=== PATIENT | female | born 1930 | race Caucasian/White ===

== ENCOUNTER 2017-07-04 12:49 | Observation (INO) | payer MEDICARE, BC ==
[2017-07-04] MEDS ORDERED: Aspirin TAB* 325 MG PO ONE (13:08)
[2017-07-04 13:38] LABS: ABS Basophils 0 10^3/ul (0-0.2); ABS Eosinophils 0.1 10^3/ul (0-0.6); ABS Lymphocytes 0.8 10^3/ul (1.0-4.8); ABS Monocytes 0.7 10^3/ul (0-0.8); ABS Nucleated RBC 0 10^3/ul; Hematocrit 34 % (35-47); Hemoglobin 11.4 g/dl (12.0-16.0); Mean Corpuscular HGB Conc 34 g/dl (31-36); Mean Corpuscular Hemoglobin 32 pg (27-31); Mean Corpuscular Volume 96 fL (80-97); Mean Platelet Volume 6 um3 (7.4-10.4); Nucleated Red Blood Cells % 0; Platelet Count 187 10^3/ul (150-450); Red Blood Count 3.52 10^6/ul (4.0-5.4); Red Cell Distribution Width 17 % (10.5-15); White Blood Count 6.6 10^3/ul (3.5-10.8)
[2017-07-04 13:53] LABS: EGFR Non-African American 58.3 (>60)
--- NOTE | 2017-07-04 14:05 | RAD ---
INDICATION: Chest pain with radiation into back, contrast allergy. COMPARISON: Correlation is made with a prior CT of the chest from September 22, 2009 and a prior chest x-ray study from December 12, 2015. TECHNIQUE: A CT scan of the chest was performed without intravenous contrast. Contiguous axial sections were obtained from the lung apices through the lung bases. Images were reconstructed in the coronal and sagittal planes. FINDINGS: The lungs are hyperinflated and clear. No pleural effusion or pneumothorax is seen. There are small Bochdalek hernias present at both lung bases containing retroperitoneal fat on the right and retroperitoneal fat and a small portion of the left kidney on the left side. No significant enlarged mediastinal or hilar lymph nodes are seen. There is a small hiatal hernia. The heart is within normal limits in size. There are coronary artery calcifications present. No pericardial effusion is present. The thoracic aorta is normal in caliber. There is moderate calcific plaque present. Images of the upper abdomen demonstrate postcholecystectomy changes, no acute finding is seen. There is a mild to moderate chronic compression fracture of the T5 vertebral body with loss of height of approximately 40% this appears to be present on the prior CT of the chest from 2009. No other fractures are seen. IMPRESSION: 1. NO EVIDENCE FOR ACUTE FINDING. 2. CHRONIC IMPRESSION FRACTURE OF THE T5 VERTEBRAL BODY. 3. SMALL HIATAL HERNIA. 4. SMALL BILATERAL BOCHDALEK HERNIAS.
[2017-07-04] MEDS ORDERED: Ondansetron INJ* 2 MG/ML VIAL IV PRN (16:49)
[2017-07-04] MEDS ORDERED: cloNIDine 0.2 MG PATCH* 0.2 MG/24 HR 7 DAY PATCH TRANSDERM SCH (17:00)
[2017-07-04] MEDS ORDERED: Verapamil SR TAB* 240 MG PO SCH (18:00)
[2017-07-04] MEDS: Dicyclomine CAP* 10 MG PO SCH (20:32)
[2017-07-04] MEDS: Magnesium Oxide TAB* 400 MG PO SCH (20:32)
[2017-07-04] MEDS: Omeprazole CAP* 20 MG PO SCH (20:32)
[2017-07-04] MEDS: Heparin VIAL(*) 5000 UNITS/ML VIAL (FIVE THOUSAND) SUBCUT SCH (20:32)
--- NOTE | 2017-07-04 21:18 | HP ---
HISTORY AND PHYSICAL: ATTENDING PROVIDER: * (DICTATED BY IDA GARLAND NP) DATE: 07/04/17 ADDENDUM: Please note the repeat troponin came back at 0.031. While not abnormal. It is trending up. She is not having any chest pain currently. My plan at this point were to repeat a troponin in 3 hours to make sure that it is not continuing to elevate. I will repeat an EKG. If the troponin becomes abnormal, I certainly will add on heparin and call Cardiology and get an echo or if she starts having active chest pain again. My plan at this point would be to continue on aspirin. She is on amlodipine, I will continue that. I will give her a small dose of a beta-rafy in terms of her diarrhea that she has been having. I will check stool cultures as well and we will follow her closely and place her on telemetry and continue with medical management. Again , she is asymptomatic at this point. In terms of the beta-rafy, actually I am probably going to hold off. She is already on Calan (verapamil), so I do not want to lower her heart rate. She is rated around the 70s and again if the troponin does continue to elevate then I will consider adding it or if she she becomes symptomatic, but I do think that we should watch her, check another third troponin and make sure it is not trending up and continue to follow. IDA GARLAND NP [id number]/[facility] #: [id number] MTDBrandon
--- NOTE | 2017-07-04 22:22 | ED ---
Tariq Griffin Julia, scribed for Andrea Storey MD on 07/04/17 at 1316 . HPI Chest Pain - HPI Summary HPI Summary: This patient is a 87 year old F BIBA to [facility] accompanied by family with a chief complaint of chest pain radiating to back occurring this morning at 11:30 with spontaneous relief. Patient reports swollen feet and productive cough. Patient has a history of roughly 10 previous episodes with similar symptoms, cause is unknown. Patient reports that she had relief from taking her s NTG this morning. - History of Current Complaint Chief Complaint: EDChestPainROMI Time Seen by Provider: 07/04/17 12:54 Hx Obtained From: Patient Onset/Duration: Started Hours Ago Timing: Lasting Minutes Current Severity: Mild Pain Intensity: 0 Chest Pain Radiates: Yes Chest Pain Radiates To:: Back Associated Signs and Symptoms: Positive: Other: - swollen feet and productive cough - Allergy/Home Medications Allergies/Adverse Reactions: Allergies Allergy/AdvReac Type Severity Reaction Status Date / Time Enalapril [From Vasotec] Allergy Intermediate muscle pain Verified 07/04/17 13: 05 Iodine Allergy Intermediate Hives Verified 07/04/17 13:05 Tetanus Toxoid Allergy Intermediate swelling Verified 07/04/17 13:05 of the arm Valsartan [From Diovan] Allergy Intermediate abnormal Verified 07/04/17 13:05 lab values per pt Sulfa Drugs Allergy Mild weakness Verified 07/04/17 13:05 sodium pentathol Allergy Mild weakness Uncoded 07/04/17 13:05 iv dye Allergy Hives Uncoded 07/04/17 13:05 Home Medications: Home Medications Bumetanide TAB* [Bumex 1 MG TAB*] 0.5 - 1 mg PO DAILY PRN 07/04/17 [History Confirmed 07/04/17] Calcium 500 mg PO BID 07/04/17 [History Confirmed 07/04/17] Colchicine* [Colcrys*] 0.6 mg PO TID PRN 07/04/17 [History Confirmed 07/04/17] Cyanocobalamin [Vitamin B-12] 1,000 mcg PO DAILY 07/04/17 [History Confirmed 11/14] Estradiol VAG CM (NF) [Estrace VAG CM (NF)] 1 applic VAGINAL .TWICE A WEEK PRN 07/04/17 [History Confirmed 07/04/17] Fexofenadine (NF) [Lalitha 180 (NF)] 180 mg PO DAILY PRN 07/04/17 [History Confirmed 07/04/17] Guaifenesin [Tussin Adult] 5 - 10 ml PO Q4HR PRN 07/04/17 [History Confirmed 11/14] Hyoscyamine Sulfate [Levsin] 0.125 mg PO DAILY PRN 07/04/17 [History Confirmed 07/04/17] Loperamide HCl [Imodium A-D] 2 mg PO DAILY PRN 07/04/17 [History Confirmed 07/04] Verapamil SR TAB* [Calan Sr TAB*] 240 mg PO QPM 07/04/17 [History Confirmed 11/14] amLODIPine TAB* [Norvasc 5 mg TAB*] 5 mg PO DAILY 07/04/17 [History Confirmed ] PMH/Surg Hx/FS Hx/Imm Hx Endocrine/Hematology History: Reports: Hx Blood Transfusions - 42 UNITS PRBC & 16 UNITS PLATELETS TOTAL HX, Hx Bone Marrow Disease - MYELODYSPLASIA, Hx Anemia Cardiovascular History: Reports: Hx Hypertension - ON MEDICATION FOR Denies: Hx Congestive Heart Failure, Hx Pacemaker/ICD, Other Cardiovascular Problems/Disorders Respiratory History: Reports: Hx Asthma Denies: Hx Chronic Obstructive Pulmonary Disease (COPD), Other Respiratory Problems/Disorders GI History: Reports: Hx Gastroesophageal Reflux Disease - ON MEDICATION FOR, Hx Hiatal Hernia, Hx Irritable Bowel, Other GI Disorders - COLITIS AT TIMES History: Denies: Other Problems/Disorders Musculoskeletal History: Reports: Hx Arthritis - HANDS, BACK, Hx Tendonitis - LEFT ANKLE, Other Musculoskeletal History - JAW PAIN-ARTHRITIS PER PATIENT Sensory History: Reports: Hx Cataracts, Hx Contacts or Glasses - GLASSES, Hx Vision Problem, Hx Hearing Aid - BILATERAL, Hx Hearing Problem Opthamlomology History: Reports: Hx Cataracts, Hx Contacts or Glasses - GLASSES , Hx Vision Problem Neurological History: Denies: Other Neuro Impairments/Disorders - Cancer History Cancer Type, 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 GALLBLADDER - 1995. HYSTERECTOMY - 2004. APPENDIX, TELESCOPED INTESTINE & LYMPH NODE BIOPSY - 2007. CATARACT - 2003. BREAST BIOPSY - 1958 & 2012. INFUSAPORT PLACED - 2007 & REMOVED - 2009. LEFT BREAST LUMPECTOMY - 04/2013 Hx Anesthesia Reactions: Yes - NAUSEA AND VOMITING Infectious Disease History: Yes Infectious Disease History: Reports: Hx Shingles Denies: Hx Clostridium Difficile, Hx Hepatitis, Hx Human Immunodeficiency Virus (HIV), Hx of Known/Suspected MRSA, Hx Tuberculosis, Hx Known/Suspected VRE , Hx Known/Suspected VRSA, History Other Infectious Disease, Traveled Outside the [place] in Last 30 Days - Family History Known Family History: Positive: Hypertension - Social History Alcohol Use: None Hx Substance Use: No Substance Use Type: Reports: None Hx Tobacco Use: No Smoking Status (MU): Never Smoked Tobacco Review of Systems Negative: Fever, Chills Negative: Erythema Negative: Sore Throat Positive: Chest Pain Positive: Cough - productive. Negative: Shortness Of Breath Negative: Abdominal Pain, Vomiting, Nausea Negative: dysuria, hematuria Positive: Edema - feet. Negative: Myalgia Positive: Rash Neurological: Other - negative - dizziness All Other Systems Reviewed And Are Negative: Yes Physical Exam - Summary Physical Exam Summary: Constitutional: Well-developed, Well-nourished, Alert. (-) Distressed Skin: Warm, Dry HENT: Normocephalic; Atraumatic Eyes: Conjunctiva normal Neck: Musculoskeletal ROM normal neck. (-) JVD, (-) Stridor, (-) Tracheal deviation Cardio: Rhythm regular, rate normal, Heart sounds normal; Intact distal pulses; The pedal pulses are 2+ and symmetric. Radial pulses are 2+ and symmetric. (-) Murmur Pulmonary/Chest wall: Effort normal. (-) Respiratory distress, (-) Wheezes, (-) Rales Abd: Soft, (-) Tenderness, (-) Distension, (-) Guarding, (-) Rebound Musculoskeletal: (-) Edema Lymph: (-) Cervical adenopathy Neuro: Alert, Oriented x3 Psych: Mood and affect Normal Triage Information Reviewed: Yes Vital Signs On Initial Exam: Initial Vitals Temp Pulse Resp BP Pulse Ox 97.8 F 76 18 164/73 99 07/04/17 13:00 07/04/17 13:00 07/04/17 13:00 07/04/17 13:00 07/04/17 13:00 Vital Signs Reviewed: Yes - Perry Coma Scale Coma Scale Total: 15 Diagnostics - Vital Signs Vital Signs Temp Pulse Resp BP Pulse Ox 07/04/17 13:05 99 07/04/17 13:03 76 18 99 07/04/17 13:00 97.8 F 76 18 164/73 99 - Laboratory Lab Results: Lab Results 07/04/17 07/04/17 07/04/17 Range/Units 13:27 13:27 13:27 WBC 6.6 (3.5-10.8) 10^3/ul RBC 3.52 L (4.0-5.4) 10^6/ul Hgb 11.4 L (12.0-16.0) g/dl Hct 34 L (35-47) % MCV 96 (80-97) fL MCH 32 H (27-31) pg MCHC 34 (31-36) g/dl RDW 17 H (10.5-15) % Plt Count 187 (150-450) 10^3/ul MPV 6 L (7.4-10.4) um3 Neut % (Auto) 75.8 (38-83) % Lymph % (Auto) 12.0 L (25-47) % [place] % (Auto) 10.6 H (1-9) % Eos % (Auto) 1.0 (0-6) % Baso % (Auto) 0.6 (0-2) % Absolute Neuts (auto) 5.0 (1.5-7.7) 10^3/ul Absolute Lymphs (auto) 0.8 L (1.0-4.8) 10^3/ul Absolute Monos (auto) 0.7 (0-0.8) 10^3/ul Absolute Eos (auto) 0.1 (0-0.6) 10^3/ul Absolute Basos (auto) 0 (0-0.2) 10^3/ul Absolute Nucleated RBC 0 10^3/ul Nucleated RBC % 0 Sodium 129 L (133-145) mmol/L Potassium 3.8 (3.5-5.0) mmol/L Chloride 95 L (101-111) mmol/L Carbon Dioxide 26 (22-32) mmol/L Anion Gap 8 (2-11) mmol/L BUN 18 (6-24) mg/dL Creatinine 0.91 (0.51-0.95) mg/dL Est GFR ( Amer) 75.0 (>60) Est GFR (Non-Af Amer) 58.3 (>60) BUN/Creatinine Ratio 19.8 (8-20) Glucose 113 H (70-100) mg/dL Lactic Acid 1.0 (0.5-2.0) mmol/L Calcium 9.7 (8.6-10.3) mg/dL Total Bilirubin 0.60 (0.2-1.0) mg/dL AST 35 (13-39) U/L ALT 26 (7-52) U/L Alkaline Phosphatase 117 H (34-104) U/L Troponin I 0.01 (<0.04) ng/mL Total Protein 7.3 (6.4-8.9) g/dL Albumin 4.3 (3.2-5.2) g/dL Globulin 3.0 (2-4) g/dL Albumin/Globulin Ratio 1.4 (1-3) 07/04/17 Range/Units 16:15 WBC (3.5-10.8) 10^3/ul RBC (4.0-5.4) 10^6/ul Hgb (12.0-16.0) g/dl Hct (35-47) % MCV (80-97) fL MCH (27-31) pg MCHC (31-36) g/dl RDW (10.5-15) % Plt Count (150-450) 10^3/ul MPV (7.4-10.4) um3 Neut % (Auto) (38-83) % Lymph % (Auto) (25-47) % [place] % (Auto) (1-9) % Eos % (Auto) (0-6) % Baso % (Auto) (0-2) % Absolute Neuts (auto) (1.5-7.7) 10^3/ul Absolute Lymphs (auto) (1.0-4.8) 10^3/ul Absolute Monos (auto) (0-0.8) 10^3/ul Absolute Eos (auto) (0-0.6) 10^3/ul Absolute Basos (auto) (0-0.2) 10^3/ul Absolute Nucleated RBC 10^3/ul Nucleated RBC % Sodium (133-145) mmol/L Potassium (3.5-5.0) mmol/L Chloride (101-111) mmol/L Carbon Dioxide (22-32) mmol/L Anion Gap (2-11) mmol/L BUN (6-24) mg/dL Creatinine (0.51-0.95) mg/dL Est GFR ( Amer) (>60) Est GFR (Non-Af Amer) (>60) BUN/Creatinine Ratio (8-20) Glucose (70-100) mg/dL Lactic Acid (0.5-2.0) mmol/L Calcium (8.6-10.3) mg/dL Total Bilirubin (0.2-1.0) mg/dL AST (13-39) U/L ALT (7-52) U/L Alkaline Phosphatase (34-104) U/L Troponin I 0.03 (<0.04) ng/mL Total Protein (6.4-8.9) g/dL Albumin (3.2-5.2) g/dL Globulin (2-4) g/dL Albumin/Globulin Ratio (1-3) Result Diagrams: 07/04/17 13:27 07/04/17 13:27 Lab Statement: Any lab studies that have been ordered have been reviewed, and results considered in the medical decision making process. - CT Chest CT Interpretation Completed By: Radiologist - 1. NO EVIDENCE FOR ACUTE FINDING. 2. CHRONIC IMPRESSION FRACTURE OF THE T5 VERTEBRAL BODY. 3. SMALL HIATAL HERNIA. 4. SMALL BILATERAL BOCHDALEK HERNIAS. ED Physician has reviewed this report. - EKG 13:07 Cardiac Rate: NL EKG Rhythm: Sinus Rhythm - at 73 BPM EKG Interpretation: reveals no present STEMI Chest Pain Course/Dx - Course Course Of Treatment: Patient care with Dr. Marks, hospitalist, was discussed at 14:55. They will consult with patient to possibly admit for chest pain. - Diagnoses Provider Diagnoses: Chest pain Discharge - Discharge Plan Condition: Good Disposition: ADMITTED TO [facility] The documentation as recorded by the Tariq lopez Julia accurately reflects the service I personally performed and the decisions made by , Andrea Storey MD.
--- NOTE | 2017-07-04 22:50 | CONS ---
CC: Dr. Riley; Dr. Storey * CONSULTATION REPORT: DATE OF CONSULT: 07/04/17 PRIMARY CARE PROVIDER: Dr. Riley. REQUESTING PHYSICIAN IN CONSULT: Dr. Storey. MY ATTENDING PHYSICIAN WHILE IN THE HOSPITAL: Juanito Marks MD (report dictated by Ida Cramer NP). REASON FOR MEDICAL CONSULTATION: Evaluation for admission. HISTORY OF PRESENT ILLNESS: Mrs. Ventura is an 87-year-old female patient who has a history of hypertension, lymphoma, myelodysplastic syndrome, and a history of breast cancer. She comes in to the ED today stating that for the last 4 to 6 months, she has had progressively worsening decreased sensation and movement in her lower extremities. She has had trouble walking. She has been following with her primary for this and is actually going to be scheduled to see Neurology. She had a routine followup appointment today with her primary. She went to the appointment while she was being discharged from there and on her way out of the office, she started having some chest discomfort, pressure, squeezing. She said it just felt like "if I could burp, I would feel better." She said that she has these episodes previously and she has been diagnosed in the past with esophageal spasm. She will either usually come to the ER, get a GI cocktail, she feels better and then goes home according to her or if she is at home, she will have to take a nitro and this will relieve it. She says she has not had one of these episodes. She cannot remember the last time she had one. She says that her other complaint she has been having is diarrhea 2 to 3 times a day for the last week, but no abdominal pain, no nausea or vomiting, no fevers or chills or any blood in the stool. She said that she felt like this was another spasm. Her happened to be in the waiting room at the doctor' s office. She took a nitro and went away, but staff was alerted at the facility and then EKG, they were concerned for this. They recommended transfer to the ER which she was sent here. She denies having any more discomfort now. She says that typically she has to walk up 9 steps every day to get into her house, which she does every day and she does not get chest discomfort with this. She denies having any pain down the arm. No sweating, no nausea associated with this and no other associated symptoms. There was concern though in the ER as part that this could represent acute coronary syndrome and we were asked to evaluate for admission. PAST MEDICAL HISTORY: Significant for: 1. Hypertension. 2. Lymphoma. 3. Myelodysplastic syndrome. 4. Breast cancer. PAST SURGICAL HISTORY: She has had a tonsillectomy, cholecystectomy, appendectomy, hysterectomy, breast biopsy, and lumpectomy x2. MEDICATIONS: Her home meds include: 1. Verapamil 240 mg p.o. daily. 2. Bumex 0.5 to 1 mg p.o. daily as needed. 3. Bentyl 10 mg p.o. b.i.d. 4. Catapres 1 patch transdermally weekly. 5. Estradiol 1 application vaginally twice weekly. 6. Guaifenesin 5 to 10 cc p.o. every 4 hours as needed. 7. Magnesium oxide 400 mg p.o. t.i.d. 8. Hyoscyamine 0.125 mg p.o. daily as needed. 9. Calcium 500 mg p.o. b.i.d. as needed. 10. Imodium 2 mg p.o. daily as needed. 11. B12 1000 mcg p.o. daily. 12. Fexofenadine 180 mg daily as needed. 13. Colchicine 0.6 mg p.o. t.i.d. as needed. 14. Omeprazole 40 mg p.o. b.i.d. 15. Amlodipine 5 mg p.o. daily. 16. Spironolactone 25 mg p.o. daily. ALLERGIES: Include ENALAPRIL, IODINE, TETANUS, VALSARTAN, and SULFA DRUGS along with SODIUM, FENTANYL, and IV DYE. FAMILY HISTORY: Her mother had a history of heart disease. She had a pacemaker , but neither her mother or her father had a heart attacks before the age of 52. SOCIAL HISTORY: She does not smoke. She does not drink. Surrogate decision maker is her daughter. REVIEW OF SYSTEMS: There is no documented fever. She denied having any significant weight change. There was no double vision. There is no ear discharge. She denied having any rhinorrhea. No sore throat. No thyroid enlargement. She did admit to having the chest discomfort per my HPI. There was no orthopnea, no nocturnal dyspnea. There was no abdominal pain. No nausea , no vomiting. There was no dysuria, no frequency. There was no seizure, no loss of consciousness. No pruritus and no skin ulcerations. Review of 14 systems was completed, all others negative. PHYSICAL EXAMINATION: Vital Signs: Blood pressure 143/69, pulse 74, respirations 16, O2 sat 100%, temperature 98.7. General: At this time, Mrs. Ventura is an 87- year-old female patient. She is sitting in the ED stretcher. She does not appear to be in any acute distress. HEENT: Head: Atraumatic, normocephalic. Eyes: EOMs intact. Sclerae anicteric and not pale. Neck: Supple. Throat: Oral mucosa appears to be moist. No oropharyngeal erythema. Heart: Sounds S1, S2. Regular rate and rhythm. No murmurs, rubs, or gallops. Lungs: Clear to auscultation bilaterally. No wheezes, rales, or rhonchi. Abdomen: Soft, flat, nontender. Bowel sounds are present. Extremities: Pulses are 2+ throughout. She had no peripheral edema. Neurologically, the patient is awake, alert, oriented x3. Tongue is midline. Inspector And Tester were equal. No gross focal deficits. Skin is intact. DIAGNOSTIC STUDIES/LAB DATA: WBC of 6.6, RBC of 3.52, hemoglobin 11.4, hematocrit 34, platelet count of 187. Sodium of 129, potassium of 3.8, chloride of 98, bicarb 26, BUN 18, creatinine of 0.91, glucose of 113, lactate 1 , calcium 9.7. Total bili 0.6, AST 35, ALT 26, alk phos 117. Troponin 0.01. Albumin was 4.3. She did have a chest CT today, which showed no evidence of acute finding, the chronic compression fracture of T5 vertebral body, small hiatal hernia, small bilateral Bochdalek hernias. She had an EKG obtained today, which revealed a normal sinus rhythm, rate of 73 with a PAC and left fascicular block, which she has had previously. Comparing with previous EKG, no changes. Old medical records were reviewed. ASSESSMENT AND PLAN: Mrs. Ventura is an 87-year-old female patient with low risk for acute coronary syndrome. Her only risk factors are her age and hypertension. We were asked to evaluate the patient due to the chest pain. Our recommendations at this point are: 1. Chest pain. Again, at this point, I did discuss in detail with the family that I could do a second troponin today and ultimately rule out that she did not have an myocardial infarction; however, again I did express that stress testing does help us to determine if she possibly had any underlying coronary artery disease and I explained her that her risk factors are low and I felt this could be done outpatient. She has had similar symptoms like this in the past that does respond to nitro, which esophageal spasm would. I think with 2 negative troponins and negative EKG, it would be safe for her to be discharge with an outpatient stress test. I did discuss this with my attending, Dr. Marks. He was in agreement with this as well. I would recommend continuing her meds as prescribed and follow with her primary. 2. History of esophageal spasm. Continue her meds as prescribed. 3. History of hypertension. Follow with primary. 4. Bilateral lower extremity weakness. Again, she has got outpatient Neurology followup set up by Dr. Riley. She is following with Dr. Riley for this already. She has an MRI ordered outpatient. 5. Myelodysplastic syndrome. Follow with primary. 6. History of breast cancer. Follow with primary. 7. Diarrhea. At this point, I would recommend stool studies to be done here. Those will be collected, she gives a sample. Most likely, it is a viral gastroenteritis. She could follow with her primary for this. Issues to return to the ER included but not limited to chest pain, shortness of breath, fevers, chills, nausea, vomiting, or any other worsening symptoms. I did discuss with this patient should she have any chest pain with exertion that she should come back to the ER immediately for further workup. Again, we are awaiting for second troponin. If the second troponin comes back positive, then at that point I will see we would admit her and contact Cardiology. TIME SPENT: On consult was 60 minutes, greater than half that time was spent face- to-face with the patient obtaining history and physical, the other half time was spent going over plan of care with the patient and implementing the plan of care. I did discuss plan of care with my attending, Dr. Marks; he is in agreement. IDA CRAMER NP [id number]/[facility] #: [id number] FIORDALIZA
[2017-07-05] MEDS: Heparin VIAL(*) 5000 UNITS/ML VIAL (FIVE THOUSAND) SUBCUT SCH (04:56)
[2017-07-05 08:38] LABS: ABS Basophils 0 10^3/ul (0-0.2); ABS Eosinophils 0.1 10^3/ul (0-0.6); ABS Lymphocytes 1.5 10^3/ul (1.0-4.8); ABS Monocytes 0.8 10^3/ul (0-0.8); ABS Neutrophils 4.8 10^3/ul (1.5-7.7); ABS Nucleated RBC 0 10^3/ul; Eosinophil % 1.3 % (0-6); Hematocrit 30 % (35-47); Hemoglobin 10.2 g/dl (12.0-16.0); Lymphocyte % 20.4 % (25-47); Mean Corpuscular HGB Conc 34 g/dl (31-36); Mean Corpuscular Hemoglobin 33 pg (27-31); Mean Corpuscular Volume 97 fL (80-97); Mean Platelet Volume 7 um3 (7.4-10.4); Nucleated Red Blood Cells % 0.1; Platelet Count 176 10^3/ul (150-450); Red Blood Count 3.14 10^6/ul (4.0-5.4); Red Cell Distribution Width 17 % (10.5-15); White Blood Count 7.2 10^3/ul (3.5-10.8)
[2017-07-05 08:52] LABS: INR 1.11 (0.77-1.02)
[2017-07-05 08:55] LABS: EGFR Non-African American 47.4 (>60)
[2017-07-05] MEDS ORDERED: Spironolactone TAB* 25 MG PO SCH (09:00)
[2017-07-05] MEDS ORDERED: Aspirin Low Dose CHEW TAB* 81 MG PO SCH (09:00)
[2017-07-05] MEDS ORDERED: amLODIPine TAB* 5 MG PO SCH (09:00)
[2017-07-05 09:04] VITALS: BP 131/46
[2017-07-05] MEDS: Dicyclomine CAP* 10 MG PO SCH (09:08)
[2017-07-05] MEDS: Magnesium Oxide TAB* 400 MG PO SCH (09:08)
[2017-07-05] MEDS: Omeprazole CAP* 20 MG PO SCH ×2 (09:15→10:14)
--- NOTE | 2017-07-05 18:12 | DS ---
CC: Dr. Riley* DISCHARGE SUMMARY: DATE OF ADMISSION: 07/04/17 DATE OF DISCHARGE: 07/05/17 PRIMARY CARE PROVIDER: Dr. Riley. ATTENDING PHYSICIAN WHILE IN THE HOSPITAL: Angela Sandoval MD * (report dictated by Ida Cramer NP). PRINCIPAL DIAGNOSIS: Include chest pain. SECONDARY DIAGNOSES: Include: 1. Bilateral lower extremity weakness in the process of being worked up with her PCP. 2. History of lymphoma. 3. History of breast cancer . 4. History of hypertension. 5. Viral conjunctivitis. DISCHARGE MEDICATIONS: New medications: 1. Aspirin 81 mg daily. 2. Artificial tears 1 drop every 2 hours as needed to both eyes. 3. Verapamil 240 mg p.o. daily. 4. Bumex 0.5 to 1 mg p.o. daily as needed. 5. Bentyl 10 mg p.o. b.i.d. 6. Clonidine patch one patch transdermally weekly. 7. Estradiol vaginal cream 1 application vaginally twice a week. 8. Tussin 5 to 10 cc p.o. every 4 hours as needed. 9. Magnesium oxide 400 mg p.o. t.i.d. 10. Hyoscyamine 0.125 mg p.o. daily as needed. 11. Calcium 500 mg p.o. b.i.d. 12. Imodium 2 tablets p.o. daily. 13. B12 1000 mcg p.o. daily. 14. Synthroid 50 mcg daily. 15. Fexofenadine 180 mg p.o. daily as needed. 16. Colcrys 0.6 mg p.o. t.i.d. as needed. 17. Prilosec 40 mg p.o. b.i.d. 18. Amlodipine 5 mg daily. 19. Spironolactone 25 mg p.o. daily. HISTORY OF PRESENT ILLNESS AND HOSPITAL COURSE: I refer you to my H and P dictated yesterday for further details. In short, Ms. Ventura is an 87-year- old female patient that presented to the ER originally after she had gone to her doctor's appointment with Dr. Riley's office. On her way out from the appointment, she was having chest discomfort and EKG was obtained immediately. The patient was brought back into the office. She had taken a nitro from her . The patient did state that she has a history of esophageal spasm and that is what this discomfort felt like. It felt very similar to her previous chest discomfort episodes. She says that she has not had any discomfort with exertion or ambulation, but her primary was concerned because of discomfort and she was sent to the ER for further evaluation. The patient was evaluated here in the ED initially. Her initial troponin was 0.01, but then it went up to 0.03 , later the last night it went down to 0.02. The patient remained chest pain free. She had had no more symptoms. She was feeling well. She was ambulating with assistance to the bathroom, not having any chest discomfort. I evaluated her this morning. She was anxious for discharge. She had no more episodes. Her EKG remained unchanged. Again, her serial troponins had all remained negative. So at this point, it was felt that she could be safely discharged home with an outpatient stress test with a plan. The patient will be calling Dr. Riley on Friday to discuss the stress test. I did order it already as a chemical stress test in the outpatient setting. She had no episodes on telemetry. I started her on baby aspirin, which she is to continue and I have instructed her to come back for any chest pain, shortness of breath, abdominal pain, chills, or fevers. While here in the hospital this morning, she was complaining that her eyes felt in her words crusted. I did examine them, they did appear to have some mild erythema, but the conjunctiva did not appear to be erythematic. The sclerae did not appear to be reddened or erythematic. There is some again maybe mild erythema at the conjunctiva, but I felt at this point that it could be a severe viral conjunctivitis, so I ordered at this point p.r.n. Artificial Tears and she can follow with Dr. Rilye next week for further evaluation. I instructed her should she have worsening discharge or worsening redness of the eye that she may need antibiotic drops. CONDITION AT DISCHARGE: Stable. STATUS DURING HOSPITALIZATION: Observation. PHYSICAL EXAM AT DISCHARGE: Vital Signs: Blood pressure 113/41, pulse 58, respirations 16, O2 sat 96%, temperature 99.5. General: At this time, Mrs. Ventura is an 87-year-old female patient. She appears to be well nourished, well developed. She is sitting in the hospital bed. She does not appear to be in any acute distress. HEENT: Head is atraumatic. Eye: Sclerae anicteric. There was no erythema. There was mild erythema at the conjunctiva bilaterally. EOMs are intact. Pupils are reactive to light. Neck: Supple. Throat: Oral mucosa appears to be moist. No oropharyngeal erythema. Heart: Sounds S1 and S2, regular rate and rhythm. No murmurs, rubs, or gallops. Lungs: Clear to auscultation bilaterally. No wheezes, rales, or rhonchi. Abdomen: Soft, flat, nontender. Bowel sounds are present. Extremities: Pulses are 2+ throughout. She is moving all 4 extremities, 5/5 strength. Neurologic: The patient is awake, alert, and oriented x3. Tongue is midline. Fire Supervisor are equal. No gross focal deficits. Skin: Intact. LABORATORY DATA ON DISCHARGE: WBC is 7.2, RBC of 3.14, hemoglobin 10.2, hematocrit of 30, and platelet count of 176. Again, initial troponin was 0.01, is now 0.02, it was 0.03 at 1600 hours yesterday. Her sodium was 129, potassium 3.8, chloride 95, bicarb 26, BUN 18, creatinine 0.91, and glucose 113. AST 35, ALT 25, albumin of 4.3. She did have a chest CT obtained yesterday, which showed no evidence for acute finding, chronic compression fracture at T5 vertebral body, small hiatal hernia , small bilateral Bochdalek hernias. She did have a serial EKGs. Initial EKG in the ER yesterday does show a sinus rhythm, rate of 76. She does have a left anterior vesicular block with the PAC , but there was no acute ST elevations noted. Repeat EKG appeared to be similar , the rate was slower now at 52, but again no ST elevations or T-wave inversions were noted. It appeared to be similar to that previous EKG, just the rate is little bit slower. ISSUES TO BE ADDRESSED IN FOLLOWUP: 1. Chest pain. I suspect this was probably esophageal spasm, but I do think a stress test is warranted. She is low risk, so I think this can be done outpatient, which I have set up. I instructed the patient to touch base with the PCP on Friday, as the patient was reluctant, if she needed the stress test or not. 2. Bilateral lower extremity weakness. Again, she is going to be following up with her primary. She has an appointment with Neurology. I suspect that she may have some underlying neuropathy. 3. Lymphoma. Follow with primary. 4. Hypertension. Continue medications as prescribed. 5. Myelodysplastic syndrome. Follow with PCP. Her hemoglobin and H and H were stable. 6. History of breast cancer. Follow with PCP. 7. Reports of diarrhea. Again, she had no more diarrhea while here in the hospital, so we were unable to obtain specimen, so I think this is now resolving. 8. Conjunctivitis. Again appears to be viral and it is very mild. I did order p.r.n. Artificial Tears. She can follow up with her primary for this. ISSUES TO RETURN TO THE HOSPITAL: Include but not limited to chest pain, shortness of breath, fevers, chills, nausea, vomiting, chest pain, shortness of breath or any other worrisome symptoms. This is a complex medical case, I refer you to the medical chart for further details. TIME SPENT: Greater than 40 minutes was spent on the time of this discharge, greater than half the time was spent going over the plan of discharge with the patient and the other half time was spent implementing the plan. I did discuss the plan with my attending Dr. Sandoval who is in agreement. IDA CRAMER NP [id number]/[facility] #: [id number] FIORDALIZA
== END 2017-07-05 10:15 | disposition home or self-care (01) ==
LOC: ED 12:49 → MEDTELE 16:47
PROVIDERS: ADMIT Internal Medicine; ATTEND Internal Medicine
DX: R07.89 Other chest pain (principal); R53.1 Weakness; Z85.72 Personal history of non-Hodgkin lymphomas; Z85.3 Personal history of malignant neoplasm of breast; I10 Essential (primary) hypertension; B30.9 Viral conjunctivitis, unspecified; E03.9 Hypothyroidism, unspecified; Z79.899 Other long term (current) drug therapy; D46.9 Myelodysplastic syndrome, unspecified; R19.7 Diarrhea, unspecified
CPT/HCPCS: 36415; 71250; 80048; 80053; 80061; 83605; 84484; 85025; 85610; 93005; 99284; A9270-GY; G0378; J1644

== ENCOUNTER 2017-09-10 08:32 | Inpatient (IN) | payer MEDICARE, BC ==
[2017-09-10] MEDS ORDERED: Morphine INJ* 2 MG/ML 1 ML CARPUJECT IV ONE (09:34)
--- NOTE | 2017-09-10 09:54 | RAD ---
Indication: LEFT knee pain following instability and fall. Neuropathy. Comparison: No relevant prior exams available on the [facility] [place] PACS for comparison. Technique: AP and crosstable lateral views LEFT knee. Report: Mildly comminuted transverse fracture at the distal metaphysis of the femur with one bone width posterior displacement and up to 2.5 cm cephalocaudal override of the fracture fragments. The distal anterior fracture margin of the proximal fracture fragment appears to intersect the knee joint space. Moderate joint effusion with fat fluid level. The femoral condyles remain normally located at the tibial plateau. Bone density appears decreased throughout. Soft tissue swelling greatest anteriorly. Peripheral vascular calcifications. IMPRESSION: Comminuted displaced fracture at the distal metaphysis of the femur with evidence for extension of the proximal bone fragment into the knee joint capsule with associated lipohemarthrosis..
[2017-09-10 10:36] LABS: ABS Basophils 0 10^3/ul (0-0.2); ABS Eosinophils 0.2 10^3/ul (0-0.6); ABS Lymphocytes 0.9 10^3/ul (1.0-4.8); ABS Monocytes 0.6 10^3/ul (0-0.8); ABS Neutrophils 5.2 10^3/ul (1.5-7.7); ABS Nucleated RBC 0 10^3/ul; Eosinophil % 2.2 % (0-6); Hematocrit 32 % (35-47); Hemoglobin 10.6 g/dl (12.0-16.0); Lymphocyte % 12.5 % (25-47); Mean Corpuscular HGB Conc 33 g/dl (31-36); Mean Corpuscular Hemoglobin 31 pg (27-31); Mean Corpuscular Volume 94 fL (80-97); Mean Platelet Volume 7 um3 (7.4-10.4); Nucleated Red Blood Cells % 0; Platelet Count 170 10^3/ul (150-450); Red Cell Distribution Width 18 % (10.5-15); White Blood Count 6.8 10^3/ul (3.5-10.8)
[2017-09-10 10:56] LABS: EGFR Non-African American 55.5 (>60)
[2017-09-10] MEDS ORDERED: Morphine INJ* 4 MG/ML 1 ML SYRINGE (NEW SYRINGE VERSION) IV ONE (11:20)
[2017-09-10] MEDS ORDERED: Colchicine* 0.6 MG TAB PO PRN (12:14)
[2017-09-10] MEDS ORDERED: cloNIDine 0.2 MG PATCH* 0.2 MG/24 HR 7 DAY PATCH TRANSDERM SCH (13:00)
[2017-09-10] MEDS: NS 0.9% 1000 ML* 1,000 ML IV SCH (13:33)
[2017-09-10] MEDS: Pantoprazole IV* 40 MG IV SCH (13:35)
[2017-09-10] MEDS: Morphine INJ* 2 MG/ML 1 ML CARPUJECT IV PRN ×2 (13:39→15:46)
[2017-09-10] MEDS: Gabapentin CAP(*) 100 MG PO SCH ×2 (13:42→20:31)
[2017-09-10 15:19] LABS: Urine Appearance Cloudy; Urine Blood 1+ (Negative); Urine Color Yellow; Urine Ketones Negative (Negative); Urine Protein Negative (Negative); Urine Urobilinogen Negative (Negative)
[2017-09-10] MEDS ORDERED: Omeprazole CAP* 20 MG PO SCH (16:30)
[2017-09-10] MEDS: oxyCODONE TAB* 5 MG TAB PO PRN ×2 (16:56→23:48)
--- NOTE | 2017-09-10 17:44 | RAD ---
INDICATION: Traumatic fracture of the left femur. COMPARISON: Comparison is made with a prior x-ray study of the left knee from September 10, 2017. TECHNIQUE: 2 views of the left femur were obtained. FINDINGS: Again note is made of a transverse comminuted fracture of the distal metaphysis of the femur. The fracture fragments are overriding. The distal fragment is displaced one shaft diameter posterior relative to the proximal fragment and unchanged from the prior x-ray study. No additional fracture is seen. IMPRESSION: TRANSVERSE, COMMINUTED, DISPLACED FRACTURE OF THE DISTAL FEMUR.
[2017-09-10] MEDS: Ondansetron INJ* 2 MG/ML VIAL IV PRN (18:20)
[2017-09-10] MEDS: Verapamil SR TAB* 240 MG PO SCH (18:20)
--- NOTE | 2017-09-10 18:20 | HP ---
ADMISSION HISTORY AND PHYSICAL: DATE OF ADMISSION: 09/10/17 ADMITTING PHYSICIAN: Raffaele Soria MD. CONSULTING PHYSICIAN: Kathi Whitaker MD. PRIMARY CARE PROVIDER: Dr. Riley. ATTENDING PHYSICIAN: Raffaele Soria MD.* (DICTATED BY KARINE BARRIOS NP) HISTORY OF PRESENT ILLNESS: This is a very pleasant 87-year-old female patient who reports she was at home in her usual state of health, trying to get to her walker as she was getting out of bed this morning. The patient had a bit of weakness as she was trying to grasp her walker and ended up coming down on her left knee and then into a sitting position. She states that she did not strike her head or lose consciousness. She did not feel dizzy or have any other symptoms or any episode, it was essentially a mechanical fall. However, once the patient was on floor she was not able to get up. She had a significant amount of swelling around the left knee. Emergency medical services were called. She was brought to the emergency department for evaluation. Upon examination, the patient is very, very tender and had a lot of edema that was increasing. She had an x-ray in the emergency department, which shows a comminuted displaced distal left femur fracture. The patient was also evaluated by Orthopedics and it was determined that she should be admitted for surgical fixation of her left femur fracture. PAST MEDICAL HISTORY: Significant for: 1. Hypertension. 2. Lymphoma. 3. Myelodysplastic syndrome. 4. Breast cancer. 5. Esophageal spasm. 6. Chronic lower extremity neuropathy. 7. Irritable bowel syndrome. PAST SURGICAL HISTORY: Significant for: 1. Tonsillectomy as a child. 2. Cholecystectomy. 3. Appendectomy. 4. Hysterectomy. 5. Breast biopsy and breast lumpectomy x2. Also of significant note, her last treatment for her breast cancer was in May 2016. MEDICATIONS: At home include: 1. Gabapentin 100 mg 3 times a day. 2. Melatonin 3 mg at bedtime as needed. 3. Colchicine 0.6 mg 3 times a day as needed. 4. Maalox 10 mL p.o. 4 times a day as needed. 5. Extra strength Tylenol 1000 mg q.8 hours as needed. 6, Omeprazole 40 mg 2 times a day. 7. Magnesium oxide 400 mg 2 times a day. 8. Vitamin D 3000 units daily. 9. Calcium carbonate 800 mg 2 times a day. 10. Vitamin B12 1000 mcg daily. 11. Clonidine patch 0.2 mg weekly. 12. Amlodipine 5 mg daily. 13. Verapamil 240 mg in the evenings. 14. Spironolactone 25 mg daily. ALLERGIES: Include allergies to ENALAPRIL, IODINE, TETANUS TOXIN, VALSARTAN, SULFA CLASS DRUGS, FENTANYL, AND IV CONTRAST DYE. FAMILY HISTORY: Mother has a history of heart disease. Father also had some unknown cardiac disease. SOCIAL HISTORY: The patient does not smoke, does not drink alcohol and denies any illicit drug use. Her surrogate decision maker is her daughter, who is at the bedside with her now. REVIEW OF SYSTEMS: The patient is complaining of some left lower extremity pain , approximately 5/10. Also, complaining of some epigastric pain which she describes as her esophageal spasm, which is intermittent and currently under control. She denies any fever, fatigue or chills. No chest pain, no shortness of breath, no abdominal pain. No nausea, no vomiting, no diarrhea and no further constitutional complaints. PHYSICAL EXAMINATION GENERAL: The patient is awake and alert, well appearing. VITAL SIGNS: Currently, blood pressure 124/62, heart rate 67, respiratory rate 18, oxygen saturation is 100% on room air. HEENT: The patient is atraumatic and normocephalic. PERRLA with nonicteric sclerae. She is hard of hearing. NECK: Supple, nontender. No JVD noted. No thyromegaly appreciated. No carotid bruit auscultated. CARDIOVASCULAR: S1 and S2 are present. Rate and rhythm are regular. No murmurs, gallops, or rubs appreciated. ABDOMEN: Soft, nontender, and nondistended. Positive bowel sounds in all 4 quadrants. No organomegaly appreciated. MUSCULOSKELETAL: There is no clubbing and no cyanosis. She has a significant amount of edema superior to the knee, circumferential in nature, nonpitting. Very tender to the touch. No erythema or warmth noted. She has a +2 distal pulse, pedal pulse, and popliteal pulse noted. She has gross sensation intact, limited motor function on the fracture affected side. However, no issues with the right lower extremity. NEUROLOGIC: She has no neurologic deficit. She is awake and alert x3. DIAGNOSTIC STUDIES/LAB DATA: WBC 6.8, RBC 3.40, hemoglobin 10.6, hematocrit 32 , platelets 170,000. Sodium 129, potassium 3,7, chloride 97, CO2 24, BUN 19, creatinine 0.95. GFR is 55.5. Glucose 101, calcium 9.6, bilirubin 0.40, AST 16, ALT 12, alk phos 81. CRP less than 1.00, total protein 6.6, albumin 3.8, globulin 2.8. Radiologic exam: X-ray of the left lower extremity: Impression as interpreted by the radiologist shows a comminuted displaced fracture of the distal metaphysis of the femur with evidence for extension of the proximal bone fragment into the knee joint capsule with associated labral hemarthrosis. IMPRESSION: This is an 87-year-old female status post mechanical fall, sustaining a distal comminuted fracture of the left femur being admitted for surgical intervention. PLAN: The patient is going to be admitted to medical service. I have reviewed her previous cardiac workup on 07/08/17. The patient had a nuclear stress test which showed low risk for any cardiac events. Also, the patient has no family history of cardiac disease. She has no current changes on her EKG, which shows regular sinus rhythm and no ectopy. As such, she has a low cardiac risk for surgery indicating that the benefit would greatly outweigh the risk as she is normally ambulatory with a walker and wishes to pursue continuing to being at her baseline. DIAGNOSES: 1. Left femur fracture. 2. Hyponatremia, acute on chronic. 3. Hypertension. 4. History of esophageal spasm and gastroesophageal reflux disease. 5. History of breast cancer. 6. History of lymphoma. 7. History of myelodysplastic syndrome. Plan at this time again is to be admitted. She has already been evaluated by Surgery. We are waiting to find out when her surgery would be. In the meantime , she will have pain control with morphine IV q.2 hours as needed, oxycodone 5 mg q.6 hours as needed, Zofran q.4 hours as needed. She will be n.p.o. with gentle IV fluid hydration at 75 mL per hour. She can also have some IV Protonix at this point for her esophageal spasm and gastroesophageal reflux disease. Again, we will keep her n.p.o. pending Surgery's decision whether she would be going to the OR today or tomorrow. At this point, I am going to hear back from Surgery to determine if the patient can eat. If she can, I will also give her GI cocktail to assist with her gastroesophageal reflux disease and esophageal spasms. Her home medications verapamil, Catapres, magnesium oxide, calcium, Imodium, B12, amlodipine, spironolactone will all be continued. We will hold her colchicine and her Bentyl for now. The rest of the patient's course would be determined by further diagnostics, laboratories and any other input from other providers that is warranted during this admission. Again, we will be following this patient closely and rechecking her labs prior to and after her surgical intervention. Also of note, I have reached out to Orthopedics regarding DVT prophylaxis again depending on when surgery will be. I would prefer Lovenox given the femur fracture. However, we will defer to Surgery on their preference for DVT prophylaxis. The patient is a full code. This has been discussed with her, her , and her daughter at the time of admission. TIME SPENT: In excess of 60 minutes, more than half of that was spent face-to- face with the patient, with her and her family. Rest of the time with care planning with the staff and implementing of the plan for admission. KARINE BARRIOS NP [id number]/[facility] #: [id number] FIORDALIZA
[2017-09-10] MEDS ORDERED: Ciprofloxacin 400MG IVPREMIX(* 400 MG/200 ML BAG IVPB ONE (18:24)
[2017-09-10] MEDS: Magnesium Oxide TAB* 400 MG PO SCH (20:30)
[2017-09-10] MEDS: Calcium Carbonate CHEW TAB* 500 MG (TUMS) PO SCH (20:31)
[2017-09-10] MEDS ORDERED: CMCS: Melatonin (NF) 3 MG TAB PO PRN (21:00)
[2017-09-10] MEDS: Enoxaparin(*) 30 MG/0.3 ML SYR SUBCUT SCH (21:08)
[2017-09-11] MEDS: NS 0.9% 1000 ML* 1,000 ML IV SCH ×2 (01:54→20:55)
[2017-09-11] MEDS: Morphine INJ* 2 MG/ML 1 ML CARPUJECT IV PRN ×3 (01:58→10:19)
[2017-09-11 05:53] LABS: ABS Basophils 0 10^3/ul (0-0.2); ABS Eosinophils 0 10^3/ul (0-0.6); ABS Lymphocytes 1.2 10^3/ul (1.0-4.8); ABS Monocytes 0.6 10^3/ul (0-0.8); ABS Neutrophils 2.5 10^3/ul (1.5-7.7); ABS Nucleated RBC 0 10^3/ul; Eosinophil % 0.8 % (0-6); Hematocrit 24 % (35-47); Hemoglobin 7.8 g/dl (12.0-16.0); Lymphocyte % 27.1 % (25-47); Mean Corpuscular HGB Conc 33 g/dl (31-36); Mean Corpuscular Hemoglobin 32 pg (27-31); Mean Corpuscular Volume 97 fL (80-97); Mean Platelet Volume 7 um3 (7.4-10.4); Nucleated Red Blood Cells % 0.2; Platelet Count 125 10^3/ul (150-450); Red Blood Count 2.45 10^6/ul (4.0-5.4); Red Cell Distribution Width 18 % (10.5-15); White Blood Count 4.2 10^3/ul (3.5-10.8)
[2017-09-11 07:12] LABS: EGFR Non-African American 69.7 (>60)
[2017-09-11] MEDS: Ondansetron INJ* 2 MG/ML VIAL IV PRN (07:51)
--- NOTE | 2017-09-11 08:31 | PN ---
Subjective Date of Service: 09/11/17 Interval History: Pt c/o nausea and pain in left leg Objective Active Medications: Calcium Carbonate (Tums*) 750 mg PO BID [facility] Last Admin: 09/10/17 20:31 Dose: 750 mg Cholecalciferol (Vitamin D Tab*) 3,000 units PO DAILY [facility] Clonidine HCl (Vfimxvem-Dve-7 0.2 Mg Patch*) 0.2 mg TRANSDERM WEEKLY [facility] Cyanocobalamin (Vitamin B12 Tab*) 1,000 mcg PO DAILY [facility] Enoxaparin Sodium (Lovenox(*)) 30 mg SUBCUT Q24H [facility] Last Admin: 09/10/17 21:08 Dose: 30 mg Gabapentin (Neurontin Cap(*)) 100 mg PO TID [facility] Last Admin: 09/10/17 20:31 Dose: 100 mg Sodium Chloride (Ns 0.9% 1000 Ml*) 1,000 mls @ 100 mls/hr IV PER RATE [facility] Last Admin: 09/11/17 01:54 Dose: 100 mls/hr Magnesium Oxide (Magox 400 Tab*) 400 mg PO BID [facility] Last Admin: 09/10/17 20:30 Dose: 400 mg Melatonin (Melatonin (Nf)) 3 mg PO BEDTIME PRN; Protocol PRN Reason: SLEEP Morphine Sulfate (Morphine Inj (Syringe)*) 2 mg IV Q2H PRN PRN Reason: SEVERE PAIN Last Admin: 09/11/17 05:53 Dose: 2 mg Ondansetron HCl (Zofran Inj*) 4 mg IV Q6H PRN PRN Reason: NAUSEA Last Admin: 09/11/17 07:51 Dose: 4 mg Oxycodone HCl (Roxycodone Tab*) 5 mg PO Q6H PRN PRN Reason: PAIN Last Admin: 09/10/17 23:48 Dose: 5 mg Pantoprazole Sodium (Protonix Iv*) 40 mg IV DAILY [facility] Last Admin: 09/10/17 13:35 Dose: 40 mg Verapamil HCl (Calan Sr Tab*) 240 mg PO QPM [facility] Last Admin: 09/10/17 18:20 Dose: 240 mg Vital Signs - 8 hr 09/11/17 09/11/17 09/11/17 01:55 01:58 04:00 Temperature Pulse Rate Respiratory 18 Rate Blood Pressure (mmHg) O2 Sat by Pulse Oximetry 09/11/17 09/11/17 09/11/17 04:04 05:53 07:48 Temperature 98.3 F Pulse Rate 60 Respiratory 16 16 16 Rate Blood Pressure 108/44 (mmHg) O2 Sat by Pulse 98 Oximetry 09/11/17 08:21 Temperature 98.8 F Pulse Rate 58 Respiratory 20 Rate Blood Pressure 117/41 (mmHg) O2 Sat by Pulse 98 Oximetry Oxygen Devices in Use Now: None Appearance: 87 yo f in nAD, AAOx3 Eyes: No Scleral Icterus, PERRLA Ears/Nose/Mouth/Throat: NL Teeth, Lips, Gums, Mucous Membranes Moist Neck: NL Appearance and Movements; NL JVP, Trachea Midline Respiratory: Symmetrical Chest Expansion and Respiratory Effort, Clear to Auscultation Cardiovascular: NL Sounds; No Murmurs; No JVD, RRR, No Edema Abdominal: NL Sounds; No Tenderness; No Distention Lymphatic: No Cervical Adenopathy Extremities: No Edema, No Clubbing, Cyanosis, - - left leg in immobilizer Skin: No Rash or Ulcers, No Nodules or Sclerosis Neurological: Alert and Oriented x 3, NL Muscle Strength and Tone Result Diagrams: 09/11/17 05:26 09/11/17 05:26 Assess/Plan/Problems-Billing Assessment: 87 yo F with h/o HTN, MDS, CLL breast ca, esophageal spasm, neuropathy presents after a mechanical fall with distal left femur fx. - Patient Problems (1) Femur fracture, left Comment: planned to OR today with Dr. Whitaker will transfuse preop (2) LFT elevation Comment: possible due to hypoperfusion after the fall, pt c/o nausea, denies abd pain cont to monitor, no need to postpone surgery (3) Myelodysplasia, low grade Comment: with worsening anemia will transfuse preop (4) HTN (hypertension) Comment: normal SBP-cont verapamil, clonidine holding aldactone, norvasc (5) Hyponatremia Comment: chronic , cont to monitor (6) DVT prophylaxis Comment: SCD's preop Status and Disposition: inpatient
[2017-09-11] MEDS: Pantoprazole IV* 40 MG IV SCH (08:43)
[2017-09-11] MEDS: Calcium Carbonate CHEW TAB* 500 MG (TUMS) PO SCH ×2 (08:45→20:55)
[2017-09-11] MEDS: Cyanocobalamin TAB* 500 MCG PO SCH (08:46)
[2017-09-11] MEDS: Gabapentin CAP(*) 100 MG PO SCH ×3 (08:46→20:54)
[2017-09-11] MEDS: Cholecalciferol TAB* 1000 UNITS PO SCH (08:46)
[2017-09-11] MEDS: Magnesium Oxide TAB* 400 MG PO SCH ×2 (08:46→20:55)
[2017-09-11] MEDS ORDERED: Spironolactone TAB* 25 MG PO SCH (09:00)
[2017-09-11] MEDS ORDERED: amLODIPine TAB* 5 MG PO SCH (09:00)
[2017-09-11] MEDS ORDERED: cloNIDine 0.2 MG PATCH* 0.2 MG/24 HR 7 DAY PATCH TRANSDERM SCH (09:00)
[2017-09-11] MEDS ORDERED: fentaNYL* 50 MCG/ML 2 ML VIAL (100 MCG VIAL) ONE (14:34)
[2017-09-11] MEDS ORDERED: Midazolam* 1 MG/ML 2 ML VIAL (2 MG) ONE ×2 (14:34→15:46)
[2017-09-11] MEDS ORDERED: KETAMINE HCL* 50 MG/ML 10 ML VIAL ONE (14:34)
[2017-09-11] MEDS ORDERED: ceFAZolin 1 GM VIAL(*) 1 GM in NS 0.9% 50 ML* 50 ML IVPB ONE (14:51)
--- NOTE | 2017-09-11 14:57 | CONS ---
CONSULTATION REPORT: DATE OF CONSULT: 09/11/17 Thank you for this orthopedic consultation. CHIEF COMPLAINT: Left knee pain. HISTORY OF PRESENT ILLNESS: Ms. Ventura is an 87-year-old female who fell in her home on 09/10/17 while getting out of bed. She reports she fell lightly but immediately had deformity and 10/10 pain in the left knee. She was unable to stand or bear weight. She was brought to [facility] by ambulance. Radiographs showed a distal femur fracture. I am consulted for orthopedic fracture care. The patient reports she normally at baseline uses a walker and ambulates short amounts. 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 PAST SURGICAL HISTORY: T and A, cholecystectomy, appendectomy, hysterectomy, breast lumpectomy. HOME MEDICATIONS: 1. Gabapentin 100 mg p.o. t.i.d. 2. Melatonin 3 mg p.o. q.h.s. 3. Colchicine 0.6 mg p.o. t.i.d. 4. Vitamin D 2000 units p.o. daily. 5. Calcium carbonate 800 mg p.o. b.i.d. 6. Vitamin B12 1000 mcg p.o. daily. 7. Clonidine 0.2 mg p.o. q. weekly. 8. Amlodipine 5 mg p.o. daily. 9. Verapamil 240 mg p.o. q.h.s. 10. Spironolactone 25 mg p.o. daily. 11. Magnesium oxide 400 mg p.o. b.i.d. 12. Omeprazole 40 mg p.o. b.i.d. 13. Tylenol 1000 mg p.r.n. 14. Maalox 10 mL p.o. p.r.n. ALLERGIES: ENALAPRIL, IODINE, TETANUS, VALSARTAN, SULFA, FENTANYL, IV CONTRAST DYE. FAMILY HISTORY: Maternal heart disease, paternal heart disease. SOCIAL HISTORY: The patient lives with her . Her surrogate decision maker is her daughter. She ambulates with a walker short distance. No tobacco , alcohol, or recreational drug use. REVIEW OF SYSTEMS: Fourteen systems were reviewed with the patient. Positive of some epigastric pain, which is her normal esophageal spasm. Positive for left knee pain. Negative for fever, chills, chest pain, shortness of breath. Otherwise, the patient reports review of systems is negative or not relevant. PHYSICAL EXAMINATION: Vitals: Temperature 98.3, pulse of 60, blood pressure 108/44. General: The patient is a thin, frail-appearing female, in no apparent distress, alert and oriented x3, pleasant mood and appropriate affect. Her daughter and are at the bedside. HEENT: Atraumatic, normocephalic. Pupils equal and reactive to light. Chest: Unlabored breathing. Abdomen: Soft, nontender, and nondistended. Bilateral upper extremities: Patient can forward flex the shoulders to 120 degrees without pain. Skin is intact. No abrasions or open wounds. No palpable masses or lymph nodes. 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 Full sensation to light touch. 2+ palpable radial pulses. Right lower extremity: The patient's skin is intact. She can flex the hip and knees to 90 degrees. No bony tenderness to palpation. Positive dorsiflexion and plantarflexion. Baseline decreased sensation to light touch in her foot. 2+ palpable DP pulse. Left lower extremity: The patient's leg is in a knee immobilizer. She has obvious deformity along the distal femur but no skin tenting. Tenderness to palpation here. No tenderness to palpation at the ankle, distal tibia, or proximal femur at the hip. She demonstrates dorsiflexion and plantarflexion. Decreased sensation to light touch is her baseline at the foot. 2+ palpable DP pulse. RADIOGRAPHS: Multiple views of the left femur and left knee show a comminuted displaced fracture of the distal supracondylar region of the femur with intracondylar extension into the joint. LABORATORY DATA: White blood cells 6.8, red blood cells 3.4, hematocrit 32 down to 24 this morning, platelets 170 down to 125 this morning. Sodium 129, potassium 3.7, BUN and creatinine 19 and 0.95 respectively. Globulin 2.8, albumin 3.8. ASSESSMENT AND PLAN: Ms. Ventura is an 87-year-old female with significant medical comorbidities, now status post fall in her home with a comminuted displaced left distal femoral fracture. The patient, her daughter, her , and I discussed operative and nonoperative treatment options. They would very much like to proceed with operative fixation of this fracture to enable her to ambulate. This is my best medical recommendation. Due to her age and multiple medical comorbidities, there is significant risk in my opinion. I expect her bone quality to be poor and osteopenic. My plan is to reduce the fracture and place a distal femoral locking plate with multiple locked screws. Informed consent was obtained from the patient, her daughter, and . They wish to proceed. They understand the risks of surgery include but are not limited to bleeding, infection, damage to nearby structures, continued pain, need for further surgery, failure of the hardware, vascular injury due to the fracture pattern, stroke, heart attack, blood clot, and . She wishes to proceed. She will be on bed rest. She should have a Zheng catheter in place. She should have p.r.n. analgesia. We will plan to order the distal locking plate for surgery on 09/11/17. [id number]/[facility] #: [id number] FIORDALIZA
[2017-09-11] MEDS ORDERED: ceFAZolin 1 GM in Dextrose (*) 1 GM/50 ML BAG IVPB ONE (15:18)
[2017-09-11] MEDS ORDERED: Bupivacaine 0.5% SDV PF* 10-30ML VIAL ONE ×2 (15:19→18:20)
[2017-09-11] MEDS ORDERED: Propofol* 10 MG/ML 20 ML BTL IV PUSH ONE (18:20)
[2017-09-11] MEDS ORDERED: Phenylephrine INJ* 10 MG/ML 1 ML VIAL (10 MG) ONE (18:20)
[2017-09-11] MEDS ORDERED: Glycopyrrolate IV* 0.2 MG/ML 1 ML VIAL ONE (18:20)
[2017-09-11] MEDS ORDERED: Bupivacaine 0.25% SDV* 30 ML ONE (18:20)
[2017-09-11] MEDS ORDERED: EPHEDrine (Pressors)* 50 MG/ML VIAL ONE (18:20)
[2017-09-11] MEDS ORDERED: Morphine INJ* 2 MG/ML 1 ML CARPUJECT IV PRN (18:22)
[2017-09-11] MEDS ORDERED: Ondansetron INJ* 2 MG/ML VIAL IV PRN (18:22)
[2017-09-11] MEDS ORDERED: Naloxone* 0.4 MG/ML 1 ML VIAL IV PRN (18:22)
--- NOTE | 2017-09-11 18:38 | ED ---
Kapil Griffin Angela, scribed for Mian Jimenez MD on 09/10/17 at 0844 . Lower Extremity - HPI Summary HPI Summary: This pt is a 87 y/o female presenting to [facility] via EMS c/o left knee pain and swelling today. Pt reports she stepped out of her bed today trying to reach her walker, when her left knee gave out and fell. She notes she heard a pop from her left knee. Denies head strike or LOC. Pt states she landed on a sitting position. She denies hitting or striking her left knee. - History of Current Complaint Chief Complaint: EDExtremityLower Stated Complaint: LT KNEE INJURY Time Seen by Provider: 09/10/17 08:36 Hx Obtained From: Patient Mechanism Of Injury: Other - head a pop in left knee Onset of Pain: Immediate Onset/Duration: Still Present Severity Currently: Severe Pain Intensity: 7 Pain Scale Used: 0-10 Numeric Timing: Lasting Hours Location: Is Discrete @ - left knee Associated Signs And Symptoms: Positive: Swelling, Knee Pain - left. Negative: Fever, Weakness, Dizziness, Syncope Aggravating Factor(s): Weight Bearing Alleviating Factor(s): Rest - Allergies/Home Medications Allergies/Adverse Reactions: Allergies Allergy/AdvReac Type Severity Reaction Status Date / Time enalaprilat [From Vasotec] Allergy Muscle Ache Verified 09/10/17 09:01 Iodinated Contrast- Oral and Allergy Hives Verified 09/10/17 09:01 IV Dye Sulfa (Sulfonamide Allergy Weakness Verified 09/10/17 09:01 Antibiotics) Tetanus Vaccines and Toxoid Allergy Swelling Verified 09/10/17 09:01 thiopental Allergy Unknown Verified 09/10/17 09:01 Reaction Details valsartan [From Diovan] Allergy abnormal Verified 09/10/17 09:01 labs sodium pentathol Allergy Mild weakness Uncoded 07/07/17 12:01 iv dye Allergy Hives Uncoded 07/07/17 12:01 Home Medications: Home Medications Acetaminophen [Acetaminophen Extra Strength] 1,000 mg PO Q8H PRN 09/10/17 [ History Confirmed 09/10/17] Al Hydrox/Mg Hydrox/Yeni BULK* [Mylanta - BULK BOT*] 10 ml PO QID PRN 09/10/17 [ History Confirmed 09/10/17] Calcium Carbonate [Calcium] 800 mg PO BID 09/10/17 [History Confirmed 09/10/17] Cholecalciferol TAB* [Vitamin D TAB*] 3,000 unit PO DAILY 09/10/17 [History Confirmed 09/10/17] Cyanocobalamin TAB* [Vitamin B12 TAB*] 1,000 mcg PO DAILY 09/10/17 [History Confirmed 09/10/17] Gabapentin CAP(*) [Neurontin 100 mg CAP(*)] 100 mg PO TID 09/10/17 [History Confirmed 09/10/17] Melatonin (NF) [Meladox] 3 mg PO BEDTIME PRN 09/10/17 [History Confirmed ] PMH/Surg Hx/FS Hx/Imm Hx Endocrine/Hematology History: Reports: Hx Blood Transfusions - 42 UNITS PRBC & 16 UNITS PLATELETS TOTAL HX, Hx Bone Marrow Disease - MYELODYSPLASIA, Hx Anemia Cardiovascular History: Reports: Hx Angina, Hx Coronary Artery Disease, Hx Hypercholesterolemia, Hx Hypertension - ON MEDICATION FOR Denies: Hx Congestive Heart Failure, Hx Myocardial Infarction, Hx Pacemaker/ ICD, Other Cardiovascular Problems/Disorders Respiratory History: Reports: Hx Asthma Denies: Hx Chronic Obstructive Pulmonary Disease (COPD), Other Respiratory Problems/Disorders GI History: Reports: Hx Gastroesophageal Reflux Disease - ON MEDICATION FOR, Hx Hiatal Hernia, Hx Irritable Bowel, Other GI Disorders - COLITIS AT TIMES History: Denies: Other Problems/Disorders Musculoskeletal History: Reports: Hx Arthritis - HANDS, BACK, Hx Tendonitis - LEFT ANKLE, Other Musculoskeletal History - JAW PAIN-ARTHRITIS PER PATIENT Sensory History: Reports: Hx Cataracts, Hx Contacts or Glasses - GLASSES, Hx Vision Problem, Hx Hearing Aid - BILATERAL, Hx Hearing Problem Opthamlomology History: Reports: Hx Cataracts, Hx Contacts or Glasses - GLASSES , Hx Vision Problem Neurological History: Denies: Other Neuro Impairments/Disorders Psychiatric History: Denies: Hx Panic Disorder - Cancer History Cancer Type, 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 GALLBLADDER - 1995. HYSTERECTOMY - 2004. APPENDIX, TELESCOPED INTESTINE & LYMPH NODE BIOPSY - 2007. CATARACT - 2003. BREAST BIOPSY - 1958 & 2012. INFUSAPORT PLACED - 2007 & REMOVED - 2009. LEFT BREAST LUMPECTOMY - 04/2013 Hx Anesthesia Reactions: Yes - NAUSEA AND VOMITING Infectious Disease History: No Infectious Disease History: Reports: Hx Shingles Denies: Hx Clostridium Difficile, Hx Hepatitis, Hx Human Immunodeficiency Virus (HIV), Hx of Known/Suspected MRSA, Hx Tuberculosis, Hx Known/Suspected VRE , Hx Known/Suspected VRSA, History Other Infectious Disease, Traveled Outside the [place] in Last 30 Days - Family History Known Family History: Positive: Hypertension - Social History Alcohol Use: None Hx Substance Use: No Substance Use Type: Reports: None Hx Tobacco Use: No Smoking Status (MU): Never Smoked Tobacco Review of Systems Negative: Fever ENT: Negative Cardiovascular: Negative Respiratory: Negative Musculoskeletal: Other - left knee pain Positive: Edema - left knee Skin: Negative Neurological: Negative All Other Systems Reviewed And Are Negative: Yes Physical Exam - Summary Physical Exam Summary: VITAL SIGNS: Reviewed. GENERAL: Patient is a well-developed and nourished female who is lying comfortable in the stretcher. Patient is not in any acute respiratory distress. HEAD AND FACE: No signs of trauma. No ecchymosis, hematomas or skull depressions. No sinus tenderness. EYES: PERRLA, EOMI x 2, No injected conjunctiva, no nystagmus. EARS: Hearing grossly intact. Ear canals and tympanic membranes are within normal limits. MOUTH: Oropharynx within normal limits. NECK: Supple, trachea is midline, no adenopathy, no JVD, no carotid bruit, no c- spine tenderness, neck with full ROM. CHEST: Symmetric, no tenderness at palpation LUNGS: Clear to auscultation bilaterally. No wheezing or crackles. CVS: Regular rate and rhythm, S1 and S2 present, no murmurs or gallops appreciated. ABDOMEN: Soft, non-tender. No signs of distention. No rebound no guarding, and no masses palpated. Bowel sounds are normal. EXTREMITIES: FROM in all major joints, no cyanosis or clubbing. LLE: left knee swelling and tenderness. There is no deformity. Left leg is a little shorten. There are good pulses and good capillary refill. NEURO: Alert and oriented x 3. No acute neurological deficits. Speech is normal and follows commands. SKIN: Dry and warm Triage Information Reviewed: Yes Vital Signs On Initial Exam: Initial Vitals Temp Pulse Resp BP Pulse Ox 98.5 F 67 18 167/63 98 09/10/17 08:33 09/10/17 08:33 09/10/17 08:33 09/10/17 08:33 09/10/17 08:33 Vital Signs Reviewed: Yes Diagnostics - Vital Signs Vital Signs Temp Pulse Resp BP Pulse Ox 09/10/17 08:33 98.5 F 67 18 167/63 98 - Laboratory Result Diagrams: 09/10/17 09:58 09/10/17 09:58 Lab Statement: Any lab studies that have been ordered have been reviewed, and results considered in the medical decision making process. - Radiology Left knee XR Xray Interpretation: Positive (See Comments) - IMPRESSION: Comminuted displaced fracture at the distal metaphysis of the femur with evidence for extension of the proximal bone fragment into the knee joint capsule with associated lipohemarthrosis. Dr. Jimenez has reviewed this radiology report. Radiology Interpretation Completed By: Radiologist - EKG 10:36 Cardiac Rate: NL EKG Rhythm: Sinus Rhythm - at 74 bpm EKG Interpretation: No ST elevations. Re-Evaluation - Re-Evaluation First Eval Re-Evaluation Time: 11:16 Comment: I reassessed the pt. Good capillary refill and good pulses. Lower Extremity Course/Dx - Course Assessment/Plan: This pt is a 87 y/o female presenting to [facility] via EMS c/o left knee pain and swelling today. Pt reports she stepped out of her bed today trying to reach her walker, when her left knee gave out and fell. She notes she heard a pop from her left knee. Denies head strike or LOC. Pt states she landed on a sitting position. She denies hitting or striking her left knee. Test results without any significant abnormalities except for slight anemia, slight hyponatremia. UA is positive for UTI. The pt was given ciprofloxacin for the UTI. Left knee XR: Comminuted displaced fracture at the distal metaphysis of the femur with evidence for extension of the proximal bone fragment into the knee joint capsule with associated lipohemarthrosis. At this point I discussed the case with Dr. Whitaker, orthopedist, who recommended for the pt to be admitted to the hospitalist for further work up and management. She will consult for the pt. I discussed with Dr. Soria, hospitalist, who has accepted the pt for admission. Pt is hemodynamically stable, alert and oriented x3. - Diagnoses Provider Diagnoses: Displaced comminuted fracture of shaft of femur, UTI (urinary tract infection) - Physician Notifications Discussed Care Of Patient With: Kathi Whitaker Time Discussed With Above Provider: 09:44 Instructed by Provider To: Other - I discussed pt care with Dr. Whitaker, orthopedics. [10:27] I discussed case with Dr. Soria, hospitalist, who has accepted the pt for admission. Discharge - Discharge Plan Condition: Stable Disposition: ADMITTED TO [facility] The documentation as recorded by the Kapil lopez Angela accurately reflects the service I personally performed and the decisions made by me, Mian Jimenez MD.
[2017-09-11] MEDS: Verapamil SR TAB* 240 MG PO SCH (19:02)
[2017-09-11] MEDS ORDERED: Morphine INJ* 4 MG/ML 1 ML CARPUJECT IV ONE (19:55)
[2017-09-11] MEDS: oxyCODONE TAB* 5 MG TAB PO PRN (20:55)
[2017-09-11] MEDS: Enoxaparin(*) 30 MG/0.3 ML SYR SUBCUT SCH (20:55)
[2017-09-12] MEDS: oxyCODONE TAB* 5 MG TAB PO PRN ×3 (02:50→20:48)
[2017-09-12] MEDS ORDERED: oxyCODONE/Acetamin 5/325 MG* TAB PO PRN (03:27)
[2017-09-12] MEDS ORDERED: Morphine INJ* 2 MG/ML 1 ML CARPUJECT IV PRN (03:28)
[2017-09-12] MEDS: ceFAZolin 1 GM* Q8H x 3 doses IVPB SCH ×6 (04:25→20:48)
[2017-09-12] MEDS: Pantoprazole IV* 40 MG IV SCH (07:57)
[2017-09-12] MEDS: Cholecalciferol TAB* 1000 UNITS PO SCH (07:57)
[2017-09-12] MEDS: Gabapentin CAP(*) 100 MG PO SCH ×3 (07:57→20:49)
[2017-09-12] MEDS: Cyanocobalamin TAB* 500 MCG PO SCH (07:57)
[2017-09-12] MEDS: Calcium Carbonate CHEW TAB* 500 MG (TUMS) PO SCH ×2 (07:57→20:48)
[2017-09-12] MEDS: Magnesium Oxide TAB* 400 MG PO SCH ×2 (07:59→20:49)
[2017-09-12] MEDS: Docusate CAP* 100 MG PO SCH ×2 (07:59→20:49)
[2017-09-12] MEDS: oxyCODONE/Acetamin 5/325 MG* TAB PO PRN ×2 (08:00→17:56)
--- NOTE | 2017-09-12 09:08 | PN ---
Progress Note - Progress Note Date of Service: 09/12/17 SOAP: Subjective: 87 y/o female s/p ORIF of R femur fracture yb DR. Whitaker 09/12/2017. Patient reports pain in femur, controlled by pain medications. discussed surgery, non- weight bearing. VSS, afebrile overnight. Objective: General- Well appearing, NAD, AO resting in bed comfortably. MSK- LLE- DF/PF = b/l, PT 1+, negative homans sign, mild deformity of L ankle, patient states chronic. dressing intact, immoblizer placed. Vital Signs Temp 98.9 F 09/12/17 07:33 Pulse 90 09/12/17 07:33 Resp 14 09/12/17 10:49 BP 120/44 09/12/17 07:33 Pulse Ox 91 09/12/17 02:43 Intake & Output 09/11/17 09/12/17 09/12/17 18:59 06:59 18:59 Intake Total 2210 60 1075 Output Total 250 500 Balance 1960 -440 1075 Weight 50.802 kg Intake: IV Fluids 1885 925 NS (0.9%) 885 925 lr 1000 Oral 0 60 150 Packed Cells 325 Output: Zheng 250 500 Other: # Bowel Movements 0 Assessment: Stable 87 y/o female s/p ORIF of R femur fracture yb DR. Whitaker 09/12/2017. Plan: - DVT prophylaxis- lovenox - Continue PT/ OT - NWB L femur - Follow up with Dr. Whitaker within 10-14 days - H&H - awaiting labs, difficult stick. - post-op IV ABX - cefazolin - UTI- e. coli, Cefazolin post-op, keflex for 4 days. Active Medications Generic Name Dose Route Start Last Admin Trade Name Freq PRN Reason Stop Dose Admin Calcium Carbonate 750 mg 09/10/17 21:00 09/12/17 07:57 Tums* PO 750 mg BID MARTA Administration Cholecalciferol 3,000 units 09/11/17 09:00 09/12/17 07:57 Vitamin D Tab* PO 3,000 units DAILY MARTA Administration Clonidine HCl 0.2 mg 09/11/17 09:00 09/11/17 10:20 [id number] 0.2 Mg Patch* TRANSDERM 0.2 mg Th@0900 MARTA Administration Cyanocobalamin 1,000 mcg 09/11/17 09:00 09/12/17 07:57 Vitamin B12 Tab* PO 1,000 mcg DAILY MARTA Administration Docusate Sodium 100 mg 09/12/17 09:00 09/12/17 07:59 Colace Cap* PO 100 mg BID MARTA Administration Enoxaparin Sodium 30 mg 09/10/17 21:00 09/11/17 20:55 Lovenox(*) SUBCUT 30 mg Q24H MARTA Administration Gabapentin 100 mg 09/10/17 14:00 09/12/17 07:57 Neurontin Cap(*) PO 100 mg TID MARTA Administration Sodium Chloride 1,000 mls @ 100 mls/hr 09/10/17 13:15 09/11/17 20:55 Ns 0.9% 1000 Ml* IV 100 mls/hr PER RATE MARTA Administration Cefazolin Sodium 1 gm/ Sodium 50 mls @ 200 mls/hr 09/12/17 04:00 09/12/17 04: 25 Chloride IVPB 09/12/17 20:14 200 mls/hr Q8H MARTA Administration Magnesium Oxide 400 mg 09/10/17 21:00 09/12/17 07:59 Magox 400 Tab* PO 400 mg BID MARTA Administration Melatonin 3 mg 09/10/17 21:00 Melatonin (Nf) PO BEDTIME PRN SLEEP Protocol Morphine Sulfate 2 mg 09/12/17 03:28 Morphine Inj (Syringe)* IV Q2H PRN PAIN - SEVERE Ondansetron HCl 4 mg 09/10/17 12:45 09/11/17 07:51 Zofran Inj* IV 4 mg Q6H PRN Administration NAUSEA Oxycodone HCl 5 mg 09/10/17 12:22 09/12/17 02:50 Roxycodone Tab* PO 5 mg Q6H PRN Administration PAIN Oxycodone/Acetaminophen 1 tab 09/12/17 03:27 09/12/17 08:00 Percocet 5/325 Tab* PO 1 tab Q4H PRN Administration PAIN - MILD Oxycodone/Acetaminophen 2 tab 09/12/17 03:27 Percocet 5/325 Tab* PO Q4H PRN PAIN - MODERATE Pantoprazole Sodium 40 mg 09/10/17 13:00 09/12/17 07:57 Protonix Iv* IV 40 mg DAILY MARTA Administration Verapamil HCl 240 mg 09/10/17 18:00 09/11/17 19:02 Calan Sr Tab* PO Not Given QPM MARTA
--- NOTE | 2017-09-12 12:09 | PN ---
Subjective Date of Service: 09/12/17 Interval History: Pt feels well. Pain controlled with meds. Labs not drawn yet due to poor IV access, midline is ordered Objective Active Medications: Calcium Carbonate (Tums*) 750 mg PO BID [facility] Last Admin: 09/12/17 07:57 Dose: 750 mg Cholecalciferol (Vitamin D Tab*) 3,000 units PO DAILY [facility] Last Admin: 09/12/17 07:57 Dose: 3,000 units Clonidine HCl ([id number]-Ywq-9 0.2 Mg Patch*) 0.2 mg TRANSDERM Th@0900 [facility] Last Admin: 09/11/17 10:20 Dose: 0.2 mg Cyanocobalamin (Vitamin B12 Tab*) 1,000 mcg PO DAILY [facility] Last Admin: 09/12/17 07:57 Dose: 1,000 mcg Docusate Sodium (Colace Cap*) 100 mg PO BID [facility] Last Admin: 09/12/17 07:59 Dose: 100 mg Enoxaparin Sodium (Lovenox(*)) 30 mg SUBCUT Q24H [facility] Last Admin: 09/11/17 20:55 Dose: 30 mg Gabapentin (Neurontin Cap(*)) 100 mg PO TID [facility] Last Admin: 09/12/17 07:57 Dose: 100 mg Sodium Chloride (Ns 0.9% 1000 Ml*) 1,000 mls @ 100 mls/hr IV PER RATE [facility] Last Admin: 09/11/17 20:55 Dose: 100 mls/hr Cefazolin Sodium 1 gm/ Sodium (Chloride) 50 mls @ 200 mls/hr IVPB Q8H [facility] Stop: 09/12/17 20:14 Last Admin: 09/12/17 04:25 Dose: 200 mls/hr Magnesium Oxide (Magox 400 Tab*) 400 mg PO BID [facility] Last Admin: 09/12/17 07:59 Dose: 400 mg Melatonin (Melatonin (Nf)) 3 mg PO BEDTIME PRN; Protocol PRN Reason: SLEEP Morphine Sulfate (Morphine Inj (Syringe)*) 2 mg IV Q2H PRN PRN Reason: PAIN - SEVERE Ondansetron HCl (Zofran Inj*) 4 mg IV Q6H PRN PRN Reason: NAUSEA Last Admin: 09/11/17 07:51 Dose: 4 mg Oxycodone HCl (Roxycodone Tab*) 5 mg PO Q6H PRN PRN Reason: PAIN Last Admin: 09/12/17 02:50 Dose: 5 mg Oxycodone/Acetaminophen (Percocet 5/325 Tab*) 1 tab PO Q4H PRN PRN Reason: PAIN - MILD Last Admin: 09/12/17 08:00 Dose: 1 tab Oxycodone/Acetaminophen (Percocet 5/325 Tab*) 2 tab PO Q4H PRN PRN Reason: PAIN - MODERATE Pantoprazole Sodium (Protonix Iv*) 40 mg IV DAILY [facility] Last Admin: 09/12/17 07:57 Dose: 40 mg Verapamil HCl (Calan Sr Tab*) 240 mg PO QPM [facility] Last Admin: 09/11/17 19:02 Dose: Not Given Vital Signs - 8 hr 09/12/17 09/12/17 09/12/17 04:30 07:33 07:57 Temperature 98.9 F Pulse Rate 90 Respiratory 18 16 16 Rate Blood Pressure 120/44 (mmHg) 09/12/17 09/12/17 08:00 10:49 Temperature Pulse Rate Respiratory 16 14 Rate Blood Pressure (mmHg) Oxygen Devices in Use Now: None, Nasal Cannula Appearance: 87 yo F in nAD, AAOx3 Eyes: No Scleral Icterus, PERRLA Ears/Nose/Mouth/Throat: NL Teeth, Lips, Gums, Mucous Membranes Moist Neck: NL Appearance and Movements; NL JVP, Trachea Midline Respiratory: Symmetrical Chest Expansion and Respiratory Effort, Clear to Auscultation Cardiovascular: NL Sounds; No Murmurs; No JVD Abdominal: NL Sounds; No Tenderness; No Distention, No Hepatosplenomegaly Lymphatic: No Cervical Adenopathy Extremities: No Clubbing, Cyanosis, - - left ankle edema ,left knee in immobilizer, dressings not removed Skin: No Nodules or Sclerosis Neurological: Alert and Oriented x 3, NL Muscle Strength and Tone Result Diagrams: 09/11/17 05:26 09/11/17 05:26 Microbiology and Other Data: Microbiology 09/10/17 15:00 Urine Culture - Final Urine Escherichia Coli Assess/Plan/Problems-Billing Assessment: 87 yo F with h/o HTN, MDS, CLL breast ca, esophageal spasm, neuropathy presents after a mechanical fall with distal left femur fx. - Patient Problems (1) Femur fracture, left Comment: S/p ORIF of left femur by Dr. Whitaker on 09/11/17 (2) LFT elevation Comment: possible due to hypoperfusion after the fall, pt c/o nausea, denies abd pain cont to monitor,labs today pending (3) Myelodysplasia, low grade Comment: with worsening anemia s/p transfusion on 09/11/17-labs pending today (4) HTN (hypertension) Comment: normal SBP-cont verapamil, clonidine holding aldactone, norvasc (5) Hyponatremia Comment: chronic , cont to monitor (6) DVT prophylaxis Comment: SCD's preop Status and Disposition: inpatient
[2017-09-12 12:40] LABS: ABS Basophils 0 10^3/ul (0-0.2); ABS Eosinophils 0 10^3/ul (0-0.6); ABS Lymphocytes 1.5 10^3/ul (1.0-4.8); ABS Monocytes 1.1 10^3/ul (0-0.8); ABS Neutrophils 4.7 10^3/ul (1.5-7.7); ABS Nucleated RBC 0 10^3/ul; Eosinophil % 0.1 % (0-6); Hematocrit 20 % (35-47); Hemoglobin 6.8 g/dl (12.0-16.0); Lymphocyte % 20.2 % (25-47); Mean Corpuscular HGB Conc 34 g/dl (31-36); Mean Corpuscular Hemoglobin 32 pg (27-31); Mean Corpuscular Volume 93 fL (80-97); Mean Platelet Volume 7 um3 (7.4-10.4); Nucleated Red Blood Cells % 0; Platelet Count 111 10^3/ul (150-450); Red Blood Count 2.16 10^6/ul (4.0-5.4); Red Cell Distribution Width 18 % (10.5-15); White Blood Count 7.3 10^3/ul (3.5-10.8)
[2017-09-12 13:14] LABS: EGFR Non-African American 70.7 (>60)
--- NOTE | 2017-09-12 15:11 | OP ---
OPERATIVE REPORT: DATE OF OPERATION: 09/11/17 DATE OF : [birth year] SURGEON: Kathi Whitaker MD. LEDGE MAN: IRENE Brewer. Mr. Nguyen did help throughout the procedure with preparation of the leg, wound retraction, reduction of the fracture, and wound closure. ANESTHESIOLOGIST: Dr. Miller. ANESTHESIA: Spinal. PRE-OP DIAGNOSES: Comminuted displaced fracture of the left distal femur, supracondylar comminution as well as intracondylar extension. POST-OP DIAGNOSIS: Comminuted displaced fracture of the left distal femur, supracondylar comminution as well as intracondylar extension. OPERATIVE PROCEDURE: Open reduction and internal fixation of the left distal femur fracture. HARDWARE: This is a Uri distal femoral locking plate. This is a 10 hole plate. Three 4.5 corti hair screws were used and nine 5.0 locking screws were used. ESTIMATED BLOOD LOSS: 500 cc. COMPLICATIONS: None. SPECIMENS: None. BRIEF HISTORY/INDICATIONS: Ms. Ventura is an 87-year-old female who fell in her home on 09/10/17 whi le getting out of bed. She had immediate deformity and pain in her left knee. She was brought to [facility] and diagnosed with a distal femoral fracture. She was admitted to the [facility] t team and optimized for surgery. I was consulted for orthopedic fracture care and she wished to pro ceed with operative fixation. Informed consent was obtained from the patient and her family. They understand she is a high risk pa tient in my opinion due to her comorbidities, age, and general frailty. They understand the risks of the surgery included but were not limited to bleeding, infection, damage to nearby structures, gay nued pain, need for further surgery, intraoperative fracture, nerve palsy, hardware failure and loose sheri, need for further surgery, failure of the bone to heal, stroke, heart attack, blood clot, and de ath. They wished to proceed. INTRAOPERATIVE FINDINGS: Ms. Ventura was found to have a comminuted distal femoral fracture. There was a large amount of comminution in the supracondylar region especially anteriorly. There was also intercondylar extension versus intraarticular extension that split the two condyles of the distal fem ur. She was noted to have osteopenia throughout the case. DESCRIPTION OF PROCEDURE: Ms. Ventura was identified in the preanesthesia unit. Her left lower extre mity was marked as the correct operative site. Informed consent was signed and placed in the chart. The patient was taken to the operating room and placed under spinal anesthesia. A Zheng catheter barnes d already been placed. Left lower extremity was prepped and draped in the usual sterile fashion. Pre op time-out was made to correctly identify the patient's side and site. Appropriate perioperative an tibiotics were given within 1 hour of incision. A straight lateral approach was used to the distal femur and midshaft femur. A 10 blade was used to make the incision with a slight curve distally anteriorly. Electrocautery was used to dissect through the subcutaneous fat to the lateral fascial layer. Lateral fascial layer was then incised in line w ith a skin incision. Electrocautery and Jauregui elevator was used to meticulously dissect the vastus la teralis off the lateral fascia and this was carefully retracted anteriorly. The distal femoral fract ure comminution was immediately identified. Bulb syringe was used to irrigate the area of the fractur e. Any soft tissue or blood clot was carefully removed. Point of reduction forceps were placed proximal and distal to the fracture. The distal femur had a i ntraarticular, intercondylar split. Point of reduction forceps were used to obtain an adequate reduc tion of the distal femur. Using AO technique, a lag screw was placed across these condyles to hold t he reduction. Next, reduction maneuver was performed to bring the femur out to length. AP and later al C-arm views confirmed a proper reduction of the fracture. A 10 hole distal femoral Uri lockin g plate was chosen. This was carefully placed according to the AP and lateral C-arm views. Two shahnaz ical screws were now placed, one distal to the fracture and one proximal to the fracture to bring the plate down to the lateral femur. AP and lateral C-arm views showed a satisfactory reduction of the fracture as well as satisfactory placement of the plate. Reduction forceps were removed and the frac ture reduction was maintained. Next, 4 locking screws were placed distal to the fracture through the plate. One of these was unicortical due to interference with the initially placed lag screw. Next, 5 additional locking screws placed proximal to the fracture site. Good stability and bridging of the fracture site was obtained. Once again, the significant anterior distal comminution was noted. The articular surface was visualized and had satisfactory reduction wi th no visible step-off at the intercondylar fracture. The wound was copiously irrigated. Final C-ar m views were satisfactory. Lateral fascia was reapproximated using interrupted #1 Vicryl. The rest of the incision were closed in layered fashion using 0 and 2-0 Vicryls. Skin was closed with shaun . Sterile Xeroform, 4x4s, and Webril were used to cover the incision. Huber wrap and knee immobilizer placed over this. The patient's anesthesia was reversed without difficulty. She was taken to the P ACU in stable condition. Intended weightbearing will be nonweightbearing, left lower extremity. She will have Lovenox for DVT prophylaxis. [id number]/[facility] #: [id number]
[2017-09-12] MEDS: Verapamil SR TAB* 240 MG PO SCH (17:57)
[2017-09-12] MEDS: Cephalexin CAP* 500 MG PO SCH (20:48)
[2017-09-12] MEDS: Enoxaparin(*) 30 MG/0.3 ML SYR SUBCUT SCH (20:49)
[2017-09-13 05:43] LABS: ABS Basophils 0 10^3/ul (0-0.2); ABS Eosinophils 0.1 10^3/ul (0-0.6); ABS Lymphocytes 1.4 10^3/ul (1.0-4.8); ABS Monocytes 1.2 10^3/ul (0-0.8); ABS Neutrophils 5.1 10^3/ul (1.5-7.7); ABS Nucleated RBC 0 10^3/ul; Eosinophil % 0.7 % (0-6); Hematocrit 28 % (35-47); Hemoglobin 9.7 g/dl (12.0-16.0); Lymphocyte % 18.2 % (25-47); Mean Corpuscular HGB Conc 34 g/dl (31-36); Mean Corpuscular Hemoglobin 31 pg (27-31); Mean Corpuscular Volume 92 fL (80-97); Mean Platelet Volume 7 um3 (7.4-10.4); Nucleated Red Blood Cells % 0; Platelet Count 105 10^3/ul (150-450); Red Blood Count 3.11 10^6/ul (4.0-5.4); Red Cell Distribution Width 17 % (10.5-15); White Blood Count 7.8 10^3/ul (3.5-10.8)
[2017-09-13 05:59] LABS: EGFR Non-African American 71.8 (>60)
[2017-09-13] MEDS: oxyCODONE/Acetamin 5/325 MG* TAB PO PRN ×2 (07:48→16:06)
[2017-09-13] MEDS: Calcium Carbonate CHEW TAB* 500 MG (TUMS) PO SCH ×2 (08:51→22:19)
[2017-09-13] MEDS: Cholecalciferol TAB* 1000 UNITS PO SCH (08:52)
[2017-09-13] MEDS: Docusate CAP* 100 MG PO SCH ×2 (08:53→22:15)
[2017-09-13] MEDS: Gabapentin CAP(*) 100 MG PO SCH ×3 (08:53→22:17)
[2017-09-13] MEDS: Magnesium Oxide TAB* 400 MG PO SCH ×2 (08:53→22:19)
[2017-09-13] MEDS: Cephalexin CAP* 500 MG PO SCH ×2 (08:53→22:16)
[2017-09-13] MEDS: Cyanocobalamin TAB* 500 MCG PO SCH (08:53)
[2017-09-13] MEDS: Pantoprazole IV* 40 MG IV SCH (08:54)
[2017-09-13] MEDS ORDERED: Magnesium Hydroxide LIQ* 30 ML UDC PO PRN (12:03)
--- NOTE | 2017-09-13 12:06 | PN ---
Subjective Date of Service: 09/13/17 Interval History: pt feels well. Stood up today. appetite increasing Objective Active Medications: Calcium Carbonate (Tums*) 750 mg PO BID [facility] Last Admin: 09/13/17 08:51 Dose: 750 mg Cephalexin HCl (Keflex Cap*) 500 mg PO BID [facility] Stop: 09/14/17 21:00 Last Admin: 09/13/17 08:53 Dose: 500 mg Cholecalciferol (Vitamin D Tab*) 3,000 units PO DAILY [facility] Last Admin: 09/13/17 08:52 Dose: 3,000 units Clonidine HCl (Rqexqlic-Lje-3 0.2 Mg Patch*) 0.2 mg TRANSDERM Th@0900 [facility] Last Admin: 09/11/17 10:20 Dose: 0.2 mg Cyanocobalamin (Vitamin B12 Tab*) 1,000 mcg PO DAILY [facility] Last Admin: 09/13/17 08:53 Dose: 1,000 mcg Docusate Sodium (Colace Cap*) 100 mg PO BID [facility] Last Admin: 09/13/17 08:53 Dose: 100 mg Enoxaparin Sodium (Lovenox(*)) 30 mg SUBCUT Q24H [facility] Last Admin: 09/12/17 20:49 Dose: 30 mg Gabapentin (Neurontin Cap(*)) 100 mg PO TID [facility] Last Admin: 09/13/17 08:53 Dose: 100 mg Heparin Sodium (Porcine) (Heparin Flush Picc/Ml/Cvc(*)) 1 ml FLUSH 0600,1800 [facility] PRN Reason: Protocol Last Admin: 09/13/17 05:51 Dose: 1 ml Magnesium Oxide (Magox 400 Tab*) 400 mg PO BID [facility] Last Admin: 09/13/17 08:53 Dose: 400 mg Melatonin (Melatonin (Nf)) 3 mg PO BEDTIME PRN; Protocol PRN Reason: SLEEP Morphine Sulfate (Morphine Inj (Syringe)*) 2 mg IV Q2H PRN PRN Reason: PAIN - SEVERE Ondansetron HCl (Zofran Inj*) 4 mg IV Q6H PRN PRN Reason: NAUSEA Last Admin: 09/11/17 07:51 Dose: 4 mg Oxycodone HCl (Roxycodone Tab*) 5 mg PO Q6H PRN PRN Reason: PAIN Last Admin: 09/12/17 20:48 Dose: 5 mg Oxycodone/Acetaminophen (Percocet 5/325 Tab*) 1 tab PO Q4H PRN PRN Reason: PAIN - MILD Last Admin: 09/13/17 07:48 Dose: 1 tab Oxycodone/Acetaminophen (Percocet 5/325 Tab*) 2 tab PO Q4H PRN PRN Reason: PAIN - MODERATE Pantoprazole Sodium (Protonix Iv*) 40 mg IV DAILY [facility] Last Admin: 09/13/17 08:54 Dose: 40 mg Verapamil HCl (Calan Sr Tab*) 240 mg PO QPM [facility] Last Admin: 09/12/17 17:57 Dose: 240 mg Vital Signs - 8 hr 09/13/17 09/13/17 09/13/17 07:48 08:00 08:11 Temperature 99.9 F Pulse Rate 71 Respiratory 16 16 20 Rate Blood Pressure 109/57 (mmHg) O2 Sat by Pulse 97 Oximetry 09/13/17 09/13/17 09/13/17 08:53 11:26 11:52 Temperature 98.6 F Pulse Rate 63 Respiratory 16 18 16 Rate Blood Pressure 106/64 (mmHg) O2 Sat by Pulse 100 Oximetry 09/13/17 11:53 Temperature Pulse Rate Respiratory 16 Rate Blood Pressure (mmHg) O2 Sat by Pulse Oximetry Oxygen Devices in Use Now: None Appearance: 87 yo F in nAD, aAOx3 Eyes: No Scleral Icterus, PERRLA Ears/Nose/Mouth/Throat: NL Teeth, Lips, Gums, Mucous Membranes Moist Neck: NL Appearance and Movements; NL JVP, Trachea Midline Respiratory: Symmetrical Chest Expansion and Respiratory Effort, Clear to Auscultation Cardiovascular: NL Sounds; No Murmurs; No JVD, RRR Abdominal: NL Sounds; No Tenderness; No Distention Lymphatic: No Cervical Adenopathy Extremities: No Clubbing, Cyanosis, - - trace b/l ankle edema Skin: No Nodules or Sclerosis, - - post op left knee dressings not removed Neurological: Alert and Oriented x 3, NL Muscle Strength and Tone Result Diagrams: 09/13/17 05:08 09/13/17 05:08 Microbiology and Other Data: Microbiology 09/10/17 15:00 Urine Culture - Final Urine Escherichia Coli Assess/Plan/Problems-Billing Assessment: 87 yo F with h/o HTN, MDS, CLL breast ca, esophageal spasm, neuropathy presents after a mechanical fall with distal left femur fx. - Patient Problems (1) Femur fracture, left Comment: S/p ORIF of left femur by Dr. Whitaker on 09/11/17 (2) LFT elevation Comment: possible due to hypoperfusion after the fall, resolving (3) Myelodysplasia, low grade Comment: with worsening anemia s/p transfusion on 09/11/17 and 09/12/17- a toal of 3 U, cont to monitor (4) HTN (hypertension) Comment: normal SBP-cont verapamil, clonidine holding aldactone, norvasc (5) Hyponatremia Comment: chronic with mild worsening, cont to monitor (6) DVT prophylaxis Comment: lovenox Status and Disposition: inpatient. d/c to PMRU likely Friday
--- NOTE | 2017-09-13 13:07 | PN ---
Progress Note - Progress Note Date of Service: 09/13/17 SOAP: Subjective: Pt lying comfortably in bed. Pain well controlled. NWB. No complaints overnight. Vital Signs: Temp Pulse Resp BP Pulse Ox 98.6 F 63 16 106/64 100 09/13/17 11:26 09/13/17 11:26 09/13/17 11:53 09/13/17 11:26 09/13/17 11:26 Laboratory Last Values WBC 7.8 10^3/ul (3.5-10.8) 09/13/17 05:08 RBC 3.11 10^6/ul (4.0-5.4) L 09/13/17 05:08 Hgb 9.7 g/dl (12.0-16.0) L 09/13/17 05:08 Hct 28 % (35-47) L 09/13/17 05:08 MCV 92 fL (80-97) 09/13/17 05:08 MCH 31 pg (27-31) 09/13/17 05:08 MCHC 34 g/dl (31-36) 09/13/17 05:08 RDW 17 % (10.5-15) H 09/13/17 05:08 Plt Count 105 10^3/ul (150-450) L 09/13/17 05:08 MPV 7 um3 (7.4-10.4) L 09/13/17 05:08 Neut % (Auto) 65.3 % (38-83) 09/13/17 05:08 Lymph % (Auto) 18.2 % (25-47) L 09/13/17 05:08 [place] % (Auto) 15.3 % (0-7) H 09/13/17 05:08 Eos % (Auto) 0.7 % (0-6) 09/13/17 05:08 Baso % (Auto) 0.5 % (0-2) 09/13/17 05:08 Absolute Neuts (auto) 5.1 10^3/ul (1.5-7.7) 09/13/17 05:08 Absolute Lymphs (auto) 1.4 10^3/ul (1.0-4.8) 09/13/17 05:08 Absolute Monos (auto) 1.2 10^3/ul (0-0.8) H 09/13/17 05:08 Absolute Eos (auto) 0.1 10^3/ul (0-0.6) 09/13/17 05:08 Absolute Basos (auto) 0 10^3/ul (0-0.2) 09/13/17 05:08 Absolute Nucleated RBC 0 10^3/ul 09/13/17 05:08 Nucleated RBC % 0 09/13/17 05:08 Sodium 126 mmol/L (133-145) L 09/13/17 05:08 Potassium 3.8 mmol/L (3.5-5.0) 09/13/17 05:08 Chloride 97 mmol/L (101-111) L 09/13/17 05:08 Carbon Dioxide 24 mmol/L (22-32) 09/13/17 05:08 Anion Gap 5 mmol/L (2-11) 09/13/17 05:08 BUN 15 mg/dL (6-24) 09/13/17 05:08 Creatinine 0.76 mg/dL (0.51-0.95) 09/13/17 05:08 Est GFR ( Amer) 92.4 (>60) 09/13/17 05:08 Est GFR (Non-Af Amer) 71.8 (>60) 09/13/17 05:08 BUN/Creatinine Ratio 19.7 (8-20) 09/13/17 05:08 Glucose 114 mg/dL (70-100) H 09/13/17 05:08 Calcium 8.4 mg/dL (8.6-10.3) L 09/13/17 05:08 Total Bilirubin 0.90 mg/dL (0.2-1.0) 09/13/17 05:08 AST 34 U/L (13-39) 09/13/17 05:08 ALT 72 U/L (7-52) H 09/13/17 05:08 Alkaline Phosphatase 92 U/L (34-104) 09/13/17 05:08 Total Creatine Kinase 59 U/L (10-223) 09/11/17 05:26 C-Reactive Protein < 1.00 mg/L (< 5.00) 09/10/17 09:58 Total Protein 4.8 g/dL (6.4-8.9) L 09/13/17 05:08 Albumin 2.5 g/dL (3.2-5.2) L 09/13/17 05:08 Globulin 2.3 g/dL (2-4) 09/13/17 05:08 Albumin/Globulin Ratio 1.1 (1-3) 09/13/17 05:08 Urine Color Yellow 09/10/17 15:00 Urine Appearance Cloudy 09/10/17 15:00 Urine pH 8.0 (5-9) 09/10/17 15:00 Ur Specific [place] 1.010 (1.010-1.030) 09/10/17 15:00 Urine Protein Negative (Negative) 09/10/17 15:00 Urine Ketones Negative (Negative) 09/10/17 15:00 Urine Blood 1+ (Negative) A 09/10/17 15:00 Urine Nitrate Positive (Negative) A 09/10/17 15:00 Urine Bilirubin Negative (Negative) 09/10/17 15:00 Urine Urobilinogen Negative (Negative) 09/10/17 15:00 Ur Leukocyte Esterase Negative (Negative) 09/10/17 15:00 Urine WBC (Auto) Trace(0-5/hpf) (Absent) 09/10/17 15:00 Urine RBC (Auto) Trace(0-2/hpf) (Absent) 09/10/17 15:00 Urine Bacteria 1+ (Absent) A 09/10/17 15:00 Urine Glucose Negative (Negative) 09/10/17 15:00 Blood Type O Negative 09/10/17 09:58 Antibody Screen Negative 09/10/17 09:58 Crossmatch See Detail 09/10/17 09:58 Objective: Dressing changed by Dr. Whitaker, Incision C/D/I. Calves soft, nontender. Sensation intact. 2+ DP pulses Assessment: 87 yo female s/p ORIF right Femur Fx on 09/11/[address] Whitaker. POD#2 Plan: PT/OT NWB Right LE Pain control DVT prophylaxis - Lovenox UTI - Continue abx Plan for PRMU tomorrow
[2017-09-13] MEDS: Acetaminophen TAB* 325 MG PO PRN (16:12)
[2017-09-13] MEDS: Verapamil SR TAB* 240 MG PO SCH (17:52)
[2017-09-13] MEDS: Senna TAB PO SCH (22:15)
[2017-09-13] MEDS: Enoxaparin(*) 30 MG/0.3 ML SYR SUBCUT SCH (22:20)
[2017-09-14 00:34] LABS: Urine Appearance Cloudy; Urine Blood 2+ (Negative); Urine Color Yellow; Urine Ketones Negative (Negative); Urine Protein Negative (Negative); Urine Specific Gravity 1.008 (1.010-1.030); Urine Urobilinogen Negative (Negative)
[2017-09-14 06:31] LABS: ABS Basophils 0 10^3/ul (0-0.2); ABS Eosinophils 0.1 10^3/ul (0-0.6); ABS Lymphocytes 1.1 10^3/ul (1.0-4.8); ABS Monocytes 0.6 10^3/ul (0-0.8); ABS Nucleated RBC 0 10^3/ul; Eosinophil % 1.9 % (0-6); Hematocrit 27 % (35-47); Hemoglobin 9.2 g/dl (12.0-16.0); Mean Corpuscular HGB Conc 35 g/dl (31-36); Mean Corpuscular Hemoglobin 31 pg (27-31); Mean Corpuscular Volume 90 fL (80-97); Mean Platelet Volume 7 um3 (7.4-10.4); Nucleated Red Blood Cells % 0; Platelet Count 118 10^3/ul (150-450); Red Blood Count 2.95 10^6/ul (4.0-5.4); Red Cell Distribution Width 17 % (10.5-15); White Blood Count 6.8 10^3/ul (3.5-10.8)
[2017-09-14 06:58] LABS: EGFR Non-African American 83.1 (>60)
[2017-09-14] MEDS: NS 0.9% 1000 ML* 1,000 ML IV SCH ×2 (08:01→21:28)
--- NOTE | 2017-09-14 08:46 | PN ---
Subjective Date of Service: 09/14/17 Interval History: Pt had a fever of 101.4 yesterday mid day. no new symptoms. Zheng removed and urinating well. Had a BM yesterday. Toady in mild post op pain in L knee Objective Active Medications: Acetaminophen (Tylenol Tab*) 650 mg PO Q4H PRN PRN Reason: FEVER/PAIN Last Admin: 09/13/17 16:12 Dose: 325 mg Calcium Carbonate (Tums*) 750 mg PO BID [facility] Last Admin: 09/13/17 22:19 Dose: 750 mg Cephalexin HCl (Keflex Cap*) 500 mg PO BID [facility] Stop: 09/14/17 21:00 Last Admin: 09/13/17 22:16 Dose: 500 mg Cholecalciferol (Vitamin D Tab*) 3,000 units PO DAILY [facility] Last Admin: 09/13/17 08:52 Dose: 3,000 units Clonidine HCl (Rekpclum-Vvg-1 0.2 Mg Patch*) 0.2 mg TRANSDERM Th@0900 [facility] Last Admin: 09/11/17 10:20 Dose: 0.2 mg Cyanocobalamin (Vitamin B12 Tab*) 1,000 mcg PO DAILY [facility] Last Admin: 09/13/17 08:53 Dose: 1,000 mcg Docusate Sodium (Colace Cap*) 100 mg PO BID [facility] Last Admin: 09/13/17 22:15 Dose: 100 mg Enoxaparin Sodium (Lovenox(*)) 30 mg SUBCUT Q24H [facility] Last Admin: 09/13/17 22:20 Dose: 30 mg Gabapentin (Neurontin Cap(*)) 100 mg PO TID [facility] Last Admin: 09/13/17 22:17 Dose: 100 mg Heparin Sodium (Porcine) (Heparin Flush Picc/Ml/Cvc(*)) 1 ml FLUSH 0600,1800 [facility] PRN Reason: Protocol Last Admin: 09/14/17 06:07 Dose: 1 ml Sodium Chloride (Ns 0.9% 1000 Ml*) 1,000 mls @ 75 mls/hr IV PER RATE [facility] Last Admin: 09/14/17 08:01 Dose: 75 mls/hr Magnesium Hydroxide (Milk Of Magnesia Liq*) 30 ml PO Q4H PRN PRN Reason: consitpation Last Admin: 03/17/18 16:06 Dose: 30 ml Magnesium Oxide (Magox 400 Tab*) 400 mg PO BID [facility] Last Admin: 09/13/17 22:19 Dose: 400 mg Melatonin (Melatonin (Nf)) 3 mg PO BEDTIME PRN; Protocol PRN Reason: SLEEP Morphine Sulfate (Morphine Inj (Syringe)*) 2 mg IV Q2H PRN PRN Reason: PAIN - SEVERE Ondansetron HCl (Zofran Inj*) 4 mg IV Q6H PRN PRN Reason: NAUSEA Last Admin: 09/11/17 07:51 Dose: 4 mg Oxycodone HCl (Roxycodone Tab*) 5 mg PO Q6H PRN PRN Reason: PAIN Last Admin: 09/12/17 20:48 Dose: 5 mg Oxycodone/Acetaminophen (Percocet 5/325 Tab*) 1 tab PO Q4H PRN PRN Reason: PAIN - MILD Last Admin: 09/13/17 16:06 Dose: 1 tab Oxycodone/Acetaminophen (Percocet 5/325 Tab*) 2 tab PO Q4H PRN PRN Reason: PAIN - MODERATE Pantoprazole Sodium (Protonix Iv*) 40 mg IV DAILY [facility] Last Admin: 09/13/17 08:54 Dose: 40 mg Senna (Senokot Tab*) 2 tab PO BEDTIME [facility] Last Admin: 09/13/17 22:15 Dose: 2 tab Verapamil HCl (Calan Sr Tab*) 240 mg PO QPM [facility] Last Admin: 09/13/17 17:52 Dose: 240 mg Vital Signs - 8 hr 09/14/17 09/14/17 01:00 04:20 Temperature 97.5 F Pulse Rate 77 Respiratory 16 17 Rate Blood Pressure 111/49 (mmHg) O2 Sat by Pulse 96 Oximetry Oxygen Devices in Use Now: None Appearance: 87 yo F in nAD, aAOx3 Eyes: No Scleral Icterus, PERRLA Ears/Nose/Mouth/Throat: NL Teeth, Lips, Gums, Mucous Membranes Moist Neck: NL Appearance and Movements; NL JVP, Trachea Midline Respiratory: Symmetrical Chest Expansion and Respiratory Effort, Clear to Auscultation Cardiovascular: NL Sounds; No Murmurs; No JVD, RRR Abdominal: NL Sounds; No Tenderness; No Distention, No Hepatosplenomegaly Lymphatic: No Cervical Adenopathy Extremities: - - trace L ankle edema Skin: No Nodules or Sclerosis, - - left post op knee -dressings not removed. Neurological: Alert and Oriented x 3, NL Muscle Strength and Tone Result Diagrams: 09/14/17 06:10 09/14/17 06:10 Microbiology and Other Data: Microbiology 09/10/17 15:00 Urine Culture - Final Urine Escherichia Coli Assess/Plan/Problems-Billing Assessment: 87 yo F with h/o HTN, MDS, CLL breast ca, esophageal spasm, neuropathy presents after a mechanical fall with distal left femur fx. - Patient Problems (1) Femur fracture, left Comment: S/p ORIF of left femur by Dr. Whitaker on 09/11/17 (2) LFT elevation Comment: possible due to hypoperfusion after the fall, resolved (3) Myelodysplasia, low grade Comment: with worsening anemia s/p transfusion on 09/11/17 and 09/12/17- a toal of 3 U, cont to monitor (4) HTN (hypertension) Comment: normal SBP-cont verapamil, clonidine holding aldactone, norvasc (5) Hyponatremia Comment: chronic with mild worsening, cont to monitor will start IVF x 24H, suspect mild hypovolemia (6) UTI (urinary tract infection) Comment: urine cx obtained prior to Zheng showed E.coli. Treated with Keflex. Zheng d/c'd on 09/13/17, repeat UA improved. (7) DVT prophylaxis Comment: lovenox Status and Disposition: inpatient. d/c to PMRU likely Friday
[2017-09-14] MEDS: Acetaminophen TAB* 325 MG PO PRN ×3 (09:52→21:31)
[2017-09-14] MEDS: Cholecalciferol TAB* 1000 UNITS PO SCH (09:52)
[2017-09-14] MEDS: Docusate CAP* 100 MG PO SCH ×2 (09:53→20:55)
[2017-09-14] MEDS: Cyanocobalamin TAB* 500 MCG PO SCH (09:53)
[2017-09-14] MEDS: Gabapentin CAP(*) 100 MG PO SCH ×3 (09:53→21:15)
[2017-09-14] MEDS: Magnesium Oxide TAB* 400 MG PO SCH ×2 (09:53→21:16)
[2017-09-14] MEDS: Calcium Carbonate CHEW TAB* 500 MG (TUMS) PO SCH ×2 (09:54→21:17)
[2017-09-14] MEDS: Cephalexin CAP* 500 MG PO SCH ×2 (09:54→21:15)
[2017-09-14] MEDS: Pantoprazole IV* 40 MG IV SCH (09:56)
--- NOTE | 2017-09-14 11:02 | PN ---
Progress Note - Progress Note Date of Service: 09/14/17 SOAP: Subjective: Pt sitting comfortably in chair. Pain well controlled. No overnight complaints. NWB Vital Signs: Temp Pulse Resp BP Pulse Ox 98.8 F 76 18 129/59 95 09/14/17 07:31 09/14/17 07:31 09/14/17 09:53 09/14/17 07:31 09/14/17 07:31 Laboratory Last Values WBC 6.8 10^3/ul (3.5-10.8) 09/14/17 06:10 RBC 2.95 10^6/ul (4.0-5.4) L 09/14/17 06:10 Hgb 9.2 g/dl (12.0-16.0) L 09/14/17 06:10 Hct 27 % (35-47) L 09/14/17 06:10 MCV 90 fL (80-97) 09/14/17 06:10 MCH 31 pg (27-31) 09/14/17 06:10 MCHC 35 g/dl (31-36) 09/14/17 06:10 RDW 17 % (10.5-15) H 09/14/17 06:10 Plt Count 118 10^3/ul (150-450) L 09/14/17 06:10 MPV 7 um3 (7.4-10.4) L 09/14/17 06:10 Neut % (Auto) 72.6 % (38-83) 09/14/17 06:10 Lymph % (Auto) 16.0 % (25-47) L 09/14/17 06:10 [place] % (Auto) 9.2 % (0-7) H 09/14/17 06:10 Eos % (Auto) 1.9 % (0-6) 09/14/17 06:10 Baso % (Auto) 0.3 % (0-2) 09/14/17 06:10 Absolute Neuts (auto) 5.0 10^3/ul (1.5-7.7) 09/14/17 06:10 Absolute Lymphs (auto) 1.1 10^3/ul (1.0-4.8) 09/14/17 06:10 Absolute Monos (auto) 0.6 10^3/ul (0-0.8) 09/14/17 06:10 Absolute Eos (auto) 0.1 10^3/ul (0-0.6) 09/14/17 06:10 Absolute Basos (auto) 0 10^3/ul (0-0.2) 09/14/17 06:10 Absolute Nucleated RBC 0 10^3/ul 09/14/17 06:10 Nucleated RBC % 0 09/14/17 06:10 Sodium 126 mmol/L (133-145) L 09/14/17 06:10 Potassium 3.9 mmol/L (3.5-5.0) 09/14/17 06:10 Chloride 95 mmol/L (101-111) L 09/14/17 06:10 Carbon Dioxide 29 mmol/L (22-32) 09/14/17 06:10 Anion Gap 2 mmol/L (2-11) 09/14/17 06:10 BUN 13 mg/dL (6-24) 09/14/17 06:10 Creatinine 0.67 mg/dL (0.51-0.95) 09/14/17 06:10 Est GFR ( Amer) 106.8 (>60) 09/14/17 06:10 Est GFR (Non-Af Amer) 83.1 (>60) 09/14/17 06:10 BUN/Creatinine Ratio 19.4 (8-20) 09/14/17 06:10 Glucose 108 mg/dL (70-100) H 09/14/17 06:10 Calcium 8.6 mg/dL (8.6-10.3) 09/14/17 06:10 Total Bilirubin 0.90 mg/dL (0.2-1.0) 09/13/17 05:08 AST 34 U/L (13-39) 09/13/17 05:08 ALT 72 U/L (7-52) H 09/13/17 05:08 Alkaline Phosphatase 92 U/L (34-104) 09/13/17 05:08 Total Creatine Kinase 59 U/L (10-223) 09/11/17 05:26 C-Reactive Protein < 1.00 mg/L (< 5.00) 09/10/17 09:58 Total Protein 4.8 g/dL (6.4-8.9) L 09/13/17 05:08 Albumin 2.5 g/dL (3.2-5.2) L 09/13/17 05:08 Globulin 2.3 g/dL (2-4) 09/13/17 05:08 Albumin/Globulin Ratio 1.1 (1-3) 09/13/17 05:08 Urine Color Yellow 09/14/17 00:10 Urine Appearance Cloudy 09/14/17 00:10 Urine pH 6.0 (5-9) 09/14/17 00:10 Ur Specific [place] 1.008 (1.010-1.030) L 09/14/17 00:10 Urine Protein Negative (Negative) 09/14/17 00:10 Urine Ketones Negative (Negative) 09/14/17 00:10 Urine Blood 2+ (Negative) A 09/14/17 00:10 Urine Nitrate Negative (Negative) 09/14/17 00:10 Urine Bilirubin Negative (Negative) 09/14/17 00:10 Urine Urobilinogen Negative (Negative) 09/14/17 00:10 Ur Leukocyte Esterase Negative (Negative) 09/14/17 00:10 Urine WBC (Auto) Trace(0-5/hpf) (Absent) 09/14/17 00:10 Urine RBC (Auto) Trace(0-2/hpf) (Absent) 09/14/17 00:10 Ur Squamous Epith Cells Present (Absent) A 09/14/17 00:10 Urine Bacteria Absent (Absent) 09/14/17 00:10 Urine Yeast Present (Absent) A 09/14/17 00:10 Urine Glucose Negative (Negative) 09/14/17 00:10 Blood Type O Negative 09/10/17 09:58 Antibody Screen Negative 09/10/17 09:58 Crossmatch See Detail 09/10/17 09:58 Objective: Dressing C/D/I. Knee immobilizer intact. Calves soft, nontender. No edema. neurovascularly intact distally Assessment: 87 yo female s/p ORIF right femur fracture on 09/14/[address] Whitaker POD #3 Plan: OOB, PT/OT NWB RLE Pain control DVT prophylaxis - Lovenox D/C PRMU likely tomorrow
[2017-09-14] MEDS: Verapamil SR TAB* 240 MG PO SCH (17:43)
[2017-09-14] MEDS: Senna TAB PO SCH (20:55)
[2017-09-14] MEDS: Enoxaparin(*) 30 MG/0.3 ML SYR SUBCUT SCH (21:18)
[2017-09-15 05:13] LABS: ABS Basophils 0 10^3/ul (0-0.2); ABS Eosinophils 0.2 10^3/ul (0-0.6); ABS Lymphocytes 1.2 10^3/ul (1.0-4.8); ABS Monocytes 0.5 10^3/ul (0-0.8); ABS Neutrophils 3.4 10^3/ul (1.5-7.7); ABS Nucleated RBC 0 10^3/ul; Eosinophil % 3.1 % (0-6); Hematocrit 26 % (35-47); Hemoglobin 8.7 g/dl (12.0-16.0); Lymphocyte % 22.9 % (25-47); Mean Corpuscular HGB Conc 34 g/dl (31-36); Mean Corpuscular Hemoglobin 31 pg (27-31); Mean Corpuscular Volume 92 fL (80-97); Mean Platelet Volume 7 um3 (7.4-10.4); Nucleated Red Blood Cells % 0; Platelet Count 130 10^3/ul (150-450); Red Blood Count 2.79 10^6/ul (4.0-5.4); Red Cell Distribution Width 17 % (10.5-15); White Blood Count 5.3 10^3/ul (3.5-10.8)
[2017-09-15 05:27] LABS: EGFR Non-African American 80.3 (>60)
[2017-09-15] MEDS: Docusate CAP* 100 MG PO SCH (08:14)
[2017-09-15] MEDS: Cholecalciferol TAB* 1000 UNITS PO SCH (08:22)
[2017-09-15] MEDS: Magnesium Oxide TAB* 400 MG PO SCH (08:22)
[2017-09-15] MEDS: Acetaminophen TAB* 325 MG PO PRN (08:23)
[2017-09-15] MEDS: Gabapentin CAP(*) 100 MG PO SCH (08:23)
[2017-09-15] MEDS: Cyanocobalamin TAB* 500 MCG PO SCH (08:23)
[2017-09-15] MEDS: Pantoprazole IV* 40 MG IV SCH (08:24)
[2017-09-15] MEDS: Calcium Carbonate CHEW TAB* 500 MG (TUMS) PO SCH (08:24)
--- NOTE | 2017-09-15 09:02 | PN ---
Subjective Date of Service: 09/15/17 Family History: Unchanged from Admission Social History: Unchanged from Admission Past Medical History: Unchanged from Admission Objective Active Medications: Acetaminophen (Tylenol Tab*) 650 mg PO Q4H PRN PRN Reason: FEVER/PAIN Last Admin: 09/15/17 08:23 Dose: 650 mg Calcium Carbonate (Tums*) 750 mg PO BID [facility] Last Admin: 09/15/17 08:24 Dose: 750 mg Cholecalciferol (Vitamin D Tab*) 3,000 units PO DAILY [facility] Last Admin: 09/15/17 08:22 Dose: 3,000 units Clonidine HCl (Rvrgcmmg-Iqe-0 0.2 Mg Patch*) 0.2 mg TRANSDERM Th@0900 [facility] Last Admin: 09/11/17 10:20 Dose: 0.2 mg Cyanocobalamin (Vitamin B12 Tab*) 1,000 mcg PO DAILY [facility] Last Admin: 09/15/17 08:23 Dose: 1,000 mcg Docusate Sodium (Colace Cap*) 100 mg PO BID [facility] Last Admin: 09/15/17 08:14 Dose: Not Given Enoxaparin Sodium (Lovenox(*)) 30 mg SUBCUT Q24H [facility] Last Admin: 09/14/17 21:18 Dose: 30 mg Gabapentin (Neurontin Cap(*)) 100 mg PO TID [facility] Last Admin: 09/15/17 08:23 Dose: 100 mg Heparin Sodium (Porcine) (Heparin Flush Picc/Ml/Cvc(*)) 1 ml FLUSH 0600,1800 [facility] PRN Reason: Protocol Last Admin: 09/15/17 05:08 Dose: Not Given Magnesium Hydroxide (Milk Of Magnesia Liq*) 30 ml PO Q4H PRN PRN Reason: consitpation Last Admin: 09/13/17 16:06 Dose: 30 ml Magnesium Oxide (Magox 400 Tab*) 400 mg PO BID [facility] Last Admin: 09/15/17 08:22 Dose: 400 mg Melatonin (Melatonin (Nf)) 3 mg PO BEDTIME PRN; Protocol PRN Reason: SLEEP Morphine Sulfate (Morphine Inj (Syringe)*) 2 mg IV Q2H PRN PRN Reason: PAIN - SEVERE Ondansetron HCl (Zofran Inj*) 4 mg IV Q6H PRN PRN Reason: NAUSEA Last Admin: 09/11/17 07:51 Dose: 4 mg Oxycodone HCl (Roxycodone Tab*) 5 mg PO Q6H PRN PRN Reason: PAIN Last Admin: 09/12/17 20:48 Dose: 5 mg Oxycodone/Acetaminophen (Percocet 5/325 Tab*) 1 tab PO Q4H PRN PRN Reason: PAIN - MILD Last Admin: 09/13/17 16:06 Dose: 1 tab Oxycodone/Acetaminophen (Percocet 5/325 Tab*) 2 tab PO Q4H PRN PRN Reason: PAIN - MODERATE Pantoprazole Sodium (Protonix Iv*) 40 mg IV DAILY [facility] Last Admin: 09/15/17 08:24 Dose: 40 mg Senna (Senokot Tab*) 2 tab PO BEDTIME [facility] Last Admin: 09/14/17 20:55 Dose: Not Given Verapamil HCl (Calan Sr Tab*) 240 mg PO QPM [facility] Last Admin: 09/14/17 17:43 Dose: 240 mg Vital Signs - 8 hr 09/15/17 09/15/17 03:50 08:23 Temperature 98.3 F Pulse Rate 63 Respiratory 16 16 Rate Blood Pressure 132/49 (mmHg) O2 Sat by Pulse 93 Oximetry Oxygen Devices in Use Now: None Result Diagrams: 09/15/17 05:00 09/15/17 05:56 Microbiology and Other Data: Microbiology 09/10/17 15:00 Urine Culture - Final Urine Escherichia Coli Assess/Plan/Problems-Billing Assessment: 87 yo F with h/o HTN, MDS, CLL breast ca, esophageal spasm, neuropathy presents after a mechanical fall with distal left femur fx. Status and Disposition: inpatient. d/c to [facility] likely Friday
--- NOTE | 2017-09-15 09:09 | PN ---
Progress Note - Progress Note Date of Service: 09/15/17 SOAP: Subjective: 87 y/o female s/p ORIF of R femur fracture yb DR. Whitaker 09/12/2017. VSS, afebrile overnight. Objective: General- Well appearing, NAD, AO, istting in bed comfortably. MSK- L LE- dressing removed, i c/d/i, no erythema, mild ecchymosis. + DF/ PF. redressed Vital Signs Temp 98.3 F 09/15/17 03:50 Pulse 63 09/15/17 03:50 Resp 16 09/15/17 08:23 BP 132/49 09/15/17 03:50 Pulse Ox 93 09/15/17 03:50 Intake & Output 09/14/17 09/15/17 09/15/17 18:59 06:59 18:59 Intake Total 1180 1680 Balance 1180 1680 Intake: IV Fluids 980 NS (0.9%) 980 Oral 1180 700 Other: Estimated Void Large Medium Large Date of Last Bowel 09/14/17 09/15/17 Movement # Bowel Movements 1 1 Estimated Stool Amount Large Medium # Voids 1 1 2 Assessment: Stable 87 y/o female s/p ORIF of R femur fracture by DR. Whitaker 09/12/2017. Plan: - DVT prophylaxis- lovenox - Continue PT/ OT - Follow up with Dr. Whitaker within ~ 7 days - H&H - stable s/p 2 units 09/12. Continue to monitor, hemoccult neg. - post-op IV ABX - completed, - UTI- completed kelfex, repeat UA neg - D/C to [facility] today Acetaminophen (Tylenol Tab*) 650 mg PO Q4H PRN PRN Reason: FEVER/PAIN Last Admin: 09/15/17 08:23 Dose: 650 mg Calcium Carbonate (Tums*) 750 mg PO BID [facility] Last Admin: 09/15/17 08:24 Dose: 750 mg Cholecalciferol (Vitamin D Tab*) 3,000 units PO DAILY [facility] Last Admin: 09/15/17 08:22 Dose: 3,000 units Clonidine HCl (Woatjdpk-Cos-5 0.2 Mg Patch*) 0.2 mg TRANSDERM Th@0900 [facility] Last Admin: 09/11/17 10:20 Dose: 0.2 mg Cyanocobalamin (Vitamin B12 Tab*) 1,000 mcg PO DAILY [facility] Last Admin: 09/15/17 08:23 Dose: 1,000 mcg Docusate Sodium (Colace Cap*) 100 mg PO BID [facility] Last Admin: 09/15/17 08:14 Dose: Not Given Enoxaparin Sodium (Lovenox(*)) 30 mg SUBCUT Q24H [facility] Last Admin: 09/14/17 21:18 Dose: 30 mg Gabapentin (Neurontin Cap(*)) 100 mg PO TID [facility] Last Admin: 09/15/17 08:23 Dose: 100 mg Heparin Sodium (Porcine) (Heparin Flush Picc/Ml/Cvc(*)) 1 ml FLUSH 0600,1800 [facility] PRN Reason: Protocol Last Admin: 09/15/17 05:08 Dose: Not Given Magnesium Hydroxide (Milk Of Magnesia Liq*) 30 ml PO Q4H PRN PRN Reason: consitpation Last Admin: 09/13/17 16:06 Dose: 30 ml Magnesium Oxide (Magox 400 Tab*) 400 mg PO BID [facility] Last Admin: 09/15/17 08:22 Dose: 400 mg Melatonin (Melatonin (Nf)) 3 mg PO BEDTIME PRN; Protocol PRN Reason: SLEEP Morphine Sulfate (Morphine Inj (Syringe)*) 2 mg IV Q2H PRN PRN Reason: PAIN - SEVERE Ondansetron HCl (Zofran Inj*) 4 mg IV Q6H PRN PRN Reason: NAUSEA Last Admin: 09/11/17 07:51 Dose: 4 mg Oxycodone HCl (Roxycodone Tab*) 5 mg PO Q6H PRN PRN Reason: PAIN Last Admin: 09/12/17 20:48 Dose: 5 mg Oxycodone/Acetaminophen (Percocet 5/325 Tab*) 1 tab PO Q4H PRN PRN Reason: PAIN - MILD Last Admin: 09/13/17 16:06 Dose: 1 tab Oxycodone/Acetaminophen (Percocet 5/325 Tab*) 2 tab PO Q4H PRN PRN Reason: PAIN - MODERATE Pantoprazole Sodium (Protonix Iv*) 40 mg IV DAILY [facility] Last Admin: 09/15/17 08:24 Dose: 40 mg Senna (Senokot Tab*) 2 tab PO BEDTIME [facility] Last Admin: 09/14/17 20:55 Dose: Not Given Verapamil HCl (Calan Sr Tab*) 240 mg PO QPM [facility] Last Admin: 09/14/17 17:43 Dose: 240 mg
[2017-09-15 11:36] VITALS: BP 168/62
--- NOTE | 2017-09-16 01:19 | DS ---
CC: Dr. Julita Riley * DISCHARGE SUMMARY: DATE OF ADMISSION: 09/10/17 DATE OF DISCHARGE: 09/15/17 PRIMARY CARE PROVIDER: Dr. Julita Riley. PROVIDER: Trey Worley NP ATTENDING PHYSICIAN: Dr. Juanito Marks.* (DICTATED BY TREY WORLEY NP) CONSULTING PHYSICIAN: Dr. Kathi Whitaker, Orthopedic Surgery. PRIMARY DISCHARGE DIAGNOSES: 1. Left femur fracture, status post ORIF. 2. E. coli urinary tract infection, status post full completion of the treatment and with negative repeat UA. 3. Acute on chronic hyponatremia. SECONDARY DISCHARGE DIAGNOSES: 1. Hypertension. 2. History of esophageal spasm and gastroesophageal reflux disease. 3. History of breast cancer. 4. History of lymphoma. 5. History of myelodysplastic syndrome. CURRENT MEDICATIONS: 1. Acetaminophen 650 mg q.4 hours p.r.n. fever or pain. 2. Calcium carbonate 750 mg b.i.d. 3. Cholecalciferol 3000 units daily. 4. Clonidine 0.2 mg transdermal patch every . 5. Cyanocobalamin 1000 mcg daily. 6. Docusate sodium 100 mg b.i.d. 7. Lovenox 30 mg subcu q.24 hours. 8. Gabapentin 100 mg t.i.d. 9. Milk of magnesia 30 mL q.4 hours p.r.n. 10. Magnesium oxide 400 mg b.i.d. 11. Melatonin 3 mg at bedtime p.r.n. sleep. 12. Morphine sulfate 2 mg IV q.2 hours p.r.n. pain. 13. Ondansetron 4 mg IV q.6 hours p.r.n. nausea. 14. Oxycodone 5 mg q.6 hours p.r.n. pain. 15. Percocet 1 to 2 tabs q.4 hours p.r.n. pain. 16. Pantoprazole 40 mg IV daily. 17. Senna 2 tabs at bedtime. 18. Verapamil 240 mg q. p.m. Home medications that are not included above: 1. Colchicine 0.6 mg t.i.d. p.r.n. 2. Mylanta 10 mL 4 times a day p.r.n. 3. Omeprazole 40 mg b.i.d. 4. Spironolactone 25 mg daily. Please note that the patient also completed a course of Keflex for UTI. HOSPITAL COURSE OF STAY: For full details, please refer to the H and P provided by nurse practitioner, Russ, on 09/10/17. In summary, Ms. Ventura is an 87-year-old female who had sustained a fall at home as she was trying get out of the bed. She was brought into the hospital for evaluation and was noted to have a comminuted displaced distal left femur fracture. She was seen by Orthopedic Surgery and underwent an ORIF of the left distal femur fracture on 09/11/17. During the course of her stay, she was noted to have some mildly worsening hyponatremia, which she does have at baseline, and this was felt to be secondary to hypovolemia. She was given IV fluids with improvement of her sodium on the BMP. She was also noted to have a UTI, having had a positive urinalysis on admission for nitrites, which came back positive for E. coli. Ms. Ventura also had some worsening anemia over the course of the stay, which was thought to be secondary to recent surgery and her history of MDS. She is status post transfusion and has been stable with her H and H. This should continued to be monitored while in the RU and in the outpatient setting. Ms. Ventura was seen today. She reports she is doing well. She has no acute complaints. She reports that previously she had some diarrhea secondary to antibiotics, but this has improved. She is sitting up in chair and feels better. She has already been seen by OT this morning and plans are in place for her to be transferred to the [facility]. DISCHARGE PHYSICAL EXAMINATION: Vital Signs: Temperature 98.3; pulse rate 63; respiratory rate 16; blood pressure 132/49; O2 saturation 93% on room air. HEENT: Head is atraumatic, normocephalic. Pupils are equal, round and reactive to light. Sclerae anicteric. Oral mucosa is moist. Neck: Supple. No JVD noted. Lungs: Clear to auscultation bilaterally. Cardiac: S1, S2 heart sounds, regular rate and rhythm. No murmurs, rubs, or gallops. Abdomen: Soft, nontender, nondistended. Bowel sounds are normoactive. Lower extremities: There is a clean, dry and intact dressing to the left lower extremity. Distal pulses are intact and there is brisk capillary refill. Neuro: She is alert and oriented x3. Affect is appropriate. No focal deficits noted. Speech is clear. DIET: Regular diet. ACTIVITY: As tolerated. Weightbearing as directed by Orthopedics. FOLLOW UP NEEDS: Ms. Ventura should have continued monitoring of her H and H to ensure she does not have worsening anemia. She is to follow up with Orthopedics in 7 days. Continue on Lovenox for DVT prophylaxis until directed to discontinue by Orthopedic Surgery. CONDITION: Stable. DISPOSITION: To [facility]. TIME SPENT: Time spent on this discharge was approximately 35 minutes. Again, this is only a brief summary of the patient's hospital course of stay. For full details, please refer to the full medical record. If you have any further questions or need further assistance, please feel free to contact me at [phone]. TREY WORLEY NP [id number]/CPS #: [id number] FIORDALIZA
--- NOTE | 2017-09-17 08:36 | RAD ---
INDICATION: ORIF distal LEFT femur COMPARISON: September 10, 2017 radiographs. TECHNIQUE: 40.8 seconds fluoroscopy. FINDINGS: Spot images document placement of a cortical plate and multiple screws across the distal metaphyseal femur fracture with resulting anatomic alignment. IMPRESSION: Procedural fluoroscopy. CPT II Codes: 6045F
== END 2017-09-15 12:08 | DRG 481 ==
LOC: ED 08:32 → SSU 12:11
PROVIDERS: ADMIT Internal Medicine; ATTEND Internal Medicine
PROC: 30233N1 Transfusion of Nonautologous Red Blood Cells into Peripheral Vein, Percutaneous Approach (ICD-10-PCS; 2017-09-11)
PROC: 0QSC04Z Reposition Left Lower Femur with Internal Fixation Device, Open Approach (ICD-10-PCS; principal; 2017-09-11 16:15)
PROC: 05H633Z Insertion of Infusion Device into Left Subclavian Vein, Percutaneous Approach (ICD-10-PCS; 2017-09-12)
DX: S72.462A Displaced supracondylar fracture with intracondylar extension of lower end of left femur, initial encounter for closed fracture (principal); C94.6 Myelodysplastic disease, not elsewhere classified; G62.89 Other specified polyneuropathies; N39.0 Urinary tract infection, site not specified; E87.1 Hypo-osmolality and hyponatremia; D64.9 Anemia, unspecified; B96.20 Unspecified Escherichia coli [E. coli] as the cause of diseases classified elsewhere; M85.862 Other specified disorders of bone density and structure, left lower leg; W06.XXXA Fall from bed, initial encounter; M25.562 Pain in left knee; I10 Essential (primary) hypertension; K58.9 Irritable bowel syndrome, unspecified; E86.1 Hypovolemia; K22.4 Dyskinesia of esophagus; Z85.3 Personal history of malignant neoplasm of breast; Y92.003 Bedroom of unspecified non-institutional (private) residence as the place of occurrence of the external cause; Z85.72 Personal history of non-Hodgkin lymphomas; Z79.1 Long term (current) use of non-steroidal anti-inflammatories (NSAID); Z79.899 Other long term (current) drug therapy; Z88.2 Allergy status to sulfonamides; Z88.7 Allergy status to serum and vaccine; Z88.8 Allergy status to other drugs, medicaments and biological substances; Z91.041 Radiographic dye allergy status; Z82.49 Family history of ischemic heart disease and other diseases of the circulatory system
CPT/HCPCS: 36415; 76001; 80048; 80053; 81003; 81015; 82272; 82550; 85025; 85652; 86140; 86850; 86900; 86901; 86922; 87077; 87086; 87186; 93005; 99282; A9270-GY; G8978-GP-CJ; G8978-GP-CL; G8979-GP-CH; G8979-GP-CJ; G8987-GO-CL; G8988-GO-CI; J0690; J0744; J1650; J2250; J2270; J2405; J2704; J3010; P9016; P9040

== ENCOUNTER 2018-03-02 06:10 | Emergency (ER) | payer MEDICARE, BC ==
--- OUTSIDE RECORDS SUMMARY | 2018-03-02 06:20 | XMS REPORT ---
:1930 External Reference #:[id number] Author Organization [employer] Address [address] [facility] [place] [address] [place] [address] Phone [phone] Care Team Providers Name Role Phone Julita Riley MD Primary Care Physician Unavailable Payers Type Date Identification Numbers Payment Provider Subscriber Medicare Primary Effective: Policy Number: Medicare Eloise Ortega 1994 [id number] PayID: [id number] [address] [place] [address] Medigap Part B Effective: 2012 Policy Number: [facility] Eloise Ortega [id number] PayID: [id number] [address] [place] [address] Problems Date Description Provider Status Onset: 07/28/2017 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 Active Onset: 07/28/2017 Abnormal gait Mic Burgos M.D. Active Onset: 12/04/2017 Polyneuropathy Mic Burgos M.D. Active Onset: 10/17/2017 Oth fx lower end of l femur, subs for Ivan Yen MD Active clos fx w routn heal Social History Type Date Description Comments ETOH Use Denies alcohol use Smoking Patient has never smoked Allergies, Adverse Reactions, Alerts Date Description Reaction Status Severity Comments 06/10/2016 Diovan active 06/10/2016 Novocain active 06/10/2016 Sulfa Antibiotics active 06/10/2016 Tetanus Immune Globulin active 06/10/2016 Vasotec active 06/10/2016 Contrast Dye active 06/10/2016 Sodium Pentathol active 07/28/2017 Hydrochlorothiazide active 07/28/2017 Losartan active 07/28/2017 Cardura active 07/28/2017 Mevacor active 07/28/2017 Altace active Medications Medication Date Status Form Strength Qnty SIG Indications Ordering Provider Gabapentin 12/04 Active Capsules 300mg 180ca 2 G62.9 ps capsules Rosendo Burgos by mouth three times a day Acetaminophen Active Tablets 500mg 2 tablets Unknown /0000 every 6 hours as needed for pain Amlodipine Active Tablets 5mg 1 by Unknown Besylate /0000 mouth every day Clonidine HCL Active Patches 0.2mg/24H As Unknown /0000 Weekly R directed Cyanocobalamin Active Solution 1000mg Unknown /0000 Magnesium Active Tablets 400mg 1 by Unknown /0000 mouth two times a day Melatonin ER Active Tablets ER 3mg 1 tab by Unknown /0000 mouth every day every night Prilosec Active Capsules DR 40mg 1 by Unknown /0000 mouth twice a day Spironolactone Active Tablets 25mg 1 by Unknown /0000 mouth every day Verapamil HCL Active Caps ER 240mg 1 by Unknown ER /0000 24HR mouth every day Vitamin D Active Tablets 2000Unit by mouth Unknown /0000 everyday Vitamin B-12 Active Tablets 1000mcg 1 by Unknown /0000 mouth every day Mylanta Active Suspension 200-200-2 every 4 Unknown /0000 0mg/5ML hours as needed Aspir-[address] 81mg 1 by Unknown /0000 mouth every day Vitamin C Active Tablets 500mg 1 by Unknown /0000 mouth every day Cranberry Active 4200 As Unknown /0000 directed Probiotic Active Capsules 1 by Unknown /0000 mouth every day Neurontin 07/28 Hx Capsules 100mg 90cap take 1 G62.9 s capsule 3 Rosendo Burgos - times a Calcium Hx Tablets 800mg two daily Unknown /0000 - 12/03 Colchicine Hx Capsules 0.6mg 1 by Unknown /0000 mouth - every day 07/27 Dicyclomine HCL Hx Tablets 10mg take 1 Unknown /0000 tablet by - mouth two 12/03 times day Tamoxifen Hx Tablets 20mg once a Unknown Citrate /0000 day - 07/27 Estrace Hx Cream 0.1mg/GM use one Unknown applicato - rful two 07/27 weekly Levsin Hx Tablets 0.125mg one tab Unknown every 4 - hours, as 07/25 Fexofenadine Hx Tablets 180mg once Unknown HCL daily - 07/27 Vital Signs Date Vital Result Comment 02/04/2018 Weight 120.00 lb Heart Rate 62 /min BP Systolic Sitting 100 mmHg BP Diastolic Sitting 60 mmHg Respiratory Rate 16 /min Pain Level 0 02/02/2018 Weight 120.00 lb Wheelchair Heart Rate 58 /min BP Systolic 126 mmHg BP Diastolic 60 mmHg Respiratory Rate 16 /min 12/05/2017 Heart Rate 64 /min BP Systolic Sitting 144 mmHg BP Diastolic Sitting 58 mmHg Respiratory Rate 20 /min Body Temperature 97.7 F 12/04/2017 Height 60 inches 5'0" Weight 112.00 lb before surgery Heart Rate 68 /min BP Systolic 130 mmHg BP Diastolic 60 mmHg Respiratory Rate 16 /min BMI (Body Mass Index) 21.9 kg/m2 11/03/2017 Height 60 inches 5'0" Weight 112.00 lb Heart Rate 52 /min BP Systolic 118 mmHg BP Diastolic 66 mmHg Body Temperature 97.6 F BMI (Body Mass Index) 21.9 kg/m2 10/17/2017 Height 60 inches 5'0" Weight 112.00 lb Heart Rate 60 /min BP Systolic 136 mmHg BP Diastolic 70 mmHg BMI (Body Mass Index) 21.9 kg/m2 10/06/2017 Height 60 inches 5'0" Weight 112.00 lb Heart Rate 62 /min BP Systolic 140 mmHg BP Diastolic 60 mmHg Respiratory Rate 17 /min Body Temperature 97.7 F Pain Level 5 BMI (Body Mass Index) 21.9 kg/m2 07/28/2017 Height 60 inches 5'0" Weight 112.00 lb Heart Rate 60 /min BP Systolic 118 mmHg BP Diastolic 40 mmHg Respiratory Rate 16 /min BMI (Body Mass Index) 21.9 kg/m2 06/26/2016 Heart Rate 78 /min Respiratory Rate 18 /min Body Temperature 99.2 F 06/11/2016 Height 61 inches 5'1" Weight 126.00 lb Heart Rate 72 /min BP Systolic 142 mmHg BP Diastolic 76 mmHg Respiratory Rate 16 /min Body Temperature 97.8 F BMI (Body Mass Index) 23.8 kg/m2 Results Test Date Test Result H/L Range Note Laboratory test finding 09/08/2017 Erythrocyte Sed Rate 21 mm/Hr 0-40 C Reactive Protein < 1.00 mg/L < 5.00 1 Laboratory test finding 07/28/2017 Erythrocyte Sed Rate 66 mm/Hr High 0- 40 Protein Electrophoresis 07/28/2017 Total Protein(Pep) 6.9 g/dL 6.3 - 7.9 Albumin 3.4 g/dL 3.4-4.7 Alpha-1 Globulin 0.4 g/dL 0.1-0.3 Alpha-2 Globulin 1.1 g/dL 0.6-1.0 Beta Globulin 0.8 g/dL 0.7-1.2 Gamma Globulin 1.2 g/dL 0.6-1.6 Albumin/Globulin Ratio 0.96 Impression See Comment 2 Immunofixation See Comment 3 Anca Panel For Vasculitis 07/28/2017 Myeloperoxidase AB < 0.2 U 4 Proteinase 3 AB < 0.2 U 5 Laboratory test finding 06/20/2016 Surgical Pathology SEE RESULT BELOW 6 1 Acute inflammation: >10.00 2 Small abnormality in gamma fraction. See Immunofixation. Test Performed by: [address] [address] 3 Small monoclonal IgG lambda within the gamma fraction. Suggest repeat testing in 6-12 months if clinically indicated. Test Performed by: [address] [address] 4 REFERENCE VALUE <0.4 (Negative) 5 REFERENCE VALUE <0.4 (Negative) Test Performed by: [address] [id number] 6 SEE RESULT BELOW Name: ELOISE ORTEGA : [address]: Chas Pena MD Acct: [id number] Unit: [id number] AGE: 86 Location: SDS Re06/20/16 SEX: F Status: REG SDC SPEC: [id number] FOUZIA: 06/20/16-[address] [facility] [address]: Chas Pena MD REQ: [id number] RECD: 06/20/16 STATUS: HUONG MCCALLUM DR: Valentín Newman MD _ ORDERED: ESTRO REC ST, LEVEL IV, LEVEL V, PRAS-ADD Dr. Cr reviewed this case in intradepartmental consultation and agrees with the diagnosis. Addendum Signed (signature on file) Crystal Paniagua MD 1410 Immunohistochemical stains, with appropriately reacting controls, were performed with the following results: ER strongly positive, nearly 100% of DCIS cells AK moderately to strongly positive, approximately 60% of DCIS cells Addendum Signed (signature on file)Luan Crystal Paniagua MD 1014 FINAL DIAGNOSIS 1. Breast, left, lumpectomy: -- Ductal carcinoma in situ (DCIS), with: Size: 27 mm (measured on the histologic slide. Extent and distribution: Present throughout specimen. Architectural pattern: Clinging and cribriform types. Nuclear grade: Low. Necrosis: Absent. Microcalcifications: Present. Microinvasion: Not identified. ER/AK by immunohistochemistry with appropriate controls: ER: Pending; results will be reported in an addendum. AK: Pending; results will be reported in an addendum. Margins: All margins are negative by greater than 1 cm. Other findings: Discrete focus of fat necrosis in lateral aspect of specimen. pTNM histopathologic stage: pTis. 2. Skin, left breast, excision: -- Skin and subcutaneous tissue with no significant pathologic abnormalities. CONTINUED ON NEXT PAGE * ML=Testing performed at Main Lab DEPARTMENT OF PATHOLOGY, [address] [place] [address] Erick Cr M.D. Director [facility] # [id number] RUN DATE: 06/25/16 [facility] LAB LIVE PAGE 2 Patient: ELOISE ORTEGA [id number] (Continued) FINAL DIAGNOSIS (Continued) PRE-OPERATIVE DIAGNOSIS Unspecified lump in breast, usual markings. GROSS DESCRIPTION 1. The specimen is received fresh labeled, Left Breast Excision, and consists of a 9.7 x 8.8 x 3.0 cm yellow-pink ovoid portion of fibrofatty soft tissue with three attached sutures, which are designated as follows: long-lateral, short-superior and medium-medial. The specimen is partially surfaced by a 3.6 x 0.6 cm cooper-pink skin ellipse on the central anterior surface. There is a needle localization wire entering the specimen through the medial skin ellipse and extending towards the deep margin. There is a 1.3 x 1.2 x 0.6 cm cooper-pink rubbery focally nodular ill-defined area associated with the localization wire, 1.3 cm from the deep margin and 1.5 cm from the superior anterior margin. Additionally, there is a 2.5 x 1.7 x 1.5 cm dusky yellow gelatinous area within the lateral specimen, which abuts the anterior margin. The remaining cut surface consists predominantly of yellow lobulated adipose tissue with a small amount of interspersed cooper-pink focally nodular fibrous tissue and rare focal hemorrhage. The specimen is inked as follows: superior anterior-blue, inferior anterior-green and deep-black, serially sectioned from lateral to medial and customer assistance representative sections are submitted in cassettes A through K to include area associated with localization wire in cassettes D and E and gelatinous area in cassettes A through C. 2. The specimen is received in formalin labeled, Additional Skin-Left Breast, and consists of a 12.4 by up to 2.1 cm cooper-white wrinkled skin ellipse excised to a maximum depth of 1.0 cm. The specimen is inked and customer assistance representative sections are submitted in two cassettes. Signed (signature on file) Crystal Paniagua MD 1206 END OF REPORT * ML=Testing performed at Main Lab DEPARTMENT OF PATHOLOGY, [address] [place] [address] Erick Cr M.D. Director [facility] # [id number] Procedures Date CPT Code Description Status 09/11/2017 63149 EKG, Interpretation Only Completed 09/11/2017 19288 FX Femur Supra/Transcondylar Open TX Intercondylar Ext Completed W/Wo Fix 09/11/2017 30038 FX Femur Supra/Transcondylar Open TX Intercondylar Ext Completed W/Wo Fix 09/10/2017 51943 EKG, Interpretation Only Completed 07/08/2017 08103 Treadmill Interp/Report Only Completed 07/08/2017 79619 Stress Test Supervsn W/Out I/R Completed 07/05/2017 97443 EKG, Interpretation Only Completed 06/20/2016 61970 Excise Breast Lesion Single,Identified By Pre-Op Completed Radiolog Marker 06/20/2016 Mammogram Completed 05/15/2016 Mammogram Completed Encounters Type Date Location Provider CPT E/M Dx Office Visit 12/04/2017 [facility] Mic Burgos M.D. 96560 G62.9 10:00a [facility] M54.32 R26.81 Office Visit 09/15/2017 9:31a [facility] Alisha Washington, [address] S72.492A [facility]oc[facility] I10 Z85.3 Z87.19 Office Visit 09/14/2017 9:30a [facility] Angela Sandoval 81299 S72.492A [facility]10 Z87.19 Z85.3 Office Visit 09/13/2017 9:29a [facility] Angela Sandoval 45695 S72.492A Assoc[facility] Hospitalists Rosendo I10 Z87.19 Z85.3 Office Visit 09/12/2017 9:28a [facility], [address] S72.492A Ass, Hospitalists Rosendo I10 Z87.19 Z85.3 Office Visit 09/11/2017 9:28a [facility], [address] S72.492A Assoc, Hospitalists Rosendo I10 Z87.19 Z85.3 Office Visit 09/11/2017 2:18p [facility] Kathi Whitaker, 29648 S72.462A Robbin Robbins Office Visit 09/10/2017 9:26a [facility] 16064 S72.492A Ass, Hospitalists FADY Solano I10 Z85.3 Z87.19 Office Visit 07/28/2017 8:30a [facility] Mic Burgos, 77188 G62.9 [facility] Rosendo M54.32 R26.81 Z92.21 Office Visit 06/11/2016 1:15p [facility] Chas Pena, [address] N63 [facility] Rosendo Office Visit 07/24/2013 2:35p [facility], Raffaele Shane, [address] 009.1 Hospitalists N.P. 595.9 401.9 V10.3 Office Visit 07/22/2013 2:33p [facility], Grant Shoaib, [address]37 009.1 Hospitalists N.P. 595.9 401.9 V10.3 Plan of Care Future Appointment(s):05/13/2018 8:00 am - Kathi Whitaker M.D. at [facility]06/04/2018 9:00 am - Mic Burgos M.D. at [facility]02/04/2018 - Kathi Whitaker M.D.S72.492D Oth fx lower end of l femur, subs for clos fx w routn healNew Therapy:Physical TherapyFollow up:Follow up:
[2018-03-02 07:10] LABS: ABS Basophils 0 10^3/ul (0-0.2); ABS Eosinophils 0.1 10^3/ul (0-0.6); ABS Lymphocytes 1.5 10^3/ul (1.0-4.8); ABS Monocytes 0.9 10^3/ul (0-0.8); ABS Neutrophils 6.8 10^3/ul (1.5-7.7); ABS Nucleated RBC 0 10^3/ul; Eosinophil % 1.6 % (0-6); Hematocrit 28 % (35-47); Hemoglobin 9.3 g/dl (12.0-16.0); Lymphocyte % 16.1 % (25-47); Mean Corpuscular HGB Conc 33 g/dl (31-36); Mean Corpuscular Hemoglobin 32 pg (27-31); Mean Corpuscular Volume 97 fL (80-97); Mean Platelet Volume 6.3 um3 (7.4-10.4); Nucleated Red Blood Cells % 0; Platelet Count 259 10^3/ul (150-450); Red Blood Count 2.88 10^6/ul (4.00-5.40); Red Cell Distribution Width 17 % (10.5-15); White Blood Count 9.4 10^3/ul (3.5-10.8)
[2018-03-02 07:26] LABS: EGFR Non-African American 36.3 (>60)
[2018-03-02 07:30] LABS: INR 1.03 (0.77-1.02)
[2018-03-02] MEDS ORDERED: Ciprofloxacin 400MG IVPREMIX(* 400 MG/200 ML BAG IVPB ONE (07:38)
[2018-03-02] MEDS ORDERED: NS 0.9% 1000 ML*IV.FLUID IV SCH (08:00)
[2018-03-02] MEDS ORDERED: NS 0.9% 1000 ML* 1,000 ML IV ONE (08:21)
--- NOTE | 2018-03-02 08:50 | RAD ---
Indication: Sepsis. Single frontal view of the chest performed at 0646 hours was reviewed. Comparison is made with previous exam dated July 04, 2017. No mediastinal shift is noted. Heart is of normal size and configuration. Lung sears appear clear. No alveolar consolidation is noted. IMPRESSION: NO ACTIVE CARDIOPULMONARY DISEASE IS NOTED.
[2018-03-02 10:49] VITALS: BP 118/71
--- NOTE | 2018-03-02 16:43 | ED ---
HPI Febrile Illness - HPI Summary HPI Summary: Patient is an 88-year-old female who is fairly otherwise healthy for her age presenting to the ED with daughter who she lives with with a febrile illness and generalized weakness over the past 2-3 days. She denies any cough, shortness of breath, chest pain, urinary symptoms, back pain or abdominal pain. History of UTIs in the past which has caused fevers, however patient denies any UTI symptoms however states she normally does not have UTI symptoms at her baseline. Patient appears well her vital signs are stable on arrival. She is noted to be bradycardic, however states this is her baseline. - History of Current Complaint Chief Complaint: EDFever Time Seen by Provider: 03/02/18 06:32 Hx Obtained From: Patient Onset/Duration: Started Hours Ago Timing: Constant Initial Severity: Mild Current Severity: Mild Pain Intensity: 0 Pain Scale Used: 0-10 Numeric Aggravating Factors: Nothing Alleviating Factors: Nothing Associated Signs and Symptoms: Weakness - Risk Factors Pseudomonas Risk Factors: Negative Serious Bacterial Infection Risk Factors: Zheng Catheter - previous - 1 mos ago - Additional Pertinent History Primary Care Physician: DENNIS - Allergy/Home Medications Allergies/Adverse Reactions: Allergies Allergy/AdvReac Type Severity Reaction Status Date / Time enalaprilat [From Vasotec] Allergy Muscle Ache Verified 03/02/18 06:29 Iodinated Contrast- Oral and Allergy Hives Verified 03/02/18 06:29 IV Dye Sulfa (Sulfonamide Allergy Weakness Verified 03/02/18 06:29 Antibiotics) Tetanus Vaccines and Toxoid Allergy Swelling Verified 03/02/18 06:29 thiopental Allergy Unknown Verified 03/02/18 06:29 Reaction Details valsartan [From Diovan] Allergy abnormal Verified 03/02/18 06:29 labs sodium pentathol Allergy Mild weakness Uncoded 03/02/18 06:29 iv dye Allergy Hives Uncoded 03/02/18 06:29 Home Medications: Home Medications Ascorbic Acid [Vitamin C] 500 mg PO DAILY 03/02/18 [History Confirmed 03/02/18] Aspirin 81 mg PO DAILY 03/02/18 [History Confirmed 03/02/18] Cranberry Conc/C/Bacill Coag [Cranberry Tablet] 1 each PO DAILY 03/02/18 [ History Confirmed 03/02/18] Cyanocobalamin TAB* [Vitamin B12 TAB*] 1,000 mg PO DAILY 03/02/18 [History Confirmed 03/02/18] Gabapentin CAP(*) [Neurontin 100 mg CAP(*)] 600 mg PO TID 03/02/18 [History Confirmed 03/02/18] L.acidoph,Paracasei, B.lactis [Probiotic] 1 each PO DAILY 03/02/18 [History Confirmed 03/02/18] Mirabegron (NF) [Myrbetriq (NF)] 25 mg PO DAILY 03/02/18 [History Confirmed 09/14] PMH/Surg Hx/FS Hx/Imm Hx Previously Healthy: Yes Endocrine/Hematology History: Reports: Hx Blood Transfusions - 45 UNITS PRBC & 16 UNITS PLATELETS TOTAL HX, Hx Bone Marrow Disease - MYELODYSPLASIA, Hx Anemia Cardiovascular History: Reports: Hx Angina, Hx Coronary Artery Disease, Hx Hypercholesterolemia, Hx Hypertension Denies: Hx Congestive Heart Failure, Hx Myocardial Infarction, Hx Pacemaker/ ICD, Other Cardiovascular Problems/Disorders Respiratory History: Reports: Hx Asthma - NOT SINCE ADULTHOOD Denies: Hx Chronic Obstructive Pulmonary Disease (COPD), Other Respiratory Problems/Disorders GI History: Reports: Hx Gall Bladder Disease - HAD JULIETTE, Hx Gastroesophageal Reflux Disease - ON MEDICATION FOR, Hx Irritable Bowel, Other GI Disorders - COLITIS AT TIMES Denies: Hx Hiatal Hernia History: Denies: Other Problems/Disorders Musculoskeletal History: Reports: Hx Arthritis - HANDS, BACK, Hx Gout - X1, Hx Tendonitis - LEFT ANKLE, Other Musculoskeletal History - JAW PAIN-ARTHRITIS PER PATIENT Denies: Hx Osteoporosis Sensory History: Reports: Hx Cataracts, Hx Contacts or Glasses, Hx Vision Problem, Hx Hearing Aid, Hx Hearing Problem Denies: Hx Glaucoma Opthamlomology History: Reports: Hx Cataracts, Hx Contacts or Glasses, Hx Vision Problem Denies: Hx Glaucoma Neurological History: Reports: Hx Nerve Disease - NEUROPATHY Denies: Other Neuro Impairments/Disorders Psychiatric History: Denies: Hx Panic Disorder - Cancer History Cancer Type, 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) Hx Chemotherapy: Yes - [id number] Hx Radiation Therapy: No Hx Palliative Cancer Treatment: Yes - LUMPECTOMY - Surgical History Surgery Procedure, Year, and Place: LEFT LEG SHATTERED IN PIECES FEW WEEKS AGO NOT DUE TO INJURY Hx Anesthesia Reactions: Yes - NAUSEA AND VOMITING - Immunization History Date of Tetanus Vaccine: allergic Date of Influenza Vaccine: 2017 Immunizations Up to Date: Unable to Obtain/Confirm Infectious Disease History: No Infectious Disease History: Reports: Hx Shingles Denies: Hx Clostridium Difficile, Hx Hepatitis, Hx Human Immunodeficiency Virus (HIV), Hx of Known/Suspected MRSA, Hx Tuberculosis, Hx Known/Suspected VRE , Hx Known/Suspected VRSA, History Other Infectious Disease, Traveled Outside the [place] in Last 30 Days - Family History Known Family History: Positive: None, Hypertension - Social History Occupation: Unemployed, Retired Lives: With Family Alcohol Use: None Hx Substance Use: No Substance Use Type: Reports: None Hx Tobacco Use: No Smoking Status (MU): Never Smoked Tobacco Review of Systems Positive: Fever. Negative: Chills, Fatigue, Skin Diaphoresis Negative: Photophobia, Blurred Vision Negative: Palpitations Negative: Shortness Of Breath, Cough Negative: Abdominal Pain, Vomiting, Diarrhea, Nausea Genitourinary: Negative Positive: no symptoms reported, see HPI Negative: Arthralgia, Myalgia Skin: Negative Positive: Weakness All Other Systems Reviewed And Are Negative: Yes Physical Exam Triage Information Reviewed: Yes Vital Signs On Initial Exam: Initial Vitals Temp Pulse Resp BP Pulse Ox 101.5 F 60 20 114/53 95 03/02/18 06:21 03/02/18 06:21 03/02/18 06:21 03/02/18 06:21 03/02/18 06:21 Vital Signs Reviewed: Yes Appearance: Positive: Well-Appearing, No Pain Distress, Well-Nourished, Thin Skin: Positive: Warm, Skin Color Reflects Adequate Perfusion Head/Face: Positive: Normal Head/Face Inspection Eyes: Positive: EOMI, [place], Conjunctiva Clear Neck: Positive: Supple, No Lymphadenopathy Respiratory/Lung Sounds: Positive: Clear to Auscultation, Breath Sounds Present Cardiovascular: Positive: RRR, Pulses are Symmetrical in both Upper and Lower Extremities Musculoskeletal: Positive: Normal, Strength/ROM Intact Neurological: Positive: Sensory/Motor Intact, Alert, Oriented to Person Place, Time, Speech Normal Psychiatric: Positive: Normal, Affect/Mood Appropriate AVPU Assessment: Alert Diagnostics - Vital Signs Vital Signs Temp Pulse Resp BP Pulse Ox 03/02/18 10:35 118/71 03/02/18 10:31 97.6 F 44 16 120/59 97 03/02/18 10:04 45 116/52 97 03/02/18 10:00 44 99 03/02/18 09:34 48 117/60 97 03/02/18 09:04 47 121/52 97 03/02/18 09:00 48 99 03/02/18 08:34 46 122/53 99 03/02/18 08:04 47 114/51 92 03/02/18 08:00 49 92 03/02/18 07:34 50 119/54 93 03/02/18 07:05 51 111/52 94 03/02/18 06:21 101.5 F 60 20 114/53 95 - Laboratory Lab Results: Lab Results 03/02/18 03/02/18 03/02/18 Range/Units 06:59 06:59 06:59 WBC 9.4 (3.5-10.8) 10^3/ul RBC 2.88 L (4.00-5.40) 10^6/ul Hgb 9.3 L (12.0-16.0) g/dl Hct 28 L (35-47) % MCV 97 (80-97) fL MCH 32 H (27-31) pg MCHC 33 (31-36) g/dl RDW 17 H (10.5-15) % Plt Count 259 (150-450) 10^3/ul MPV 6.3 L (7.4-10.4) um3 Neut % (Auto) 72.3 (38-83) % Lymph % (Auto) 16.1 L (25-47) % Donley % (Auto) 9.7 H (0-7) % Eos % (Auto) 1.6 (0-6) % Baso % (Auto) 0.3 (0-2) % Absolute Neuts (auto) 6.8 (1.5-7.7) 10^3/ul Absolute Lymphs (auto) 1.5 (1.0-4.8) 10^3/ul Absolute Monos (auto) 0.9 H (0-0.8) 10^3/ul Absolute Eos (auto) 0.1 (0-0.6) 10^3/ul Absolute Basos (auto) 0 (0-0.2) 10^3/ul Absolute Nucleated RBC 0 10^3/ul Nucleated RBC % 0 INR (Anticoag Therapy) 1.03 H (0.77-1.02) APTT 33.3 (26.0-36.3) seconds Sodium 129 L (135-145) mmol/L Potassium 4.4 (3.5-5.0) mmol/L Chloride 95 L (101-111) mmol/L Carbon Dioxide 25 (22-32) mmol/L Anion Gap 9 (2-11) mmol/L BUN 32 H (6-24) mg/dL Creatinine 1.37 H (0.51-0.95) mg/dL Est GFR ( Amer) 43.9 (>60) Est GFR (Non-Af Amer) 36.3 (>60) BUN/Creatinine Ratio 23.4 H (8-20) Glucose 123 H (70-100) mg/dL Lactic Acid (0.5-2.0) mmol/L Calcium 9.4 (8.6-10.3) mg/dL Total Bilirubin 0.40 (0.2-1.0) mg/dL AST 14 (13-39) U/L ALT 14 (7-52) U/L Alkaline Phosphatase 151 H (34-104) U/L Troponin I 0.01 (<0.04) ng/mL C-Reactive Protein 13.21 H (<8.01) mg/L B-Natriuretic Peptide ( - 100) pg/mL Total Protein 6.5 (6.4-8.9) g/dL Albumin 3.9 (3.2-5.2) g/dL Globulin 2.6 (2-4) g/dL Albumin/Globulin Ratio 1.5 (1-3) 03/02/18 03/02/18 Range/Units 06:59 06:59 WBC (3.5-10.8) 10^3/ul RBC (4.00-5.40) 10^6/ul Hgb (12.0-16.0) g/dl Hct (35-47) % MCV (80-97) fL MCH (27-31) pg MCHC (31-36) g/dl RDW (10.5-15) % Plt Count (150-450) 10^3/ul MPV (7.4-10.4) um3 Neut % (Auto) (38-83) % Lymph % (Auto) (25-47) % Donley % (Auto) (0-7) % Eos % (Auto) (0-6) % Baso % (Auto) (0-2) % Absolute Neuts (auto) (1.5-7.7) 10^3/ul Absolute Lymphs (auto) (1.0-4.8) 10^3/ul Absolute Monos (auto) (0-0.8) 10^3/ul Absolute Eos (auto) (0-0.6) 10^3/ul Absolute Basos (auto) (0-0.2) 10^3/ul Absolute Nucleated RBC 10^3/ul Nucleated RBC % INR (Anticoag Therapy) (0.77-1.02) APTT (26.0-36.3) seconds Sodium (135-145) mmol/L Potassium (3.5-5.0) mmol/L Chloride (101-111) mmol/L Carbon Dioxide (22-32) mmol/L Anion Gap (2-11) mmol/L BUN (6-24) mg/dL Creatinine (0.51-0.95) mg/dL Est GFR ( Amer) (>60) Est GFR (Non-Af Amer) (>60) BUN/Creatinine Ratio (8-20) Glucose (70-100) mg/dL Lactic Acid 1.6 (0.5-2.0) mmol/L Calcium (8.6-10.3) mg/dL Total Bilirubin (0.2-1.0) mg/dL AST (13-39) U/L ALT (7-52) U/L Alkaline Phosphatase (34-104) U/L Troponin I (<0.04) ng/mL C-Reactive Protein (<8.01) mg/L B-Natriuretic Peptide 296 H ( - 100) pg/mL Total Protein (6.4-8.9) g/dL Albumin (3.2-5.2) g/dL Globulin (2-4) g/dL Albumin/Globulin Ratio (1-3) Result Diagrams: 03/02/18 06:59 03/02/18 06:59 Lab Statement: Any lab studies that have been ordered have been reviewed, and results considered in the medical decision making process. Course/Dx - Course Course Of Treatment: During the course of treatment, the patient's evaluated for febrile illness. Labs obtained which show a normal white count. Patient tends to have a moderate hyponatremia, however this is improved upon last visit. Lungs CTA. RRR with a systolic murmur heard at the apex. Fluids given. Ciprofloxacin given as patient has been febrile. Patient is unable to give us a clean urine sample. Stool sample is given and is watery diarrhea, however patient states this is her normal she has IBS. Patient states she is feeling well and is requesting discharge. While we were unable to obtain a urine sample, patient will be treated as a UTI as she has had these in the past with a recent Zheng catheter as of about 1 month ago. She is treated with ciprofloxacin in the ED and will be sent home with such. I have offered admission and patient declines at this time stating her daughter is currently living with her and they agree to try outpatient antibiotics and agree if symptoms worsen, they will return to the ED immediately. She is afebrile on discharge and continues to feel improved after fluids given. - Febrile Illness Differential Diagnoses: Fever of Unknown Origin, Other: - UTI, diarrhea, c. diff - Diagnoses Provider Diagnoses: Fever Discharge - Sign-Out/Discharge Documenting (check all that apply): Patient Departure - Discharge Plan Condition: Critical Disposition: HOME Prescriptions: Ciprofloxacin TAB* [Cipro 500 MG TAB*] 500 mg PO BID #14 tab Patient Education Materials: Urinary Tract Infection in Older Adults (ED) Referrals: Julita Riley MD [Primary Care Provider] - Additional Instructions: Please follow up with PCP Ciprofloxacin twice daily 7 days Tylenol and ibuprofen for any fevers Return to the ED if any symptoms worsen - Billing Disposition and Condition Condition: CRITICAL Disposition: Home
== END 2018-03-02 10:31 | disposition home or self-care (01) ==
LOC: ED 06:10
DX: R50.9 Fever, unspecified (principal); R00.1 Bradycardia, unspecified; Z88.2 Allergy status to sulfonamides; Z88.7 Allergy status to serum and vaccine; Z88.8 Allergy status to other drugs, medicaments and biological substances; Z91.041 Radiographic dye allergy status
CPT/HCPCS: 36415; 71045; 80053; 83605; 83880; 84484; 85025; 85610; 85730; 86140; 87040; 87045; 87046; 87077; 87493; 87899; 96361; 96365; 99284; J0744

== ENCOUNTER 2018-05-17 11:15 | Emergency (ER) | payer MEDICARE, BC ==
--- OUTSIDE RECORDS SUMMARY | 2018-05-17 12:27 | XMS REPORT ---
:1930 External Reference #:[id number] Author Organization [employer] Address [address] [place] [address] Phone [phone] Care Team Providers Name Role Phone Julita Riley MD Primary Care Physician Unavailable Payers Type Date Identification Numbers Payment Provider Subscriber Medicare Primary Policy Number: [id number] Medicare Eloise Ortega PayID: [id number] [address] [place] [address] Medigap Part B Effective: 1993 Policy Number: Medicare Eloise Ortega [id number] Expires: 2018 PayID: [id number] [address] [place] [address] Medigap Part B Effective: 2012 Policy Number: [facility] Eloise Ortega [id number] PayID: [id number] [address] [place] [address] Problems Date Description Provider Status Onset: 07/28/2017 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 Active Onset: 07/28/2017 Abnormal gait Mic Burgos M.D. Active Onset: 10/17/2017 Oth fx lower end of l femur, subs for Ivan Yen MD Active clos fx w routn heal Onset: 12/04/2017 Polyneuropathy Mic Burgos M.D. Active Social History Type Date Description Comments ETOH [...] HCL Hx Tablets 10mg take 1 Unknown tablet by - mouth two 12/03 day Tamoxifen Hx Tablets 20mg once a Unknown Citrate /0000 day - 07/27 Estrace Hx Cream 0.1mg/GM use one Unknown applicato - rful two 07/27 weekly Levsin Hx Tablets 0.125mg one tab Unknown every 4 - hours, as 07/25 Fexofenadine Hx Tablets 180mg once Unknown HCL /0000 daily - 07/27 Vital Signs Date Vital Result Comment 05/04/2018 Height 60 inches 5'0" Weight 120.00 lb Heart Rate 56 /min BP Systolic 102 mmHg BP Diastolic 58 mmHg BMI (Body Mass Index) 23.4 kg/m2 04/24/2018 Height 60 inches 5'0" Weight 120.00 lb BP Systolic 104 mmHg BP Diastolic 62 mmHg Respiratory Rate 15 /min Pain Level 9 BMI (Body Mass Index) 23.4 kg/m2 02/04/2018 Weight 120.00 lb Heart Rate 62 [...] gamma fraction. See Immunofixation. Test Performed by: [address] [address] 3 Small monoclonal IgG lambda within the gamma fraction. Suggest repeat testing in 6-12 months if clinically indicated. Test Performed by: [address] [address] 4 REFERENCE VALUE <0.4 (Negative) 5 REFERENCE VALUE <0.4 (Negative) Test Performed by: [place] [address] [place] [address] 6 SEE RESULT BELOW Name: ELOISE ORTEGA : [address]: Chas Pena MD Acct: [id number] Unit: [id number] AGE: 86 Location: [facility] Re06/20/16 SEX: F Status: REG SDC SPEC: [id number] FOUZIA: 06/20/16-10[address] [facility] [address]: Chas Pena MD REQ: [id number] RECD: 06/20/16 STATUS: HUONG MCCALLUM DR: Valentín Newman MD _ ORDERED: ESTRO REC ST, LEVEL IV, LEVEL V, PRAS-ADD Dr. Cr reviewed this case in intradepartmental consultation and agrees with the diagnosis. Addendum Signed (signature on file) Crystal Paniagua MD 1410 Immunohistochemical stains, with appropriately reacting controls, were performed with the following results: ER strongly positive, nearly 100% of DCIS cells MT moderately to strongly positive, approximately 60% of DCIS cells Addendum Signed (signature on file) Crystal Paniagua MD 1014 FINAL DIAGNOSIS 1. Breast, left, lumpectomy: -- Ductal carcinoma in situ (DCIS), with: Size: 27 mm (measured on the histologic slide. Extent and distribution: Present throughout specimen. Architectural pattern: Clinging and cribriform types. Nuclear grade: Low. Necrosis: Absent. Microcalcifications: Present. Microinvasion: Not identified. ER/MT by immunohistochemistry with appropriate controls: ER: Pending; results will be reported in an addendum. MT: Pending; results will be reported in an addendum. Margins: All margins are negative by greater than 1 cm. Other findings: Discrete focus of fat necrosis in lateral aspect of specimen. pTNM histopathologic stage: pTis. 2. Skin, left breast, excision: -- Skin and subcutaneous tissue with no significant pathologic abnormalities. CONTINUED ON NEXT PAGE * ML=Testing performed at Main Lab DEPARTMENT OF PATHOLOGY, [address] [place] [address] Erick Cr M.D. Director [facility] # [id number] RUN DATE: 06/25/16 [facility] LAB LIVE PAGE 2 Patient: ELOISE ORTEGA [id number] (Continued) FINAL DIAGNOSIS (Continued) PRE-OPERATIVE DIAGNOSIS Unspecified [...] serially sectioned from lateral to medial and wireless sales representative sections are submitted in cassettes A [...] 1.0 cm. The specimen is inked and wireless sales representative sections are submitted in two cassettes. Signed (signature on file) Crystal Paniagua MD 1206 END OF REPORT * ML=Testing performed at Main Lab DEPARTMENT OF PATHOLOGY, [address] [place] [address] Erick Cr M.D. Director [facility] # [id number] Procedures Date CPT Code Description Status 09/11/2017 95222 EKG, Interpretation Only Completed 09/11/2017 92757 FX Femur Supra/Transcondylar Open TX Intercondylar Ext Completed W/Wo Fix 09/11/2017 05017 FX Femur Supra/Transcondylar Open TX Intercondylar Ext Completed W/Wo Fix 09/10/2017 12760 EKG, Interpretation Only Completed 07/08/2017 29858 Treadmill Interp/Report Only Completed 07/08/2017 30794 Stress Test Supervsn W/Out I/R Completed 07/05/2017 42400 EKG, Interpretation Only Completed 06/20/2016 21373 Excise Breast Lesion Single,Identified By Pre-Op Completed Radiolog Marker 06/20/2016 Mammogram Completed 05/15/2016 Mammogram Completed Encounters Type Date Location Provider CPT E/M Dx Office Visit 04/24/2018 [facility] Kathi Whitaker M.D. 46755 S72.492D 8:45a Of [place] M25.552 S32.040A Office Visit 02/04/2018 8:00a [facility] Kathi Whitaker M.D. 34959 S72.492D Of [place] Office Visit 02/02/2018 8:00a [facility] Teogageyi Burgos, 14399 G62.9 Services Of Leni Robbins R26.81 Office Visit 12/04/2017 10:00a [facility] Mic Burgos, 52877 G62.9 Services Of Fan Mail Clerk Rosendo M54.32 R26.81 Office Visit 09/15/2017 9:31a [facility], [address] S72.492A Assoc,pc Hospitalists ASSISTANT EDITOR I10 Z85.3 Z87.19 Office Visit 09/14[facility]2017 [facility] 52449 S72.492A [facility] M.D. I10 Z87.19 Z85.3 Office Visit 09/13/2017 [facility] [address] S72.492A [facility]oc[facility]pc Hospitalists M.D. I10 Z87.19 Z85.3 Office Visit 09/12/2017 [facility]28a [facility] [address] S72.492A Assoc,pc Hospitalists M.D. I10 Z87.19 Z85.3 Office Visit 09/11/2017 9:28a [facility], [address]408 S72.492A Assoc, Hospitalists M.D. I10 Z87.19 Z85.3 Office Visit 09/11/2017 2:18p [facility] Kathi Whitaker, 61405 S72.462A Robbin Robbins Office Visit 09/10/2017 9:26a [facility] [address] S72.492A Assoc,pc Hospitalists FADY Solano I10 Z85.3 Z87.19 Office Visit 07/28/2017 8:30a [facility] Yasiryi Aubrey, [address]390 G62.9 Services Of Fan Mail Clerk Rosendo M54.32 R26.81 Z92.21 Office Visit 06/11/2016 1:15p [facility] Chas Pena, [address]353 N63 Leni Robbins Office Visit 07/24/2013 2:35p [facility], Raffaele Jorgeald, 97849 009.1 Hospitalists N.P. 595.9 401.9 V10.3 Office Visit 07/22/2013 2:33p [facility], Grant Cramer, [address]8685 009.1 Hospitalists N.P. 595.9 401.9 V10.3 Plan of Care Future Appointment(s):06/03/2018 9:00 am - Kathi Whitaker M.D. at [facility] [place].06/04/2018 9:00 am - Mic Burgos M.D. at [facility]05/04/2018 - Kathi Whitaker M.D.M25.552 Pain in left hipFollow up:Follow up: 1 nmudxC58.62 Trochanteric bursitis, left hipS32.000A Wedge compression fracture of unsp lumbar vertebra, initM16.12 Unilateral primary osteoarthritis, left hip
--- OUTSIDE RECORDS SUMMARY | 2018-05-17 12:27 | XMS REPORT | Continuity of Care Document ---
:1930 External Reference #:[id number] Author Name Saji Lopez [facility] Robert Providers Name Role Phone Julita Riley MD Care Team Information Physician Allergist Immunologist Unavailable Julita Riley MD Primary Care Physician Unavailable Payers Type Date Identification Numbers Payment Provider Subscriber Policy Number: [id number] Medicare [place] Emilie Ventura PayID: [id number] [address] [place] [address] Policy Number: [id number] [employer] Emilie Ventura PayID: [id number] [address] [place] [address] Advance Directives Description No Information Available Problems Date Description Provider Status Onset: 09/08/2013 Presbyopia Jero Moyer M.D. Active Onset: 09/08/2013 Lens Replaced By Other Means Jero Moyer M.D. Active Onset: 09/08/2013 Ocular hypertension Jero Moyer M.D. Active Family History Date Family Member(s) Problem(s) Comments General Blindness General Cataract General Glaucoma General High BP General Cancer General Grandparent, Sister, Brother, Uncle Father Noncontributory Mother Heart Disease Mother High BP Social History Type Date Description Comments Sex Unknown ETOH Use Denies alcohol use Tobacco Use Start: Unknown Patient has never smoked Smoking Status Reviewed: 04/23/18 Patient has never smoked Allergies, Adverse Reactions, Alerts Date Description Reaction Status Severity Comments 09/08/2013 Novocain Active 09/08/2013 Sodium Penethol Active 09/08/2013 Sulfa Antibiotics Active 09/08/2013 Tetanus Active 09/08/2013 Diovan Active 09/08/2013 Vasotec Active 12/27/2015 Iodine Active Medications Medication Date Status Form Strength Qnty SIG Indications Ordering Provider Verapamil HCL ER 00// Active Caps ER 100mg Unknown 0000 24HR Calcium + D3 00// Active Tablets Unknown 0000 Amlodipine 00/ Active Tablets 5mg Unknown Besylate 0000 Vitamin B 12 / Active Unknown 0000 Potassium / Active Tablets Unknown 0000 Advair Diskus / Active Aerosol 250-50mcg/ Unknown 0000 Dose Prilosec / Active Capsules 10mg Unknown [address] DR Tylenol Extra / Active Tablets 500mg 2 tablets Unknown Strength 0000 po tid Tums / Active Chewtabs 500mg Unknown 0000 Melatonin CR / Active Tablets ER 3mg Unknown 0000 Spironolactone / Active Tablets 25mg Unknown 0000 Clonidine HCL / Active Patches 0.2mg/24HR Unknown 0000 Weekly Immunizations Description No Information Available Vital Signs Date Vital Result Comment 03/19/2017 2:16pm Intraocular Pressure Right Eye 17 mmHg Intraocular Pressure Left Eye 17 mmHg 12/27/2015 3:19pm Intraocular Pressure Right Eye 20 mmHg Intraocular Pressure Left Eye 20 mmHg 11/11/2014 2:51pm Intraocular Pressure Right Eye 20 mmHg Intraocular Pressure Left Eye 19 mmHg 09/08/2013 9:28am Intraocular Pressure Right Eye 21 mmHg Intraocular Pressure Left Eye 21 mmHg Results Description No Information Available Procedures Date Code Description Status 03/19/2017 80265 Refraction Completed 03/19/2017 59494 Eye Exam Est Intermediate Completed 12/27/2015 97105 Eye Exam Est Intermediate Completed 11/11/2014 65726 Eye Exam Est Comprehensive Completed 09/08/2013 04469 Eye Exam Est Comprehensive Completed 07/26/2011 00472 Eye Exam Est Comprehensive Completed 05/30/2010 20444 Eye Exam Est Intermediate Completed 04/17/2010 72055 Remove Secondary Cataract, Laser (Yag) Completed 03/30/2010 51280 Remove Secondary Cataract, Laser (Yag) Completed 02/16/2010 76980 Fundus Photography W/Interpretation & Report Completed 02/16/2010 81878 Ophthalmoscopy Initial Completed 02/16/2010 36932 Eye Exam New Comprehensive Completed 02/16/2010 61971 Corneal Pachymetry, Unilateral/Bilateral Completed Encounters Description No Information Available Plan of Treatment 03/19/2017 - Jero Moyer M.D.Z96.1 Presence of intraocular lensH40.053 Ocular hypertension, bilateralFollow up:1 yr
--- OUTSIDE RECORDS SUMMARY | 2018-05-17 12:27 | XMS REPORT | Continuity of Care Document ---
:1930 External Reference #:[id number] Author Name Jero oMyer M.D. Address [address] [place] [address] Care Team Providers Name Role Phone Julita Riley MD Care Team Information Wood Caulker Unavailable Julita Riley MD Primary Care Physician Unavailable Payers Type Date Identification Numbers Payment Provider Subscriber Policy Number: [id number] [employer] [place] Ventura PayID: [id number] [address] [place] [address] Policy Number: [id number] [employer] Emilie Ventura PayID: [id number] [address] [place] [address] Advance Directives Description No Information Available Problems [...] SIG Indications Ordering Provider Verapamil HCL ER 00/00/ Active Caps ER 100mg Unknown 0000 24HR Calcium + D3 00/ Active Tablets Unknown 0000 Amlodipine 00/ Active [...] Available Vital Signs Date Vital Result Comment 04/23/2018 8:14am Intraocular Pressure Right Eye 20 mmHg Intraocular Pressure Left Eye 19 mmHg 03/19/2017 2:16pm Intraocular Pressure Right Eye 17 [...] Information Available Procedures Date Code Description Status 04/23/2018 38999 Ophthalmoscopy Subsequent Completed 04/23/2018 64219 Refraction Completed 04/23/2018 72771 Eye Exam Est Comprehensive Completed 03/19/2017 23654 Refraction Completed 03/19/2017 87477 Eye Exam Est Intermediate Completed 12/27/2015 11411 Eye Exam Est Intermediate Completed 11/11/2014 03109 Eye Exam Est Comprehensive Completed 09/08/2013 29233 Eye Exam Est Comprehensive Completed 07/26/2011 47842 Eye Exam Est Comprehensive Completed 05/30/2010 91108 Eye Exam Est Intermediate Completed 04/17/2010 24472 Remove Secondary Cataract, Laser (Yag) Completed 03/30/2010 73133 Remove Secondary Cataract, Laser (Yag) Completed 02/16/2010 77247 Fundus Photography W/Interpretation & Report Completed 02/16/2010 31806 Ophthalmoscopy Initial Completed 02/16/2010 69000 Eye Exam New Comprehensive Completed 02/16/2010 03997 Corneal Pachymetry, Unilateral/Bilateral Completed Encounters Description No Information Available Plan of Treatment 04/23/2018 - Jero Moyer M.D.H40.053 Ocular hypertension, [id number] Presence of intraocular lensFollow up:1 yr
[2018-05-17 12:40] VITALS: BP 130/46
--- NOTE | 2018-05-17 13:00 | UC ---
Back Pain HPI - HPI Summary HPI Summary: fever 100.2 this morning, sever back pain (had a compression fracture 2 months ago) has had 40-50 cc of urine output today which is significantly decreased from her usual (she has an indwelling catheter) - History of Current Complaint Chief Complaint: UCGeneralIllness Stated Complaint: FEVER Time Seen by Provider: 05/17/18 12:49 Hx Obtained From: Patient ?: No Onset/Duration: Sudden Onset, Lasting Days - 2, Still Present Timing: Constant Pain Intensity: 3 Pain Scale Used: 0-10 Numeric Back Pain: Is Discrete @ - low back Character: Aching Aggravating Factor(s): Nothing Alleviating Factor(s): Other - did take a percocet with some relief Associated Signs And Symptoms: Positive: Negative - Allergies/Home Medications Allergies/Adverse Reactions: Allergies Allergy/AdvReac Type Severity Reaction Status Date / Time Iodinated Contrast- Oral and Allergy Hives Verified 05/17/18 12:55 IV Dye Sulfa (Sulfonamide Allergy Weakness Verified 05/17/18 12:55 Antibiotics) Tetanus Vaccines and Toxoid Allergy Swelling Verified 05/17/18 12:55 thiopental Allergy Unknown Verified 05/17/18 12:55 Reaction Details valsartan [From Diovan] Allergy abnormal Verified 05/17/18 12:55 labs enalaprilat [From Vasotec] AdvReac Coughing Verified 05/17/18 12:55 iv dye Allergy Hives Uncoded 05/17/18 12:55 sodium pentathol AdvReac Mild weakness Uncoded 05/17/18 12:55 Home Medications: Home Medications Cholecalciferol TAB* [Vitamin D TAB*] 2,000 units PO DAILY 05/17/18 [History Confirmed 05/17/18] oxyCODONE/Acetam5/325MG PREPAK [Percocet 5/325 TAB*] 1 tab PRN 05/17/18 [History ] PMH/Surg Hx/FS Hx/Imm Hx Previously Healthy: Yes - compression fracture Cardiovascular History: Hypertension GI/ History: Gastroesophageal Reflux, Other Other GI/ History: indwelling urinary catheter - Surgical History Surgical History: Yes Surgery Procedure, Year, and Place: femur fracture august 2017 - Family History Known Family History: Positive: None, Hypertension - Social History Occupation: Retired Lives: With Family Alcohol Use: None Substance Use Type: None Smoking Status (MU): Never Smoked Tobacco - Immunization History Most Recent Influenza Vaccination: FALL 2016 Most Recent Tetanus Shot: ALLERGIC TO TETANUS TOXOID Most Recent Pneumonia Vaccination: WITHIN LAST 10 YEARS Review of Systems All Other Systems Reviewed And Are Negative: Yes Constitutional: Positive: Fever Skin: Positive: Negative Eyes: Positive: Negative ENT: Positive: Negative Respiratory: Positive: Negative Cardiovascular: Positive: Negative Gastrointestinal: Positive: Negative Genitourinary: Positive: Other - indwelling cath with decreased urinary output Motor: Positive: Negative Neurovascular: Positive: Negative Musculoskeletal: Positive: Arthralgia Neurological: Positive: Negative Psychological: Positive: Negative Is Patient Immunocompromised?: No Physical Exam Triage Information Reviewed: Yes Appearance: Well-Appearing, No Pain Distress, Well-Nourished Vital Signs: Initial Vital Signs Temp 98.5 F 05/17/18 12:30 Pulse 57 05/17/18 12:30 Resp 18 05/17/18 12:30 BP 130/46 05/17/18 12:30 Pulse Ox 100 05/17/18 12:30 Vital Signs Reviewed: Yes Eye Exam: Normal Eyes: Positive: Conjunctiva Clear ENT Exam: Normal ENT: Positive: Normal ENT inspection, Hearing grossly normal. Negative: Trismus , Muffled voice, Hoarse voice Dental Exam: Normal Neck exam: Normal Neck: Positive: Supple, Nontender Respiratory Exam: Normal Respiratory: Positive: Chest non-tender, Normal breath sounds, No respiratory distress, No accessory muscle use Cardiovascular Exam: Normal Cardiovascular: Positive: RRR, No Murmur, Pulses Normal, Brisk Capillary Refill Abdominal Exam: Normal Abdomen Description: Positive: Nontender, No Organomegaly, Soft. Negative: CVA Tenderness (R), CVA Tenderness (L) Bowel Sounds: Positive: Present Musculoskeletal Exam: Normal Musculoskeletal: Positive: Strength Intact, ROM Intact, No Edema Neurological Exam: Normal Neurological: Positive: Alert, Muscle Tone Normal Psychological Exam: Normal Psychological: Positive: Normal Response To Family, Age Appropriate Behavior, Consolable Skin Exam: Normal Back Pain Course/Dx - Course Course Of Treatment: plan [place] [facility] and care - Differential Dx/Diagnosis Provider Diagnoses: fever, decrease urine output Discharge - Sign-Out/Discharge Documenting (check all that apply): Patient Departure All imaging exams completed and their final reports reviewed: No Studies - Discharge Plan Condition: Guarded Disposition: HOME-RECOMMEND TO ED Referrals: Julita Riley MD [Primary Care Provider] - Additional Instructions: Please go to emergency department for further evaluation of fever and decreased urine out put - Billing Disposition and Condition Condition: GUARDED Disposition: Home-Recommend to ED
== END 2018-05-17 13:05 | disposition home health service (06) ==
LOC: UCEAST 11:15
DX: R50.9 Fever, unspecified (principal); R34 Anuria and oliguria; I10 Essential (primary) hypertension; Z91.041 Radiographic dye allergy status; Z88.2 Allergy status to sulfonamides; Z88.7 Allergy status to serum and vaccine; Z88.8 Allergy status to other drugs, medicaments and biological substances
CPT/HCPCS: 99212; G0463

== ENCOUNTER 2018-05-17 13:31 | Emergency (ER) | payer MEDICARE, BC ==
[2018-05-17 14:46] LABS: Urine Appearance Cloudy; Urine Blood Negative (Negative); Urine Color Amber; Urine Ketones Negative (Negative); Urine Protein Negative (Negative); Urine Red Blood Cell 2+(6-10/hpf) (Absent); Urine Urobilinogen Negative (Negative); Urine White Blood Cell 3+(>20/hpf) (Absent)
[2018-05-17] MEDS ORDERED: HYDROcodone/ACETAMIN 5-325 MG* 1 TAB PO ONE (14:55)
[2018-05-17] MEDS ORDERED: Nitrofurantoin Macrocrystals* 100 MG CAP PO ONE (16:54)
[2018-05-17 16:57] VITALS: BP 136/59
--- NOTE | 2018-05-18 06:17 | ED ---
GI/ HPI - HPI Summary HPI Summary: Patient is a 89-year-old female presenting to the ED with family with a chief complaint of decreased urine output into the Samuel bag since this morning. Family is concerned she may have another UTI due to her darkened urine and decreased output. She denies any abdominal pain or suprapubic tenderness. She denies any burning. She denies any distention of the abdomen. She is also endorsing worsening low back pain over the course of the last 4-5 days. She was recently diagnosed with a thoracic and lumbar compression fracture. She denies any injury, but has severe osteoporosis. She has been taking hydrocodone as needed at home for pain control. Primary care physician is Dr. Riley. She denies fevers, sweats, chills. She states other than her back pain, she has been feeling otherwise well. - History of Current Complaint Chief Complaint: EDUrogenitalProblems Time Seen by Provider: 05/17/18 13:50 Stated Complaint: FEVER, BACK PAIN Hx Obtained From: Patient, Family/Law Instructor Onset/Duration: Started Hours Ago Timing: Constant Severity: Moderate Current Severity: Moderate Pain Intensity: 5 Aggravating Factor(s): Nothing Alleviating Factor(s): Nothing - Additional Pertinent History Primary Care Physician: DENNIS - Allergy/Home Medications Allergies/Adverse Reactions: Allergies Allergy/AdvReac Type Severity Reaction Status Date / Time Iodinated Contrast- Oral and Allergy Hives Verified 05/17/18 13:41 IV Dye Sulfa (Sulfonamide Allergy Weakness Verified 05/17/18 13:41 Antibiotics) Tetanus Vaccines and Toxoid Allergy Swelling Verified 05/17/18 13:41 thiopental Allergy Unknown Verified 05/17/18 13:41 Reaction Details valsartan [From Diovan] Allergy abnormal Verified 05/17/18 13:41 labs enalaprilat [From Vasotec] AdvReac Coughing Verified 05/17/18 13:41 iv dye Allergy Hives Uncoded 05/17/18 13:41 sodium pentathol AdvReac Mild weakness Uncoded 05/17/18 13:41 PMH/Surg Hx/FS Hx/Imm Hx Previously Healthy: Yes Endocrine/Hematology History: Reports: Hx Blood Transfusions - 45 UNITS PRBC & 16 UNITS PLATELETS TOTAL HX, Hx Bone Marrow Disease - MYELODYSPLASIA, Hx Anemia Cardiovascular History: Reports: Hx Angina, Hx Coronary Artery Disease, Hx Hypercholesterolemia, Hx Hypertension Denies: Hx Congestive Heart Failure, Hx Myocardial Infarction, Hx Pacemaker/ ICD, Other Cardiovascular Problems/Disorders Respiratory History: Reports: Hx Asthma - NOT SINCE ADULTHOOD Denies: Hx Chronic Obstructive Pulmonary Disease (COPD), Other Respiratory Problems/Disorders GI History: Reports: Hx Gall Bladder Disease - HAD JULIETTE, Hx Gastroesophageal Reflux Disease - ON MEDICATION FOR, Hx Irritable Bowel, Other GI Disorders - COLITIS AT TIMES Denies: Hx Hiatal Hernia History: Denies: Other Problems/Disorders Musculoskeletal History: Reports: Hx Arthritis - HANDS, BACK, Hx Gout - X1, Hx Tendonitis - LEFT ANKLE, Other Musculoskeletal History - JAW PAIN-ARTHRITIS PER PATIENT Denies: Hx Osteoporosis Sensory History: Reports: Hx Cataracts, Hx Contacts or Glasses, Hx Vision Problem, Hx Hearing Aid, Hx Hearing Problem Denies: Hx Glaucoma Opthamlomology History: Reports: Hx Cataracts, Hx Contacts or Glasses, Hx Vision Problem Denies: Hx Glaucoma Neurological History: Reports: Hx Nerve Disease - NEUROPATHY Denies: Other Neuro Impairments/Disorders Psychiatric History: Denies: Hx Panic Disorder - Cancer History Cancer Type, 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) Hx Chemotherapy: Yes - [id number] Hx Radiation Therapy: No Hx Palliative Cancer Treatment: Yes - LUMPECTOMY - Surgical History Surgery Procedure, Year, and Place: femur fracture august 2017 Hx Anesthesia Reactions: Yes - NAUSEA AND VOMITING - Immunization History Date of Tetanus Vaccine: allergic Date of Influenza Vaccine: 2016 Hx Pertussis Vaccination: No Immunizations Up to Date: Yes Infectious Disease History: No Infectious Disease History: Reports: Hx Shingles Denies: Hx Clostridium Difficile, Hx Hepatitis, Hx Human Immunodeficiency Virus (HIV), Hx of Known/Suspected MRSA, Hx Tuberculosis, Hx Known/Suspected VRE , Hx Known/Suspected VRSA, History Other Infectious Disease, Traveled Outside the [place] in Last 30 Days - Family History Known Family History: Positive: None, Hypertension - Social History Occupation: Unemployed Lives: With Family Alcohol Use: None Hx Substance Use: No Substance Use Type: Reports: None Hx Tobacco Use: No Smoking Status (MU): Never Smoked Tobacco Review of Systems Negative: Fever, Chills, Fatigue Negative: Palpitations, Chest Pain Negative: Shortness Of Breath, Cough Genitourinary: Negative Positive: no symptoms reported, see HPI, other - decreased urine output into the samuel bag Positive: Arthralgia Skin: Negative All Other Systems Reviewed And Are Negative: Yes Physical Exam Triage Information Reviewed: Yes Vital Signs On Initial Exam: Initial Vitals Temp Pulse Resp BP Pulse Ox 99.2 F 53 16 134/55 98 05/17/18 13:38 05/17/18 13:38 05/17/18 13:38 05/17/18 13:38 05/17/18 13:38 Vital Signs Reviewed: Yes Appearance: Positive: No Pain Distress, Well-Nourished Skin: Positive: Skin Color Reflects Adequate Perfusion Head/Face: Positive: Normal Head/Face Inspection Eyes: Positive: EOMI, [place], Conjunctiva Clear Neck: Positive: Supple, No Lymphadenopathy Respiratory/Lung Sounds: Positive: Clear to Auscultation, Breath Sounds Present Cardiovascular: Positive: RRR, Pulses are Symmetrical in both Upper and Lower Extremities Musculoskeletal: Positive: Pain @ - lower back Neurological: Positive: Alert, Oriented to Person Place, Time Psychiatric: Positive: Affect/Mood Appropriate AVPU Assessment: Alert Diagnostics - Vital Signs Vital Signs Temp Pulse Resp BP Pulse Ox 05/17/18 17:30 99.2 F 59 16 136/59 97 05/17/18 16:49 59 136/59 97 05/17/18 16:41 59 144/60 97 05/17/18 16:12 60 145/60 99 05/17/18 16:00 58 98 05/17/18 15:01 61 96 05/17/18 14:03 59 99 05/17/18 13:38 99.2 F 53 16 134/55 98 - Laboratory Lab Results: Lab Results 05/17/18 Range/Units 14:31 Urine Color Fatimah Urine Appearance Cloudy Urine pH 6.0 (5-9) Ur Specific [place] 1.020 (1.010-1.030) Urine Protein Negative (Negative) Urine Ketones Negative (Negative) Urine Blood Negative (Negative) Urine Nitrate Negative (Negative) Urine Bilirubin Negative (Negative) Urine Urobilinogen Negative (Negative) Ur Leukocyte Esterase 3+ A (Negative) Urine WBC (Auto) 3+(>20/hpf) A (Absent) Urine RBC (Auto) 2+(6-10/hpf) A (Absent) Urine Bacteria 1+ A (Absent) Hyaline Casts Present A (Absent) Urine Glucose Negative (Negative) Urine Ascorbic Acid * A (Negative) Lab Statement: Any lab studies that have been ordered have been reviewed, and results considered in the medical decision making process. GIGU Course/Dx - Course Course Of Treatment: Patient's evaluated for decreased urine output into the Samuel bag as well as worsening low back pain. She was recently diagnosed with a compression fracture of the T-spine as well as the L-spine. She states her at home. Medications are not improving her symptoms. During the course of treatment, CT of the thoracic and lumbar spine are obtained. There is a new compression fracture at L1. Denies any numbness or tingling or difficulty with BM's. She had decreased output of urine this morning, however after several glasses of water in the ED, there is free-flowing urine into the Samuel bag which is light yellow in color and non-malodorous. Lungs CTA. RRR. There is no abdominal distention pain on palpation. UA obtained which shows 3+ WBC and 3 + leukocytes. She is placed on Macrobid as this was sensitive to her previous UTI organism. We will call the patient and change if needed after cultures return. - Diagnoses Provider Diagnoses: Compression fracture, UTI (urinary tract infection), Decreased urine output Discharge - Sign-Out/Discharge Documenting (check all that apply): Patient Departure - Discharge Plan Condition: Stable Disposition: HOME Prescriptions: Nitrofurantoin Monohyd/M-Cryst [Macrobid 100 mg Capsule] 100 mg PO BID #10 cap Patient Education Materials: Vertebral Compression Fracture (ED), Urinary Tract Infection in Older Adults (ED) Referrals: Julita Riley MD [Primary Care Provider] - Additional Instructions: Please follow up with Dr. Bay this week regarding your new compression fx as well as your UTI Will call if the antibiotic is not susceptible to the medication given today. Continue to drink plenty of fluids - Billing Disposition and Condition Condition: STABLE Disposition: Home
--- NOTE | 2018-05-20 15:41 | ED ---
Progress - Progress Note Progress Note: Patient's preliminary urine culture reveals greater than 100,000 Enterobacter cloacae. Patient was started on Macrobid. Final results pending. Course/Dx - Course Course Of Treatment: Patient's evaluated for decreased urine output into the Zheng bag as well as worsening low back pain. She was recently diagnosed with a compression fracture of the T-spine as well as the L-spine. She states her at home. Medications are not improving her symptoms. During the course of treatment, CT of the thoracic and lumbar spine are obtained. There is a new compression fracture at L1. Denies any numbness or tingling or difficulty with BM's. She had decreased output of urine this morning, however after several glasses of water in the ED, there is free-flowing urine into the Zheng bag which is light yellow in color and non-malodorous. Lungs CTA. RRR. There is no abdominal distention pain on palpation. UA obtained which shows 3+ WBC and 3 + leukocytes. She is placed on Macrobid as this was sensitive to her previous UTI organism. We will call the patient and change if needed after cultures return. - Diagnoses Provider Diagnoses: Compression fracture, UTI (urinary tract infection), Decreased urine output Discharge - Sign-Out/Discharge Documenting (check all that apply): Post-Discharge Follow Up - Discharge Plan Condition: Stable Disposition: HOME Prescriptions: Nitrofurantoin Monohyd/M-Cryst [Macrobid 100 mg Capsule] 100 mg PO BID #10 cap Patient Education Materials: Vertebral Compression Fracture (ED), Urinary Tract Infection in Older Adults (ED) Referrals: Julita Riley MD [Primary Care Provider] - Additional Instructions: Please follow up with Dr. Bay this week regarding your new compression fx as well as your UTI Will call if the antibiotic is not susceptible to the medication given today. Continue to drink plenty of fluids - Billing Disposition and Condition Condition: STABLE Disposition: Home
--- NOTE | 2018-05-21 05:56 | PN ---
Progress Note - Progress Note Date of Service: 05/18/18 Note: Pt. was seen in ED 05/17 and started on Macrobid for a UTI. Final urine culture toda is growing >100,000 enterobacter and e. coli both susceptible to macrobid. No change in treatment needed at this time.
== END 2018-05-17 17:30 | disposition home or self-care (01) ==
LOC: ED 13:31
DX: N39.0 Urinary tract infection, site not specified (principal); B96.20 Unspecified Escherichia coli [E. coli] as the cause of diseases classified elsewhere; M48.56XA Collapsed vertebra, not elsewhere classified, lumbar region, initial encounter for fracture; X58.XXXA Exposure to other specified factors, initial encounter; Y92.9 Unspecified place or not applicable; R50.9 Fever, unspecified; R34 Anuria and oliguria; I10 Essential (primary) hypertension; Z91.041 Radiographic dye allergy status; Z88.2 Allergy status to sulfonamides; Z88.7 Allergy status to serum and vaccine; Z88.8 Allergy status to other drugs, medicaments and biological substances
CPT/HCPCS: 72128; 72131; 81003; 81015; 87077; 87086; 87186; 99212; 99282; A9270-GY; G0463

== ENCOUNTER 2018-06-14 09:41 | Emergency (ER) | payer MEDICARE, BC ==
--- OUTSIDE RECORDS SUMMARY | 2018-06-14 09:47 | XMS REPORT | Continuity of Care Document ---
:1930 External Reference #:[id number] Author Name Petra Daugherty Care Team Providers Name Role Phone Julita Riley MD Primary Care Physician Unavailable Payers Type Date Identification Numbers Payment Provider Subscriber Policy Number: [id number] Medicare Eloise Ortega PayID: [id number] [address] [place] [address] Effective: 1993 Policy Number: [id number] Medicare Eloise Ortega Expires: 2018 PayID: [id number] [address] [place] [address] Effective: 2012 Policy Number: [id number] [facility] Eloise Ortega PayID: [id number] [address] [place] [address] Advance Directives Description No Information Available Problems Date Description Provider Status Onset: 07/28/2017 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 Active Onset: 07/28/2017 Abnormal gait Mic Burgos M.D. Active Onset: 10/17/2017 Other fracture of lower end of left Ivan Yen MD Active femur, subsequent encounter for closed fracture with routine healing Onset: 12/04/2017 Polyneuropathy Mic Burgos M.D. Active Family History Description No Information Available Social History Type Date Description Comments Sex Unknown ETOH Use Denies alcohol use Tobacco Use Start: Unknown Patient has never smoked Smoking Status Reviewed: 06/08/18 Patient has never smoked Allergies, Adverse Reactions, Alerts Date Description Reaction Status Severity Comments 06/10/2016 Diovan Active 06/10/2016 Novocain Active 06/10/2016 Sulfa Antibiotics Active 06/10/2016 Tetanus Immune Globulin Active 06/10/2016 Vasotec Active 06/10/2016 Contrast Dye Active 06/10/2016 Sodium Pentathol Active 07/28/2017 Hydrochlorothiazide Active 07/28/2017 Losartan Active 07/28/2017 Cardura Active 07/28/2017 Mevacor Active 07/28/2017 Altace Active Medications Medication Date Status Form Strength [...] Unknown /0000 0mg/5ML hours as needed Aspir-[address] 81mg 1 by Unknown /0000 mouth every day Vitamin C Active Tablets 500mg 1 by Unknown /0000 mouth every day Cranberry Active 4200 As Unknown /0000 directed Probiotic Active Capsules 1 by Unknown /0000 mouth every day Neurontin 07/28 Hx Capsules 100mg 90cap take 1 G62.9 s capsule 3 Rosendo Burgos - times a Calcium 00/ Hx Tablets 800mg two daily Unknown / - 12/03 Colchicine Hx Capsules 0.6mg 1 by Unknown / mouth - every day 07/27 Dicyclomine HCL Hx Tablets 10mg take 1 Unknown tablet by - mouth two 12/03 day Tamoxifen Hx Tablets 20mg once a Unknown Citrate / day - 07/27 Estrace Hx Cream 0.1mg/GM use one Unknown applicato - rful two 07/27 weekly Levsin Hx Tablets 0.125mg one tab Unknown every 4 - hours, as 07/25 Fexofenadine Hx Tablets 180mg once Unknown HCL daily - 07/27 Medications Administered in Office Medication Date Status Form Strength Qnty SIG Indications Ordering Provider Depomedrol Administered Injection Kathi 40MG Drois Whitaker M.D. Immunizations Description No Information Available Vital Signs Date Vital Result Comment 06/08/2018 9:10am Height 60 inches 5'0" Heart Rate 60 /min BP Systolic 132 mmHg BP Diastolic 70 mmHg Body Temperature 98.1 F Pain Level 0 05/04/2018 9:09am Height 60 inches 5'0" Weight 120.00 lb Heart Rate 56 /min BP Systolic 102 mmHg BP Diastolic 58 mmHg BMI (Body Mass Index) 23.4 kg/m2 04/24/2018 9:02am Height 60 inches 5'0" Weight 120.00 lb BP Systolic 104 mmHg BP Diastolic 62 mmHg Respiratory Rate 15 /min Pain Level 9 BMI (Body Mass Index) 23.4 kg/m2 02/04/2018 8:06am Weight 120.00 lb Heart Rate 62 /min BP Systolic Sitting 100 mmHg BP Diastolic Sitting 60 mmHg Respiratory Rate 16 /min Pain Level 0 02/02/2018 8:06am Weight 120.00 lb Wheelchair Heart Rate 58 /min BP Systolic 126 mmHg BP Diastolic 60 mmHg Respiratory Rate 16 /min 12/05/2017 8:28am Heart Rate 64 /min BP Systolic Sitting 144 mmHg BP Diastolic Sitting 58 mmHg Respiratory Rate 20 /min Body Temperature 97.7 F 12/04/2017 10:06am Height 60 inches 5'0" Weight 112.00 lb before surgery Heart Rate 68 /min BP Systolic 130 mmHg BP Diastolic 60 mmHg Respiratory Rate 16 /min BMI (Body Mass Index) 21.9 kg/m2 11/03/2017 8:40am Height 60 inches 5'0" Weight 112.00 lb Heart Rate 52 /min BP Systolic 118 mmHg BP Diastolic 66 mmHg Body Temperature 97.6 F BMI (Body Mass Index) 21.9 kg/m2 10/17/2017 2:07pm Height 60 inches 5'0" Weight 112.00 lb Heart Rate 60 /min BP Systolic 136 mmHg BP Diastolic 70 mmHg BMI (Body Mass Index) 21.9 kg/m2 10/06/2017 8:10am Height 60 inches 5'0" Weight 112.00 lb Heart Rate 62 /min BP Systolic 140 mmHg BP Diastolic 60 mmHg Respiratory Rate 17 /min Body Temperature 97.7 F Pain Level 5 BMI (Body Mass Index) 21.9 kg/m2 07/28/2017 8:45am Height 60 inches 5'0" Weight 112.00 lb Heart Rate 60 /min BP Systolic 118 mmHg BP Diastolic 40 mmHg Respiratory Rate 16 /min BMI (Body Mass Index) 21.9 kg/m2 06/26/2016 11:04am Heart Rate 78 /min Respiratory Rate 18 /min Body Temperature 99.2 F 06/11/2016 1:29pm Height 61 inches 5'1" Weight 126.00 lb Heart Rate 72 /min BP Systolic 142 mmHg BP Diastolic 76 mmHg Respiratory Rate 16 /min Body Temperature 97.8 F BMI (Body Mass Index) 23.8 kg/m2 Results Test Date Facility Test Result H/L Range Note Laboratory test 09/08/2017 [facility] Erythrocyte Sed 21 mm/Hr N 0-[address] [place] [address] [phone] C Reactive Protein < 1.00 mg/L N < 5.00 1 Laboratory test 07/28/2017 [facility] Erythrocyte Sed 66 mm/Hr High 0-[address] [place], [place] [id number] [phone] Protein 07/28/2017 [facility] Total 6.9 g/dL 6.3 - Electrophoresis [address] Protein(Pep) 7.9 [place] [address] [phone] Albumin 3.4 g/dL 3.4-4.7 Alpha-1 Globulin 0.4 g/dL Abnormal 0.1-0.3 Alpha-2 Globulin 1.1 g/dL Abnormal 0.6-1.0 Beta Globulin 0.8 g/dL 0.7-1.2 Gamma Globulin 1.2 g/dL 0.6-1.6 Albumin/Globulin Ratio 0.96 Impression See Comment 2 Immunofixation See Comment 3 Anca Panel For 07/28/2017 [facility] Myeloperoxidase AB < 0.2 U [address] [place] [address] [phone] Proteinase 3 AB < 0.2 U 5 Laboratory test 06/20/2016 [facility] Surgical SEE RESULT [address] [place] [address] [phone] 1 Acute inflammation: >10.00 2 Small abnormality in gamma fraction. See Immunofixation. 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 Suggest repeat testing in 6-12 months if clinically indicated. Test Performed by: [address] [address] 4 REFERENCE VALUE <0.4 (Negative) 5 REFERENCE VALUE <0.4 (Negative) Test Performed by: [facility] - [address] [address] 6 SEE RESULT BELOW Name: ELOISE ORTEGA : [address]: Chas Pena MD Acct: [id number] Unit: [id number] AGE: 86 Location: SDS Re06/20/16 SEX: F Status: REG SDC SPEC: [id number] FOUZIA: 06/20/16 [facility] DR: Chas Pena MD REQ: [id number] RECD: 06/20/16 STATUS: HUONG MCCALLUM DR: Valentín Newman MD _ ORDERED: ESTRO REC ST, LEVEL IV, LEVEL V, PRAS-ADD Dr. Cr reviewed this case in intradepartmental consultation and agrees with the diagnosis. Addendum Signed (signature on file) Crystal Paniagua MD 1410 Immunohistochemical stains, with appropriately reacting controls, were performed with the following results: ER strongly positive, nearly 100% of DCIS cells WV moderately to strongly positive, approximately 60% of DCIS cells Addendum Signed (signature on file)Fidelia Paniagua MD 1014 FINAL DIAGNOSIS 1. Breast, left, lumpectomy: -- Ductal carcinoma in situ (DCIS), with: Size: 27 mm (measured on the histologic slide. Extent and distribution: Present throughout specimen. Architectural pattern: Clinging and cribriform types. Nuclear grade: Low. Necrosis: Absent. Microcalcifications: Present. Microinvasion: Not identified. ER/WV by immunohistochemistry with appropriate controls: ER: Pending; results will be reported in an addendum. WV: Pending; results will be reported in an addendum. Margins: All margins are negative by greater than 1 cm. Other findings: Discrete focus of fat necrosis in lateral aspect of specimen. pTNM histopathologic stage: pTis. 2. Skin, left breast, excision: -- Skin and subcutaneous tissue with no significant pathologic abnormalities. CONTINUED ON NEXT PAGE * ML=Testing performed at Main Lab DEPARTMENT OF PATHOLOGY, [address] [place] [address] Erick Cr M.D. Director [facility] # [id number] RUN DATE: 06/25/16 [facility] LAB LIVE PAGE 2 Patient: ELOISE ORTEGA [id number] (Continued) FINAL DIAGNOSIS (Continued) PRE-OPERATIVE DIAGNOSIS Unspecified [...] serially sectioned from lateral to medial and energy conservation representative sections are submitted in cassettes A [...] 1.0 cm. The specimen is inked and energy conservation representative sections are submitted in two cassettes. Signed (signature on file) Crystal Paniagua MD 1206 END OF REPORT * ML=Testing performed at Main Lab DEPARTMENT OF PATHOLOGY, [address] [place] [address] Erick Cr M.D. Director [facility] # [id number] Procedures Date Code Description Status 09/11/2017 44866 EKG, Interpretation Only Completed 09/11/2017 56202 FX Femur Supra/Transcondylar Open TX Intercondylar Ext Completed W/Wo Fix 09/11/2017 80813 FX Femur Supra/Transcondylar Open TX Intercondylar Ext Completed W/Wo Fix 09/10/2017 62255 EKG, Interpretation Only Completed 07/08/2017 70925 Treadmill Interp/Report Only Completed 07/08/2017 49859 Stress Test Supervsn W/Out I/R Completed 07/05/2017 27119 EKG, Interpretation Only Completed 06/20/2016 25345 Excise Breast Lesion Single,Identified By Pre-Op Completed Radiolog Marker 06/20/2016 [id number] Mammogram Completed 05/15/2016 [id number] Mammogram Completed Encounters Type Date Location Provider Dx Diagnosis Office Visit 04/24/2018 Orthopedic Kathi Whitaker, S72.492D Oth fx lower end 8:45a Services Of JbMJamarcus Robbins of [place], subs for clos fx w routn heal M25.552 Pain in left hip S32.040A Wedge compression fracture of fourth lumbar vertebra, init Office Visit 02/04/2018 Orthopedic Katih Whitaker S72.492D Oth fx lower end 8:00a Services Of Rosendo of l femur, subs C.M.A. 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 of lower end Hospitalists of left femur, init for clos fx I10 Essential (primary) hypertension Z87.19 Personal history of other diseases of the digestive system Z85.3 Personal history of malignant neoplasm of breast Office Visit 09/13/2017 [facility] Angela Sandoval, S72.492A Oth fracture 9:29a Assmelisa espinosa.Brandon. of lower end Hospitalists of left femur, init for clos fx I10 Essential (primary) hypertension Z87.19 Personal history of other diseases of the digestive system Z85.3 Personal history of malignant neoplasm of breast Office Visit 09/12/2017 [facility] Joselyn Sandoval, S72.492A Oth fracture 9:28a Assmelisa espinosa M.D. of lower end Hospitalists of left femur, init for clos fx I10 Essential (primary) hypertension Z87.19 Personal history of other diseases of the digestive system Z85.3 Personal history of malignant neoplasm of breast Office Visit 09/11/2017 [facility] Angela Sandoval, S72.492A Oth fracture 9:28a Assmelisa espinosa.Tona of lower end Hospitalists of left femur, init for clos fx I10 Essential (primary) hypertension Z87.19 Personal history of other diseases of the digestive system Z85.3 Personal history of malignant neoplasm of breast Office Visit 09/11/2017 2:18p Orthopedic Kathi Whitaker, S72.462A Displ suprcndl Services Of Robbin Robbins fx w intrcndl extn lower end of l femur, init Office Visit 09/10/2017 9:26a [facility] Elizabet S72.492A Oth fracture Assoc,melisa Solano, of lower end Hospitalists CHIEF FINANCIAL OFFICER of left femur, init for clos fx I10 Essential (primary) hypertension Z85.3 Personal history of malignant neoplasm of breast Z87.19 Personal history of other diseases of the digestive system Office Visit 07/28/2017 [facility] Mic G62.9 Polyneuropathy, 8:30a Neurologic Rosendo Burgos unspecified [facility] M54.32 Sciatica, left side R26.81 Unsteadiness on feet Z92.21 Personal history of antineoplastic chemotherapy Office Visit 06/11/2016 Surgical Chas Hassan N63 Unspecified lump in 1:15p [facility] Salazar Pena. breast Office Visit 07/24/2013 [facility] Raffaele 009.1 Colitis Enteritis & 2:35p Assoc,pc Acosta N.P. Gastroenteritis Hospitalists Presumed Infectious Orig 595.9 Cystitis Unspec 401.9 Hypertension Unspec V10.3 History Personal Malignant Neoplasm Breast Office Visit 07/22/2013 [facility] Grant 009.1 Colitis Enteritis & 2:33p Assoc,pc Shoaib N.P. Gastroenteritis Hospitalists Presumed Infectious Orig 595.9 Cystitis Unspec 401.9 Hypertension Unspec V10.3 History Personal Malignant Neoplasm Breast Plan of Treatment Future Appointment(s):08/18/2018 8:15 am - Mic Burgos M.D. at [facility]06/08/2018 - Kathi Whitaker M.D.M25.552 Pain in left hipFollow up:Follow up: prnM70.62 Trochanteric bursitis, left hip
[2018-06-14 09:57] VITALS: BP 121/51
--- NOTE | 2018-06-14 10:14 | UC ---
Back Pain HPI - HPI Summary HPI Summary: patient dx with non-traumatic lumbar compression fx 1-2 months ago. is scheduled to start PT but 2 daysa go felt increased lower back pain. 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 Negative: Numbness, Bladder Incontinence, Bowel Incontinence - Risk Factors Cauda Equina Risk Factors: Negative - Allergies/Home Medications Allergies/Adverse Reactions: Allergies Allergy/AdvReac Type Severity Reaction Status Date / Time Iodinated Contrast- Oral and Allergy Hives Verified 05/17/18 13:41 IV Dye Sulfa (Sulfonamide Allergy Weakness Verified 05/17/18 13:41 Antibiotics) Tetanus Vaccines and Toxoid Allergy Swelling Verified 05/17/18 13:41 thiopental Allergy Unknown Verified 05/17/18 13:41 Reaction Details valsartan [From Diovan] Allergy abnormal Verified 05/17/18 13:41 labs enalaprilat [From Vasotec] AdvReac Coughing Verified 05/17/18 13:41 iv dye Allergy Hives Uncoded 05/17/18 13:41 sodium pentathol AdvReac Mild weakness Uncoded 05/17/18 13:41 PMH/Surg Hx/FS Hx/Imm Hx Previously Healthy: Yes Cardiovascular History: Hypertension GI/ History: Gastroesophageal Reflux Cancer History: Breast Cancer - Surgical History Surgical History: Yes Surgery Procedure, Year, and Place: femur fracture august 2017 - Family History Known Family History: Positive: Hypertension - Social History Occupation: Retired Lives: With Family Alcohol Use: None Substance Use Type: None Smoking Status (MU): Never Smoked Tobacco - Immunization History Most Recent Influenza Vaccination: FALL 2016 Most Recent Tetanus Shot: ALLERGIC TO TETANUS TOXOID Most Recent Pneumonia Vaccination: WITHIN LAST 10 YEARS Review of Systems All Other Systems Reviewed And Are Negative: Yes Constitutional: Positive: Negative Skin: Positive: Negative. Negative: Rash Respiratory: Positive: Negative Cardiovascular: Positive: Negative Gastrointestinal: Positive: Negative Neurovascular: Positive: Negative Musculoskeletal: Positive: Decreased ROM - stays in wheelchair baseline Neurological: Positive: Negative Psychological: Positive: Negative Is Patient Immunocompromised?: No Physical Exam Triage Information Reviewed: Yes Appearance: Well-Appearing, No Pain Distress, Well-Nourished Vital Signs: Initial Vital Signs Temp 98.4 F 06/14/18 09:46 Pulse 62 06/14/18 09:46 Resp 16 06/14/18 09:46 BP 121/51 06/14/18 09:46 Pulse Ox 100 06/14/18 09:46 Vital Signs Reviewed: Yes Respiratory Exam: Normal Cardiovascular Exam: Normal Musculoskeletal: Positive: Other: - unable to assess-prefers to stay in wheelchair for comfort. Neurological Exam: Normal Neurological: Positive: Alert Psychological Exam: Normal Skin Exam: Normal Diagnostics - Radiology No standard instances Radiology Interpretation Completed By: Radiologist - marycarmen fx L 4 Back Pain Course/Dx - Differential Dx/Diagnosis Differential Diagnosis/HQI/PQRI: Cauda Equina Syndrome, Fracture, Strain Provider Diagnosis: Lumbar compression fracture Discharge - Sign-Out/Discharge Documenting (check all that apply): Patient Departure All imaging exams completed and their final reports reviewed: Yes - Discharge Plan Condition: Stable Disposition: HOME Patient Education Materials: Vertebral Compression Fracture (ED) Referrals: Julita Riley MD [Primary Care Provider] - 2 Days (for recheck) Additional Instructions: follow up with primary care and ortho providers as planned for physical therapy return if pain or problems occur - Billing Disposition and Condition Condition: STABLE Disposition: Home
== END 2018-06-14 11:20 | disposition home or self-care (01) ==
LOC: UCEAST 09:41
DX: M48.56XA Collapsed vertebra, not elsewhere classified, lumbar region, initial encounter for fracture (principal); I10 Essential (primary) hypertension; Z88.7 Allergy status to serum and vaccine; Z91.041 Radiographic dye allergy status; Z88.8 Allergy status to other drugs, medicaments and biological substances; Z88.2 Allergy status to sulfonamides
CPT/HCPCS: 72110; 99211; G0463

== ENCOUNTER 2018-06-26 19:22 | Inpatient (IN) | payer MEDICARE, BC ==
[2018-06-26] MEDS ORDERED: NS 0.9% 1000 ML*IV.FLUID IV ONE (19:29)
--- NOTE | 2018-06-26 19:42 | ED ---
HPI Febrile Illness - HPI Summary HPI Summary: An 88 y/o female brought in by [facility] ambulance presents to [facility] with a chief complaint of fever since 17:00 06/26/18. She is currently being treated with abx for a UTI since 06/21/18. She rates her pain as 5/10. Her fever was 101 at home and in the ED it is 100.8. The patient also c/o lower back pain, coughing up phlegm and SOB. She denies sore throat, runny nose, rash or joint pain. She has a Hx of osteoporosis, a broken femur and broken back vertebrae. She claims that she has excruciating lower back pain when getting up. The patient took oxycodone at 17:15. - History of Current Complaint Chief Complaint: EDGeneral Hx Obtained From: Patient, Family/Completions Engineer, EMS Onset/Duration: Started Hours Ago, Still Present Timing: Constant Initial Severity: Moderate Current Severity: Moderate Pain Intensity: 5 Pain Scale Used: 0-10 Numeric Aggravating Factors: Nothing Alleviating Factors: Nothing Associated Signs and Symptoms: Negative - sore throat, runny nose, rash, joint pain, Cough, Myalgia, SOB - Additional Pertinent History Primary Care Physician: DENNIS - Allergy/Home Medications Allergies/Adverse Reactions: Allergies Allergy/AdvReac Type Severity Reaction Status Date / Time Iodinated Contrast- Oral and Allergy Hives Verified 05/17/18 13:41 IV Dye Sulfa (Sulfonamide Allergy Weakness Verified 05/17/18 13:41 Antibiotics) Tetanus Vaccines and Toxoid Allergy Swelling Verified 05/17/18 13:41 thiopental Allergy Unknown Verified 05/17/18 13:41 Reaction Details valsartan [From Diovan] Allergy abnormal Verified 05/17/18 13:41 labs enalaprilat [From Vasotec] AdvReac Coughing Verified 05/17/18 13:41 iv dye Allergy Hives Uncoded 05/17/18 13:41 sodium pentathol AdvReac Mild weakness Uncoded 05/17/18 13:41 Home Medications: Home Medications Cefdinir 300 MG cap (NF) 300 mg PO DAILY 06/26/18 [History Confirmed 06/26/18] PMH/Surg Hx/FS Hx/Imm Hx Endocrine/Hematology History: Reports: Hx Blood Transfusions - 45 UNITS PRBC & 16 UNITS PLATELETS TOTAL HX, Hx Bone Marrow Disease - MYELODYSPLASIA, Hx Anemia Denies: Hx Diabetes, Hx Thyroid Disease Cardiovascular History: Reports: Hx Angina, Hx Coronary Artery Disease, Hx Hypercholesterolemia, Hx Hypertension Denies: Hx Congestive Heart Failure, Hx Myocardial Infarction, Hx Pacemaker/ ICD, Other Cardiovascular Problems/Disorders Respiratory History: Denies: Hx Asthma - NOT SINCE ADULTHOOD, Hx Chronic Obstructive Pulmonary Disease (COPD), Other Respiratory Problems/Disorders GI History: Reports: Hx Gall Bladder Disease - HAD JULIETTE, Hx Gastroesophageal Reflux Disease - ON MEDICATION FOR, Hx Irritable Bowel, Other GI Disorders - COLITIS AT TIMES Denies: Hx Hiatal Hernia, Hx Ulcer History: Denies: Other Problems/Disorders Musculoskeletal History: Reports: Hx Arthritis - HANDS, BACK, Hx Gout - X1, Hx Tendonitis - LEFT ANKLE, Other Musculoskeletal History - JAW PAIN-ARTHRITIS PER PATIENT Denies: Hx Osteoporosis Sensory History: Reports: Hx Cataracts, Hx Contacts or Glasses, Hx Vision Problem, Hx Hearing Aid, Hx Hearing Problem Denies: Hx Glaucoma Opthamlomology History: Reports: Hx Cataracts, Hx Contacts or Glasses, Hx Vision Problem Denies: Hx Glaucoma Neurological History: Reports: Hx Nerve Disease - NEUROPATHY Denies: Other Neuro Impairments/Disorders Psychiatric History: Denies: Hx Panic Disorder - Cancer History Cancer Type, 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) Hx Chemotherapy: Yes - [id number] Hx Radiation Therapy: No Hx Palliative Cancer Treatment: Yes - LUMPECTOMY - Surgical History Surgery Procedure, Year, and Place: femur fracture august 2017 Hx Anesthesia Reactions: Yes - NAUSEA AND VOMITING - Immunization History Date of Tetanus Vaccine: allergic Date of Influenza Vaccine: 2017 Infectious Disease History: No Infectious Disease History: Reports: Hx Shingles Denies: Hx Clostridium Difficile, Hx Hepatitis, Hx Human Immunodeficiency Virus (HIV), Hx of Known/Suspected MRSA, Hx Tuberculosis, Hx Known/Suspected VRE , Hx Known/Suspected VRSA, History Other Infectious Disease, Traveled Outside the [place] in Last 30 Days - Family History Known Family History: Positive: None, Hypertension - Social History Alcohol Use: None Hx Substance Use: No Substance Use Type: Reports: None Hx Tobacco Use: No Smoking Status (MU): Never Smoked Tobacco Review of Systems Positive: Fever Negative: Sore Throat, Nasal Discharge Positive: Shortness Of Breath, Cough Musculoskeletal: Negative - joint pain Positive: Myalgia - lower back pain Negative: Rash All Other Systems Reviewed And Are Negative: Yes Physical Exam - Summary Physical Exam Summary: Appearance: Febrile, rest of vital signs are unremarkable, lying in bed comfortably Skin: Warm, dry, no obvious rash Eyes: sclera anicteric, no conjunctival pallor ENT: mucous membranes moist, pharynx appears normal Neck: Supple, nontender Respiratory: Clear to auscultation, no signs of respiratory distress Cardiovascular: Normal S1, S2. No murmurs. Normal distal pulses in tibial and radial bilaterally. Abdomen: Soft, nontender, normal active bowel sounds present Musculoskeletal: Normal, Strength/ROM Intact Neurological: A&Ox3, awake and alert, mentation is normal, speech is fluent and appropriate Psychiatric: affect is normal, does not appear anxious or depressed Triage Information Reviewed: Yes Vital Signs On Initial Exam: Initial Vitals Temp Pulse Resp BP Pulse Ox 100.8 F 86 18 150/80 95 06/26/18 19:24 06/26/18 19:24 06/26/18 19:24 06/26/18 19:24 06/26/18 19:24 Vital Signs Reviewed: Yes Diagnostics - Vital Signs Vital Signs Temp Pulse Resp BP Pulse Ox 06/26/18 19:24 100.8 F 86 18 150/80 95 - Laboratory Result Diagrams: 06/26/18 19:44 06/26/18 19:44 Lab Statement: Any lab studies that have been ordered have been reviewed, and results considered in the medical decision making process. - Radiology CXR Radiology Interpretation Completed By: ED Physician Summary of Radiographic Findings: Extensive right middle lobe infiltrate. Pending official radiology report. - EKG 19:48 Cardiac Rate: NL - 83 bpm EKG Rhythm: Sinus Rhythm Summary of EKG Findings: NSR at 83 bpm with LVH with secondary repolarization abnormality and anterior infarct. Course/Dx - Course Course Of Treatment: An 88 y/o female brought in by [facility] ambulance presents to [facility] with a chief complaint of fever since 17:00 06/26/18. She is currently being treated with abx for a UTI since 06/21/18. She rates her pain as 5/10. Her fever was 101 at home and in the ED it is 100.8. The patient also c/o lower back pain, coughing up phlegm and SOB. She denies sore throat, runny nose, rash or joint pain. She has a Hx of osteoporosis, a broken femur and broken back vertebrae. She claims that she has excruciating lower back pain when getting up. The patient took oxycodone at 17:15. The physical exam revealed that the patient is febrile with rest of vital signs being unremarkable. EKG showed NSR at 83 bpm with LVH with secondary repolarization abnormality and anterior infarct. Lab results obtained. High WBC of 11.0. CXR showed extensive right middle lobe infiltrate. In the ED course the patient was given tylenol PO and sodium chloride IV. Discussed the case with Dr. Alcantara, hospitalist, who accepted the patient for admission. The patient is agreeable with this plan. - Diagnoses Provider Diagnoses: Pneumonia - Provider Notifications Discussed Care Of Patient With: Leydi Alcantara Time Discussed With Above Provider: 20:35 Instructed by Provider To: Admit As Inpatient Discharge - Sign-Out/Discharge Documenting (check all that apply): Patient Departure - Admit - Discharge Plan Condition: Fair Disposition: ADMITTED TO [facility] - Billing Disposition and Condition Condition: FAIR Disposition: Admitted to [facility] - Attestation Statements Document Initiated by Alma: Yes Documenting Scribe: Terry Islas Provider For Whom Alma is Documenting (Include Credential): Yunier Guevara MD Scribofe Attestation: Terry Griffin, scribed for Yunier Guevara MD on 06/27/18 at 0534. Scribe Documentation Reviewed: Yes Provider Attestation: The documentation as recorded by the Terry lopez accurately reflects the service I personally performed and the decisions made by Yunier pace MD Status of Scribe Document: Viewed
[2018-06-26] MEDS ORDERED: Acetaminophen TAB* 325 MG PO ONE (19:58)
[2018-06-26 20:00] LABS: INR 1.05 (0.77-1.02)
[2018-06-26 20:03] LABS: ABS Basophils 0.1 10^3/ul (0-0.2); ABS Eosinophils 0.4 10^3/ul (0-0.6); ABS Lymphocytes 0.9 10^3/ul (1.0-4.8); ABS Monocytes 0.9 10^3/ul (0-0.8); ABS Neutrophils 8.7 10^3/ul (1.5-7.7); ABS Nucleated RBC 0 10^3/ul; Eosinophil % 3.8 %; Hematocrit 31 % (35-47); Hemoglobin 10.2 g/dl (12.0-16.0); Mean Corpuscular HGB Conc 33 g/dl (31-36); Mean Corpuscular Hemoglobin 30 pg (27-31); Mean Corpuscular Volume 91 fL (80-97); Mean Platelet Volume 5.9 fL (7.4-10.4); Nucleated Red Blood Cells % 0; Platelet Count 434 10^3/ul (150-450); Red Blood Count 3.42 10^6/ul (4.00-5.40); Red Cell Distribution Width 19 % (10.5-15)
[2018-06-26 20:11] LABS: Albumin/Globulin Ratio 1.3 (1-3); BUN/Creatinine Ratio 15.7 (8-20); Calcium 9.3 mg/dL (8.6-10.3); EGFR Non-African American 64.7 (>60); Globulin 3.1 g/dL (2-4); Potassium 4.6 mmol/L (3.5-5.0); Total Bilirubin 0.3 mg/dL (0.2-1.0); Total Protein 7.1 g/dL (6.4-8.9)
[2018-06-26 21:00] LABS: Urine Appearance Clear; Urine Bacteria 1+ (Absent); Urine Bilirubin Negative (Negative); Urine Blood Negative (Negative); Urine Color Yellow; Urine Glucose Negative (Negative); Urine Ketones Negative (Negative); Urine Nitrite Negative (Negative); Urine Protein Negative (Negative); Urine Red Blood Cell Trace(0-2/hpf) (Absent); Urine Urobilinogen Negative (Negative); Urine White Blood Cell 2+(11-20/hpf) (Absent)
[2018-06-26] MEDS ORDERED: Albuterol/Ipratropium NEB.SOL* Albuterol 2.5 MG/Ipratropium 0.5 MG 3 ML INH PRN (21:24)
[2018-06-26] MEDS ORDERED: Acetaminophen TAB* 325 MG PO PRN ×2 (21:30→23:19)
[2018-06-26] MEDS ORDERED: Al Hydrox/Mg Hydrox/Simet LIQ* 30 ML UDC PO PRN (21:30)
[2018-06-26] MEDS ORDERED: NS 0.9% 1000 ML* 1,000 ML IV SCH (21:30)
[2018-06-26] MEDS ORDERED: cloNIDine 0.2 MG PATCH* 0.2 MG/24 HR 7 DAY PATCH TRANSDERM SCH (22:00)
[2018-06-26] MEDS ORDERED: Morphine VIAL* 4 MG/ML VIAL (1 ml vial) IV ONE (23:15)
[2018-06-26] MEDS ORDERED: oxyCODONE/Acetamin 5/325 MG* TAB PO PRN (23:18)
[2018-06-26] MEDS ORDERED: Acetaminophen SUPP* 650 MG SUPP PR PRN (23:19)
--- NOTE | 2018-06-26 23:36 | ADMNOTE ---
Subjective Date of Service: 06/26/18 Interval History: code staus dnr and dni but ok to have bipap/cardiac meds/ivf/abx/trial of feeding tube vs ngt this is admission h/p source daughter at bedside and from bedside in part hpi this is 88 yr old wf with hx of lymphoma breast ca osteoporosis with mulitple body part fractures just got reclast infusion 05/2018 was brought in to er with c/o fever ti 102.6 more weakness couging. as per daughter, she spiked last friday to 101.[address] Willams who was covering Dr Riley then ---> felt better afterwards. pt started to cough since fri however her weakness has been much improved until today---> generalized weakness is back + fever to 102.6 and coughing. initial wbc is only 11 with normal lactic acid chest x ray showed rml pna. pt got zosyn from er pt has chronic dsyphagia feels something stuck in her chest at times. would take her meds with banana. 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 esophageal ring vs esophageal spasm htn lymphoma myelodysplastic syndrome breast ca osteoporosis with mulitple bony fx the lumbar spines and r femur 2017 just got his first dose of reclast 05/2018---> r hip fx s/p orif 08/2017 followed by L4 fracture 02/2018 then L1 fx 04/2018 chronic pain syndrome on percocet prn due to lumbar fx b12 def pshx s/p tonsilecctomy s/p cholecystectomy s/p appy s/p hysterectomy s/p breast bx and breast lumpectomy times two. last treatment for her breast ca was 05/2016 social no cig no etoh lives with but daughter lives right behind them pt has been wheelchair bound walks min with walker/one person assist fhx mom + cad father might also has cad Family History: Unchanged from Admission Review of Systems - Measurements Intake and Output: Intake and Output Last 24 Hours 06/24/18 06/25/18 06/26/18 06/27/18 06:59 06:59 06:59 06:59 Intake Total 800 Output Total 400 Balance 400 Weight 121 lb Intake: IV Fluids 800 Output: Samuel 400 - Review of Systems General Comments: pertinent as per hpi Objective Active Medications: Acetaminophen (Tylenol Supp*) 650 mg RI Q8H PRN PRN Reason: FEVER/PAIN Acetaminophen (Tylenol Tab*) 650 mg PO Q8H PRN PRN Reason: FEVER/PAIN Al Hydrox/Mg Hydrox/Simethicone (Maalox Plus*) 10 ml PO QID PRN PRN Reason: INDIGESTION Albuterol/Ipratropium (Duoneb (Albuterol 2.5 Mg/Ipratropium 0.5 Mg)) 1 neb INH [id number] AWAKE PRN PRN Reason: sob/wheexing Amlodipine Besylate (Norvasc Tab*) 5 mg PO DAILY [facility] Ascorbic Acid (Vitamin C Tab*) 500 mg PO DAILY [facility] Cholecalciferol (Vitamin D Tab*) 2,000 units PO DAILY [facility] Clonidine HCl (Pykmygpi-Fzo-4 0.2 Mg Patch*) 0.2 mg TRANSDERM Q7D [facility] Cyanocobalamin (Vitamin B12 Tab*) 1,000 mcg PO DAILY [facility] Gabapentin (Neurontin Cap(*)) 600 mg PO TID [facility] Sodium Chloride (Ns 0.9% 1000 Ml*) 1,000 mls @ 75 mls/hr IV PER RATE [facility] Lactobacillus Rhamnosus (Lactobacillus Acidophilus*) 1 tab PO DAILY [facility] Magnesium Oxide (Magox 400 Tab*) 400 mg PO BID [facility] Non-Formulary Medication (Cranberry Conc/C/Bacill Coag [Cranberry Tablet]) 1 each PO DAILY [facility] Omeprazole (Prilosec Cap*) 40 mg PO BID [facility] Oxycodone/Acetaminophen (Percocet 5/325 Tab*) 1 tab PO Q8H PRN PRN Reason: PAIN Spironolactone (Aldactone Tab*) 25 mg PO DAILY [facility] Verapamil HCl (Calan Sr Tab*) 240 mg PO QPM [facility] Vital Signs - 8 hr 06/26/18 06/26/18 06/26/18 19:24 19:26 19:30 Temperature 100.8 F Pulse Rate 86 87 85 Respiratory 18 16 27 Rate Blood Pressure 150/80 150/80 (mmHg) O2 Sat by Pulse 95 97 96 Oximetry 06/26/18 06/26/18 06/26/18 20:00 20:48 21:00 Temperature 98.2 F Pulse Rate 80 Respiratory 16 18 Rate Blood Pressure (mmHg) O2 Sat by Pulse 96 Oximetry 06/26/18 06/26/18 06/26/18 21:05 21:35 22:00 Temperature Pulse Rate 80 81 80 Respiratory 12 21 20 Rate Blood Pressure 133/59 127/61 (mmHg) O2 Sat by Pulse 94 94 95 Oximetry 06/26/18 06/26/18 22:05 22:08 Temperature 98.6 F 98.2 F Pulse Rate 78 80 Respiratory 20 18 Rate Blood Pressure 122/50 119/57 (mmHg) O2 Sat by Pulse 93 93 Oximetry Oxygen Devices in Use Now: None Appearance: nad Eyes: No Scleral Icterus, PERRLA Ears/Nose/Mouth/Throat: NL Teeth, Lips, Gums, Clear Oropharnyx, - - oral mucosa dry Neck: NL Appearance and Movements; NL JVP, No Thyroid Enlargement, Masses Respiratory: Symmetrical Chest Expansion and Respiratory Effort, - - decreased b /s at base b/l did not appreciate any sig rales on the r side Cardiovascular: NL Sounds; No Murmurs; No JVD, RRR Abdominal: NL Sounds; No Tenderness; No Distention Extremities: - - + 1-2 pedal edema ankle to 1/2 lower leg b/l able to raise ue and le against gravity b/l Skin: No Rash or Ulcers Neurological: Alert and Oriented x 3, NL Sensation, NL Muscle Strength and Tone , - - aao times three Result Diagrams: 06/26/18 19:44 06/26/18 19:44 Microbiology and Other Data: Microbiology 06/26/18 21:45 Influenza Types A,B Antigen - Final Nasopharyngeal Specimen received for Influenza A/B Molecular testing EKG Data: ns no acute st t change Assess/Plan/Problems-Billing Assessment: this is a 88 yr old wf with sig hx of lymphoma breast ca myeloplastic syndrome sig osteoporosis with multiple body part fx in 2018 chronic indewelling samuel with urine cx + e coli/enterococcus cloace presented to er with fever increased weakess cough ---> chest x ray + rml pna pt has hx of chronic dysphagia with all kinds of food ----> would take her meds with banana ---> pt got zosyn from er - Patient Problems (1) Pneumonia Current Visit: Yes Status: Acute Code(s): J18.9 - PNEUMONIA, UNSPECIFIED ORGANISM SNOMED Code(s): 869386414 Comment: not sure she aspirated vs community acuqired pna - pt was started with zosyn - will ck sputum will also check urine for legionella ag and strep pna ag - albuterol prn - npo except meds - full swallow eval ordered for am - ? gi vs egd for eval (2) Dysphagia Current Visit: Yes Status: Acute Code(s): R13.10 - DYSPHAGIA, UNSPECIFIED SNOMED Code(s): 79094329 Comment: swallow eval (3) Osteoporosis Current Visit: Yes Status: Acute Code(s): M81.0 - AGE-RELATED OSTEOPOROSIS W /O CURRENT PATHOLOGICAL FRACTURE SNOMED Code(s): 46752591 Comment: just got reclast infusion 05/2018 (4) Chronic lumbar pain Current Visit: Yes Status: Acute Code(s): M54.5 - LOW BACK PAIN; G89.29 - OTHER CHRONIC PAIN SNOMED Code(s): 730955216 Comment: due to osteoporosis L4 and L 1 fx will continue her percocet at home (5) Lymphoma Current Visit: No Status: Acute Comment: stable (6) Breast cancer Current Visit: Yes Status: Resolved Code(s): C50.919 - MALIGNANT NEOPLASM OF UNSP SITE OF UNSPECIFIED FEMALE BREAST SNOMED Code(s): 120908949 (7) Leukocytosis Current Visit: Yes Status: Acute Code(s): D72.829 - ELEVATED WHITE BLOOD CELL COUNT, UNSPECIFIED SNOMED Code(s): 488224024 Comment: wbc 11 continue to moniter (8) Myelodysplasia (myelodysplastic syndrome) Current Visit: Yes Status: Acute Code(s): D46.9 - MYELODYSPLASTIC SYNDROME, UNSPECIFIED SNOMED Code(s): 787343407 Comment: stable (9) HTN (hypertension) Current Visit: No Status: Acute Code(s): I10 - ESSENTIAL (PRIMARY) HYPERTENSION SNOMED Code(s): 27381488 Comment: normal SBP 110s -cont verapamil, clonidine holding aldactone, norvasc (10) Hyponatremia Current Visit: No Status: Acute Code(s): E87.1 - HYPO-OSMOLALITY AND HYPONATREMIA SNOMED Code(s): 54920325 Comment: chronic with mild worsening, cont to monitor will start IVF x 24H, suspect mild hypovolemia (11) B12 deficiency Current Visit: Yes Status: Acute Code(s): E53.8 - DEFICIENCY OF OTHER SPECIFIED B GROUP VITAMINS SNOMED Code(s): 219282836 (12) Breast cancer Current Visit: Yes Status: Acute Code(s): C50.919 - MALIGNANT NEOPLASM OF UNSP SITE OF UNSPECIFIED FEMALE BREAST SNOMED Code(s): 964668139 (13) Indwelling Samuel catheter present Current Visit: Yes Status: Acute Code(s): Z96.0 - PRESENCE OF UROGENITAL IMPLANTS SNOMED Code(s): 690314507 Comment: colonized with e coli and enterococcus cloace but her ut is + on zosyn
[2018-06-27 06:57] LABS: ABS Basophils 0 10^3/ul (0-0.2); ABS Eosinophils 0.2 10^3/ul (0-0.6); ABS Lymphocytes 1.5 10^3/ul (1.0-4.8); ABS Monocytes 1.1 10^3/ul (0-0.8); ABS Neutrophils 7.4 10^3/ul (1.5-7.7); ABS Nucleated RBC 0 10^3/ul; Hematocrit 24 % (35-47); Hemoglobin 7.9 g/dl (12.0-16.0); Lymphocyte % 14.5 %; Mean Corpuscular HGB Conc 33 g/dl (31-36); Mean Corpuscular Hemoglobin 29 pg (27-31); Mean Corpuscular Volume 90 fL (80-97); Mean Platelet Volume 6.1 fL (7.4-10.4); Nucleated Red Blood Cells % 0; Platelet Count 319 10^3/ul (150-450); Red Blood Count 2.68 10^6/ul (4.00-5.40); Red Cell Distribution Width 19 % (10.5-15); White Blood Count 10.2 10^3/ul (3.5-10.8)
[2018-06-27 07:17] LABS: BUN/Creatinine Ratio 14.1 (8-20); Calcium 7.8 mg/dL (8.6-10.3); EGFR Non-African American 69.5 (>60); HDL Cholesterol 36.6 mg/dL; Magnesium 1.7 mg/dL (1.9-2.7); Phosphorus 2.5 mg/dL (2.5-5.0); Potassium 4.3 mmol/L (3.5-5.0)
[2018-06-27 07:31] LABS: TSH (Thyroid Stimulating Horm) 1.85 mcIU/mL (0.34-5.60)
[2018-06-27] MEDS: Omeprazole CAP* 20 MG PO SCH ×2 (08:22→16:12)
[2018-06-27] MEDS: Ascorbic Acid TAB* 500 MG PO SCH (08:22)
[2018-06-27] MEDS: Cyanocobalamin TAB* 500 MCG PO SCH (08:23)
[2018-06-27] MEDS: Gabapentin CAP(*) 300 MG PO SCH ×3 (08:23→19:53)
[2018-06-27] MEDS: Lactobacillus Acidophilus* 1 TAB PO SCH (08:23)
[2018-06-27] MEDS: Cholecalciferol TAB* 1000 UNITS PO SCH (08:23)
[2018-06-27] MEDS: [UNRECOGNIZED DRUG - OTHER] PO SCH (08:23)
[2018-06-27] MEDS: Magnesium Oxide TAB* 400 MG PO SCH ×2 (08:23→19:59)
[2018-06-27] MEDS ORDERED: Spironolactone TAB* 25 MG PO SCH (09:00)
[2018-06-27] MEDS ORDERED: amLODIPine TAB* 5 MG PO SCH (09:00)
[2018-06-27] MEDS ORDERED: Piperacillin/Tazobac ADVAN(*) 3.375 GM in NS 0.9% 100 ML* 100 ML IVPB ONE (09:30)
[2018-06-27 09:59] LABS: ABS Basophils 0.1 10^3/ul (0-0.2); ABS Eosinophils 0.1 10^3/ul (0-0.6); ABS Lymphocytes 1.6 10^3/ul (1.0-4.8); ABS Monocytes 1.3 10^3/ul (0-0.8); ABS Neutrophils 7.9 10^3/ul (1.5-7.7); ABS Nucleated RBC 0 10^3/ul; Eosinophil % 1.3 %; Hematocrit 25 % (35-47); Hemoglobin 7.9 g/dl (12.0-16.0); Lymphocyte % 14.5 %; Mean Corpuscular HGB Conc 32 g/dl (31-36); Mean Corpuscular Hemoglobin 29 pg (27-31); Mean Corpuscular Volume 90 fL (80-97); Mean Platelet Volume 5.9 fL (7.4-10.4); Nucleated Red Blood Cells % 0; Platelet Count 318 10^3/ul (150-450); Red Blood Count 2.78 10^6/ul (4.00-5.40); Red Cell Distribution Width 18 % (10.5-15)
[2018-06-27] MEDS ORDERED: Zosyn per Pharmacy* NOTE FOLLOW UP SCH (10:00)
[2018-06-27] MEDS ORDERED: Magnesium Sulfate IV* 3 GM in NS 0.9% 100 ML* 100 ML IVPB ONE (10:00)
[2018-06-27] MEDS: Piperacillin/Tazobac ADVAN(*) 3.375 GM in NS 0.9% 100 ML* 100 ML IVPB SCH ×2 (13:56→19:59)
--- NOTE | 2018-06-27 15:26 | PN ---
Subjective Date of Service: 06/27/18 Interval History: Pt seen and examined. Meds and labs reviewed. Pts daughter why pt did not receive abx until this AM. I explained that I am unsure why it was not part of admission orders, but told them I spoke to admitting physician who mentioned she had gotten a dose in the ED, although we would have to take a look at the records to check. Pt and family satisfied with above explanation CC: Fever and chronic back pain (not worse from baseline) ROS: Denied PEREZ/dizziness, chills, N/V, CP, SOB, increased cough, sputum production, abd pain, diarrhea, constipation, dysuria, myalgias, arthralgias, throat pain, and new skin lesions. The rest of the 14 point ROS are unremarkable. PHYSICAL EXAM: GEN APPEARANCE: Awake, not in acute distress HEENT: NC/AT, PERRLA, moist oral mucosa, (-) throat erythema NECK: Soft, supple, (-) cervical LAD, (-)JVD HEART: S1S2 WNL, RRR, No MRG CHEST: CTA, BL, GAE, No W/R/ (+)mild bibasal rochi ABD: Soft, ND/NT, NABS 4x Q EXT: No C/C/E SKIN: Warm to touch PSYCH: No active psychosis, hallucinations, depression, SI/HI Family History: Unchanged from Admission Objective Active Medications: Acetaminophen (Tylenol Supp*) 650 mg [place] Q8H PRN PRN Reason: FEVER/PAIN Acetaminophen (Tylenol Tab*) 650 mg PO Q8H PRN PRN Reason: FEVER/PAIN Al Hydrox/Mg Hydrox/Simethicone (Maalox Plus*) 10 ml PO QID PRN PRN Reason: INDIGESTION Albuterol/Ipratropium (Duoneb (Albuterol 2.5 Mg/Ipratropium 0.5 Mg)) 1 neb INH [id number] AWAKE PRN PRN Reason: sob/wheexing Ascorbic Acid (Vitamin C Tab*) 500 mg PO DAILY [facility] Last Admin: 06/27/18 08:22 Dose: Not Given Cholecalciferol (Vitamin D Tab*) 2,000 units PO DAILY [facility] Last Admin: 06/27/18 08:23 Dose: Not Given Clonidine HCl (Nshplitd-Ijh-3 0.2 Mg Patch*) 0.2 mg TRANSDERM Q7D [facility] Last Admin: 06/26/18 23:58 Dose: 0.2 mg Cyanocobalamin (Vitamin B12 Tab*) 1,000 mcg PO DAILY [facility] Last Admin: 06/27/18 08:23 Dose: Not Given Gabapentin (Neurontin Cap(*)) 600 mg PO TID [facility] Last Admin: 06/27/18 13:56 Dose: 600 mg Sodium Chloride (Ns 0.9% 1000 Ml*) 1,000 mls @ 75 mls/hr IV PER RATE [facility] Piperacillin Sod/Tazobactam (Sod 3.375 gm/ Sodium Chloride) 100 mls @ 25 mls/ hr IVPB Q8H [facility] Last Admin: 06/27/18 13:56 Dose: 25 mls/hr Azithromycin 500 mg/ Sodium (Chloride) 250 mls @ 250 mls/hr IVPB Q24H [facility] Lactobacillus Rhamnosus (Lactobacillus Acidophilus*) 1 tab PO DAILY [facility] Last Admin: 06/27/18 08:23 Dose: Not Given Magnesium Oxide (Magox 400 Tab*) 400 mg PO BID [facility] Last Admin: 06/27/18 08:23 Dose: Not Given Non-Formulary Medication (Cranberry Conc/C/Bacill Coag [Cranberry Tablet]) 1 each PO DAILY [facility] Last Admin: 06/27/18 08:23 Dose: Not Given Omeprazole (Prilosec Cap*) 40 mg PO BID AC [facility] Last Admin: 06/27/18 08:22 Dose: Not Given Oxycodone/Acetaminophen (Percocet 5/325 Tab*) 1 tab PO Q8H PRN PRN Reason: PAIN Last Admin: 06/27/18 12:43 Dose: 1 tab Pharmacy Consult (Zosyn Per Pharmacy*) 1 note FOLLOW UP .ZOSYN PER PHARMACY [facility] Verapamil HCl (Calan Sr Tab*) 240 mg PO QPM [facility] Vital Signs - 8 hr 06/27/18 06/27/18 06/27/18 07:33 07:36 08:00 Temperature 98.3 F Pulse Rate 73 Respiratory 20 16 Rate Blood Pressure 110/39 (mmHg) O2 Sat by Pulse 88 92 92 Oximetry 06/27/18 06/27/18 06/27/18 11:12 12:43 13:56 Temperature 100.2 F Pulse Rate 75 Respiratory 20 16 16 Rate Blood Pressure 132/52 (mmHg) O2 Sat by Pulse 94 Oximetry 06/27/18 15:17 Temperature Pulse Rate Respiratory 16 Rate Blood Pressure (mmHg) O2 Sat by Pulse Oximetry Oxygen Devices in Use Now: None Result Diagrams: 06/27/18 09:50 06/27/18 06:26 Microbiology and Other Data: Microbiology 06/26/18 21:45 Influenza Types A,B Antigen - Final Nasopharyngeal Specimen received for Influenza A/B Molecular testing EKG Data: ns no acute st t change Assess/Plan/Problems-Billing Assessment: this is a 88 yr old wf with sig hx of lymphoma breast ca myeloplastic syndrome sig osteoporosis with multiple body part fx in 2018 chronic indewelling samuel with urine cx + e coli/enterococcus cloace presented to er with fever increased weakess cough ---> chest x ray + rml pna pt has hx of chronic dysphagia with all kinds of food ----> would take her meds with banana ---> pt got zosyn from er - Patient Problems (1) Pneumonia Current Visit: Yes Status: Acute Code(s): J18.9 - PNEUMONIA, UNSPECIFIED ORGANISM SNOMED Code(s): 769303011 Comment: -Thought to be due to aspiration given her known dysphagia -(-)Legionella and S. pneumo urine Ag -Rapid influenza screen (-)---pt denies any myalgias nor arthralgias and unlikely due to flu -Will add azithromycin to cover for atypicals -Given qSOFA =[address] and [address] reactive air way symptoms at this time, will hold off on steroids (2) Dysphagia Current Visit: Yes Status: Acute Code(s): R13.10 - DYSPHAGIA, UNSPECIFIED SNOMED Code(s): 91143815 Comment: -Passed bed-side swallow, thus, will place pt on modified diet until pt can be seen formally by speech therapist (3) Anemia Current Visit: Yes Status: Acute Code(s): D64.9 - ANEMIA, UNSPECIFIED SNOMED Code(s): 246033249 Comment: -There was a mild drop of her H&H and likely due to hemodilution after fluid resuscitation -Check iron studies, B12, folate, and MMA levels along w/repeat CBC at 1999 -No reports of bleeding anywhere and pt hemodynamically stable (4) Chronic lumbar pain Current Visit: Yes Status: Acute Code(s): M54.5 - LOW BACK PAIN; G89.29 - OTHER CHRONIC PAIN SNOMED Code(s): 629774874 Comment: -Continue PRN Percocet (5) Osteoporosis Current Visit: Yes Status: Acute Code(s): M81.0 - AGE-RELATED OSTEOPOROSIS W /O CURRENT PATHOLOGICAL FRACTURE SNOMED Code(s): 82825539 Comment: -Defer w/PCP/Computer Repairer as outpatient (6) Lymphoma Current Visit: No Status: Acute Comment: -Defer w/Oncologist as outpt to follow (7) DVT prophylaxis Current Visit: No Status: Acute Code(s): VMS9306 - SNOMED Code(s): 692477581 Comment: -Placed on SCD for now but if H&H remains stable, would require pharmacologic prophylaxis -Repeat CBC at 1999 Status and Disposition: -As above
[2018-06-27] MEDS: Azithromycin IV(*) 500 MG in NS 0.9% 250 ML* 250 ML IVPB SCH (17:53)
[2018-06-27] MEDS ORDERED: Verapamil SR TAB* 240 MG PO SCH (18:00)
[2018-06-27 20:26] LABS: Hematocrit 26 % (35-47); Hemoglobin 8.5 g/dl (12.0-16.0); Mean Corpuscular HGB Conc 32 g/dl (31-36); Mean Corpuscular Hemoglobin 29 pg (27-31); Mean Corpuscular Volume 91 fL (80-97); Mean Platelet Volume 5.8 fL (7.4-10.4); Platelet Count 320 10^3/ul (150-450); Red Cell Distribution Width 18 % (10.5-15); White Blood Count 10.6 10^3/ul (3.5-10.8)
[2018-06-27 20:28] LABS: ABS Basophils 0 10^3/ul (0-0.2); ABS Eosinophils 0 10^3/ul (0-0.6); ABS Lymphocytes 1.6 10^3/ul (1.0-4.8); ABS Monocytes 1.6 10^3/ul (0-0.8); ABS Neutrophils 7.4 10^3/ul (1.5-7.7); ABS Nucleated RBC 0 10^3/ul; Eosinophil % 0.3 %; Lymphocyte % 14.8 %; Nucleated Red Blood Cells % 0
[2018-06-27 20:52] LABS: Total Iron Binding Capacity 234 mcg/dL (250-450); Transferrin 167 mg/dL (203-362)
[2018-06-27 20:53] LABS: Iron < 15 ug/dL (50-212)
[2018-06-27 21:14] LABS: Ferritin 768.8 ng/mL (11-307)
[2018-06-27 21:17] LABS: Folate 12.86 ng/mL (>3.99)
--- NOTE | 2018-06-27 21:24 | PN ---
Hospitalist Progress Note Date of Service: 06/27/18 got called her hr dipped down to 50s ---> will decrease his cardiazem from 240 mg to 180 mg daily ( will get that at 1800 pm ) last dose of percocet was 1400 pm
[2018-06-28] MEDS: Piperacillin/Tazobac ADVAN(*) 3.375 GM in NS 0.9% 100 ML* 100 ML IVPB SCH (05:02)
[2018-06-28] MEDS: Gabapentin CAP(*) 300 MG PO SCH ×3 (10:16→20:57)
[2018-06-28] MEDS: Lactobacillus Acidophilus* 1 TAB PO SCH (10:16)
[2018-06-28] MEDS: Cholecalciferol TAB* 1000 UNITS PO SCH (10:16)
[2018-06-28] MEDS: Ascorbic Acid TAB* 500 MG PO SCH (10:16)
[2018-06-28] MEDS: Magnesium Oxide TAB* 400 MG PO SCH ×2 (10:16→20:57)
[2018-06-28] MEDS: Cyanocobalamin TAB* 500 MCG PO SCH (10:16)
[2018-06-28] MEDS: [UNRECOGNIZED DRUG - OTHER] PO SCH (10:17)
[2018-06-28] MEDS: Omeprazole CAP* 20 MG PO SCH ×2 (11:22→17:59)
[2018-06-28] MEDS ORDERED: Cefepime 2 GM in Dextrose(*) 2 GM/50 ML BAG IV SCH (12:00)
--- NOTE | 2018-06-28 12:17 | PN ---
Subjective Date of Service: 06/28/18 Interval History: Seen with daughter and at bedside Minimal cough, improving, no SOB Feels energy improving Wants to be OOB at least to chair No other complaints Family History: Unchanged from Admission Objective Active Medications: Acetaminophen (Tylenol Supp*) 650 mg SD Q8H PRN PRN Reason: FEVER/PAIN Acetaminophen (Tylenol Tab*) 650 mg PO Q8H PRN PRN Reason: FEVER/PAIN Al Hydrox/Mg Hydrox/Simethicone (Maalox Plus*) 10 ml PO QID PRN PRN Reason: INDIGESTION Albuterol/Ipratropium (Duoneb (Albuterol 2.5 Mg/Ipratropium 0.5 Mg)) 1 neb INH [id number] AWAKE PRN PRN Reason: sob/wheexing Ascorbic Acid (Vitamin C Tab*) 500 mg PO DAILY COUNT INCLUDES THE [facility] Last Admin: 06/28/18 10:16 Dose: 500 mg Cholecalciferol (Vitamin D Tab*) 2,000 units PO DAILY COUNT INCLUDES THE [facility] Last Admin: 06/28/18 10:16 Dose: 2,000 units Clonidine HCl (Bntqfirz-Adw-3 0.2 Mg Patch*) 0.2 mg TRANSDERM Q7D COUNT INCLUDES THE [facility] Last Admin: 06/26/18 23:58 Dose: 0.2 mg Cyanocobalamin (Vitamin B12 Tab*) 1,000 mcg PO DAILY COUNT INCLUDES THE [facility] Last Admin: 06/28/18 10:16 Dose: 1,000 mcg Gabapentin (Neurontin Cap(*)) 600 mg PO TID COUNT INCLUDES THE [facility] Last Admin: 06/28/18 10:16 Dose: 600 mg Azithromycin 500 mg/ Sodium (Chloride) 250 mls @ 250 mls/hr IVPB Q24H COUNT INCLUDES THE [facility] Last Admin: 06/27/18 17:53 Dose: 250 mls/hr Cefepime HCl (Maxipime 1 Gm In Dextrose Duplex (*)) 1 gm in 50 mls @ 100 mls/ hr IV Q12H COUNT INCLUDES THE [facility] Lactobacillus Rhamnosus (Lactobacillus Acidophilus*) 1 tab PO DAILY COUNT INCLUDES THE [facility] Last Admin: 06/28/18 10:16 Dose: 1 tab Magnesium Oxide (Magox 400 Tab*) 400 mg PO BID COUNT INCLUDES THE [facility] Last Admin: 06/28/18 10:16 Dose: 400 mg Non-Formulary Medication (Cranberry Conc/C/Bacill Coag [Cranberry Tablet]) 1 each PO DAILY COUNT INCLUDES THE [facility] Last Admin: 06/28/18 10:17 Dose: Not Given Omeprazole (Prilosec Cap*) 40 mg PO BID AC COUNT INCLUDES THE [facility] Last Admin: 06/28/18 11:22 Dose: 40 mg Oxycodone/Acetaminophen (Percocet 5/325 Tab*) 1 tab PO Q8H PRN PRN Reason: PAIN Last Admin: 06/27/18 12:43 Dose: 1 tab Verapamil HCl (Calan Sr Cap*) 180 mg PO QPM COUNT INCLUDES THE [facility] Vital Signs - 8 hr 06/28/18 06/28/18 06/28/18 07:39 08:00 10:16 Temperature 99.4 F Pulse Rate 58 Respiratory 28 20 20 Rate Blood Pressure 101/34 (mmHg) O2 Sat by Pulse 95 92 Oximetry 06/28/18 11:54 Temperature 98.2 F Pulse Rate 56 Respiratory 18 Rate Blood Pressure 106/41 (mmHg) O2 Sat by Pulse 98 Oximetry Oxygen Devices in Use Now: Nasal Cannula - 1L 96% Appearance: stated age, AD Eyes: No Scleral Icterus Ears/Nose/Mouth/Throat: NL Teeth, Lips, Gums, Clear Oropharnyx Neck: NL Appearance and Movements; NL JVP, Trachea Midline Respiratory: - - rales right base up 1/2 Cardiovascular: NL Sounds; No Murmurs; No JVD, RRR Abdominal: NL Sounds; No Tenderness; No Distention, No Hepatosplenomegaly Lymphatic: No Cervical Adenopathy Skin: No Rash or Ulcers Neurological: Alert and Oriented x 3 Result Diagrams: 06/27/18 20:10 06/27/18 06:26 Microbiology and Other Data: Microbiology 06/26/18 21:45 Influenza Types A,B Antigen - Final Nasopharyngeal Specimen received for Influenza A/B Molecular testing EKG Data: ns no acute st t change Assess/Plan/Problems-Billing Assessment: 88 yo F h/o of lymphoma, breast ca, myeloplastic syndrome, sig osteoporosis with multiple body part fx in 2018, chronic indewelling samuel with urine cx + e coli/enterococcus cloace presented to er with fever increased weakness cough found witrh rml pna - Patient Problems (1) Pneumonia Comment: -Thought to be due to aspiration given her known dysphagia -(-)Legionella and S. pneumo urine Ag -c/w azithromycin, change zosyn to cefepime -titrate oxygen -mobilize OOB -incentive spirometry (2) Indwelling Samuel catheter present Comment: colonized with e coli and enterococcus cloace cefepime will cover pathogen in urine (3) UTI (urinary tract infection) Comment: change zosyn to cefepime to cover pathogen (4) Chronic lumbar pain Comment: -Continue PRN Percocet (5) DVT prophylaxis Comment: HSQ Status and Disposition: -As above
[2018-06-28] MEDS: Cefepime 1 GM in Dextrose(*) 1 GM/50 ML q12h (Duplex) IV SCH (13:16)
[2018-06-28] MEDS: Heparin VIAL(*) 5000 UNITS/ML VIAL (FIVE THOUSAND) SUBCUT SCH ×2 (13:17→20:58)
[2018-06-28] MEDS: Azithromycin IV(*) 500 MG in NS 0.9% 250 ML* 250 ML IVPB SCH (16:13)
[2018-06-28] MEDS ORDERED: Verapamil SR CAP* 180 MG PO SCH (18:00)
[2018-06-29] MEDS: Cefepime 1 GM in Dextrose(*) 1 GM/50 ML q12h (Duplex) IV SCH ×2 (00:23→12:00)
[2018-06-29] MEDS: Heparin VIAL(*) 5000 UNITS/ML VIAL (FIVE THOUSAND) SUBCUT SCH (05:54)
[2018-06-29] MEDS: Gabapentin CAP(*) 300 MG PO SCH (08:37)
[2018-06-29] MEDS: Omeprazole CAP* 20 MG PO SCH (08:38)
[2018-06-29] MEDS: Magnesium Oxide TAB* 400 MG PO SCH (08:38)
[2018-06-29] MEDS: Cyanocobalamin TAB* 500 MCG PO SCH (08:38)
[2018-06-29] MEDS: Ascorbic Acid TAB* 500 MG PO SCH (08:38)
[2018-06-29] MEDS: Cholecalciferol TAB* 1000 UNITS PO SCH (08:38)
[2018-06-29] MEDS: Lactobacillus Acidophilus* 1 TAB PO SCH (08:38)
[2018-06-29] MEDS: [UNRECOGNIZED DRUG - OTHER] PO SCH (08:39)
[2018-06-29 12:12] VITALS: BP 130/52
--- NOTE | 2018-06-30 14:08 | DS ---
CC: Dr. Riley.* DISCHARGE SUMMARY: DATE OF ADMISSION: 06/26/18 DATE OF DISCHARGE: 06/29/18 PRIMARY CARE PROVIDER: Julita Riley MD. PRIMARY DIAGNOSIS: Pneumonia. SECONDARY DIAGNOSES: Include: 1. Possible urinary tract infection/bladder colonization with chronic indwelling Zheng catheter. 2. Chronic lumbar pain. 3. Chronic dysphagia. 4. History of lymphoma. 5. Myelodysplastic syndrome. 6. Osteoporosis. MEDICATIONS ON DISCHARGE: Include: 1. Vitamin B12 1000 mcg daily. 2. Vitamin D 2000 units daily. 3. Omeprazole 40 mg twice daily. 4. Magnesium oxide 400 mg twice daily. 5. Probiotic 1 cap daily. 6. Gabapentin 600 mg 3 times daily. 7. Vitamin C 500 mg daily. 8. Mylanta 10 mL 4 times a day as needed. 9. Cranberry tablet 1 each daily. 10. Acetaminophen 1000 mg 3 times a day as needed. 11. Clonidine 0.2 mg patch, change every 7 days. 12. Verapamil SR 240 mg daily. 13. Completion of the Z-TOI as well as Augmentin 875 mg twice daily. PERTINENT LABORATORY DATA: White blood cell count on presentation 11 and on discharge 10.6. Rapid influenza is negative. T-max was 101.4. HISTORY OF PRESENT ILLNESS AND HOSPITAL COURSE: This is an 88-year-old female with past medical history as outlined in the history of present illness on the day of admission, who presented to the hospital with worsening fever. Her chest x-ray notable for right middle lobe pneumonia, started on Zosyn in the emergency room. Now it is Augmentin on the day of discharge. The patient required oxygen during the course of hospital stay, decreased to room day prior to discharge. The patient is not ambulatory at the baseline; although, she sometimes does ambulate with the walker with a wheelchair behind her in order to get some exercise with the assistance of her family. She has a chronic indwelling Zheng catheter which did grow Enterobacter cloacae complex sensitive to cefepime. Her Zosyn was transitioned to cefepime in order to treat both possible pneumonia as well as possible urinary tract infection, although the etiology of her presentation was thought to be secondary to her pneumonia and not her urine in the setting of chronic indwelling Zheng as well as her hypoxic respiratory failure and need for oxygen. On the day of discharge, the patient felt back to her baseline. Continue antibiotics for a total of 10 days. There were no complications during the course of hospital stay. Followup, please; 1. Should the patient continue to feel improved and has no other symptoms of ongoing infection. 2. Evaluate continued blood pressure control. Please note, Aldactone as well as Norvasc were held during hospital stay secondary to normotension in the absence of their administration. 3. No other specific labs or vitals that need followup. Reasons to return to the hospital including, but not limited to recurrent or worsening symptoms including shortness of breath, chest pain, nausea, vomiting, lightheadedness, loss of consciousness including continued fevers or high fever , inability to obtain or tolerate medications or food, discussed with the patient. She acknowledged the understanding. TIME SPENT: Greater than 60 minutes was spent on the discharge of this patient , greater than half was spent [id number] with the patient. [id number]/CPS #: [id number] FIORDALIZA
== END 2018-06-29 13:49 | disposition home or self-care (01) | DRG 194 ==
LOC: ED 19:22 → MEDTELE 21:24
PROVIDERS: ADMIT Internal Medicine; ATTEND Internal Medicine
DX: J18.9 Pneumonia, unspecified organism (principal); T83.511A Infection and inflammatory reaction due to indwelling urethral catheter, initial encounter; N39.0 Urinary tract infection, site not specified; J96.11 Chronic respiratory failure with hypoxia; E87.1 Hypo-osmolality and hyponatremia; B96.89 Other specified bacterial agents as the cause of diseases classified elsewhere; R13.10 Dysphagia, unspecified; D46.9 Myelodysplastic syndrome, unspecified; M81.0 Age-related osteoporosis without current pathological fracture; Z66 Do not resuscitate; I10 Essential (primary) hypertension; E53.8 Deficiency of other specified B group vitamins; Z99.3 Dependence on wheelchair; Z85.72 Personal history of non-Hodgkin lymphomas; Z85.3 Personal history of malignant neoplasm of breast; Z82.49 Family history of ischemic heart disease and other diseases of the circulatory system; Z79.1 Long term (current) use of non-steroidal anti-inflammatories (NSAID); Z79.891 Long term (current) use of opiate analgesic; Z79.899 Other long term (current) drug therapy
CPT/HCPCS: 36415; 71046; 80048; 80053; 80061; 81003; 81015; 82607; 82728; 82746; 83540; 83550; 83605; 83735; 83921; 84100; 84443; 84484; 85025; 85610; 87040; 87077; 87086; 87186; 87641; 87899; 93005; 99285; A9270-GY; G8978-GP-CM; G8979-GP-CM; G8980-GP-CM; J0456; J0692; J1644; J2270; J2543; J3475

== ENCOUNTER 2018-11-21 21:11 | Inpatient (IN) | payer MEDICARE, BC ==
[2018-11-21 22:06] LABS: Urine Appearance Cloudy; Urine Bacteria 1+ (Absent); Urine Bilirubin Negative (Negative); Urine Blood Negative (Negative); Urine Color Yellow; Urine Glucose Negative (Negative); Urine Ketones Negative (Negative); Urine Nitrite Positive (Negative); Urine Protein Negative (Negative); Urine Red Blood Cell Trace(0-2/hpf) (Absent); Urine Specific Gravity 1.016 (1.010-1.030); Urine Squamous Epithelial Cell Present (Absent); Urine Urobilinogen Negative (Negative); Urine White Blood Cell 3+(>20/hpf) (Absent)
[2018-11-22] MEDS ORDERED: NS 0.9% 1000 ML** 1,000 ML IV.FLUID IV ONE (00:16)
[2018-11-22] MEDS ORDERED: Acetaminophen TAB* 325 MG PO ONE (00:21)
--- NOTE | 2018-11-22 00:24 | ED ---
HPI Febrile Illness - HPI Summary HPI Summary: Pt is an 88 y/o F presenting to the ED with a chief complaint of a fever onset a couple of days ago. Per the pts daughter, she has had a fever, cough, wheezing, and one episode of emesis over the past few days. She has also been fatigued and quite somnolent, but does not have a decreased appetite. - History of Current Complaint Chief Complaint: EDFever Time Seen by Provider: 11/22/18 00:13 Hx Obtained From: Patient, Family/Bog Cutter - daughter Onset/Duration: Started Days Ago, Still Present Timing: Constant, Lasting Days Initial Severity: Mild Current Severity: None Pain Intensity: 0 Pain Scale Used: 0-10 Numeric Aggravating Factors: Nothing Alleviating Factors: Nothing Associated Signs and Symptoms: Cough, Vomiting, Other: - fatigue - Additional Pertinent History Primary Care Physician: DENNIS - Allergy/Home Medications Allergies/Adverse Reactions: Allergies Allergy/AdvReac Type Severity Reaction Status Date / Time Iodinated Contrast- Oral and Allergy Hives Verified 11/22/18 05:33 IV Dye Sulfa (Sulfonamide Allergy Weakness Verified 11/22/18 05:33 Antibiotics) Tetanus Vaccines and Toxoid Allergy Swelling Verified 11/22/18 05:33 thiopental Allergy Unknown Verified 11/22/18 05:33 Reaction Details valsartan [From Diovan] Allergy abnormal Verified 11/22/18 05:33 labs enalaprilat [From Vasotec] AdvReac Coughing Verified 11/22/18 05:33 iv dye Allergy Hives Uncoded 11/22/18 05:33 sodium pentathol AdvReac Mild weakness Uncoded 11/22/18 05:33 PMH/Surg Hx/FS Hx/Imm Hx Previously Healthy: No Endocrine/Hematology History: Reports: Hx Blood Transfusions - 45 UNITS PRBC & 16 UNITS PLATELETS TOTAL HX, Hx Bone Marrow Disease - MYELODYSPLASIA, Hx Anemia Denies: Hx Diabetes, Hx Thyroid Disease Cardiovascular History: Reports: Hx Angina, Hx Coronary Artery Disease, Hx Hypercholesterolemia, Hx Hypertension Denies: Hx Congestive Heart Failure, Hx Myocardial Infarction, Hx Pacemaker/ ICD, Other Cardiovascular Problems/Disorders Respiratory History: Denies: Hx Asthma - NOT SINCE ADULTHOOD, Hx Chronic Obstructive Pulmonary Disease (COPD), Other Respiratory Problems/Disorders GI History: Reports: Hx Gall Bladder Disease - HAD JULIETTE, Hx Gastroesophageal Reflux Disease - ON MEDICATION FOR, Hx Irritable Bowel, Other GI Disorders - COLITIS AT TIMES Denies: Hx Hiatal Hernia, Hx Ulcer History: Denies: Other Problems/Disorders Musculoskeletal History: Reports: Hx Arthritis - HANDS, BACK, Hx Back Problems - vertebral body compression fractures, Hx Gout - X1, Hx Tendonitis - LEFT ANKLE , Other Musculoskeletal History - JAW PAIN-ARTHRITIS PER PATIENT Denies: Hx Osteoporosis Sensory History: Reports: Hx Cataracts, Hx Contacts or Glasses, Hx Vision Problem, Hx Hearing Aid, Hx Hearing Problem Denies: Hx Glaucoma Opthamlomology History: Reports: Hx Cataracts, Hx Contacts or Glasses, Hx Vision Problem Denies: Hx Glaucoma Neurological History: Reports: Hx Nerve Disease - NEUROPATHY Denies: Hx Dementia, Other Neuro Impairments/Disorders Psychiatric History: Denies: Hx Panic Disorder - Cancer History Cancer Type, 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) Hx Chemotherapy: Yes - [id number] Hx Radiation Therapy: No Hx Palliative Cancer Treatment: Yes - LUMPECTOMY - Surgical History Surgery Procedure, Year, and Place: femur fracture august 2017 Hx Anesthesia Reactions: Yes - NAUSEA AND VOMITING - Immunization History Date of Tetanus Vaccine: allergic Date of Influenza Vaccine: 2016 Infectious Disease History: No Infectious Disease History: Reports: Hx Shingles Denies: Hx Clostridium Difficile, Hx Hepatitis, Hx Human Immunodeficiency Virus (HIV), Hx of Known/Suspected MRSA, Hx Tuberculosis, Hx Known/Suspected VRE , Hx Known/Suspected VRSA, History Other Infectious Disease, Traveled Outside the [place] in Last 30 Days - Family History Known Family History: Positive: Hypertension - Social History Alcohol Use: None Hx Substance Use: No Substance Use Type: Reports: None Hx Tobacco Use: No Smoking Status (MU): Never Smoked Tobacco Review of Systems Positive: Fever, Fatigue. Negative: Other - decreased appetite Positive: Cough, Other - wheezing Positive: Vomiting All Other Systems Reviewed And Are Negative: Yes Physical Exam - Summary Physical Exam Summary: Appearance: Ill-appearing elderly woman who is somewhat lethargic but arouses easily to voice. Skin: Warm, dry, no obvious rash Eyes: sclera anicteric, no conjunctival pallor ENT: mucous membranes moist, pharynx appears normal Neck: Supple, nontender Respiratory: Coarse crackles in the R base, no signs of respiratory distress Cardiovascular: Normal S1, S2. No murmurs. Normal distal pulses in tibial and radial bilaterally. Abdomen: Soft, nontender, normal active bowel sounds present Musculoskeletal: Normal, Strength/ROM Intact Neurological: A&Ox3, awake and alert, mentation is normal, speech is fluent and appropriate Psychiatric: affect is normal, does not appear anxious or depressed Triage Information Reviewed: Yes Vital Signs On Initial Exam: Initial Vitals Temp Pulse Resp BP Pulse Ox 101.1 F 70 16 119/60 88 11/21/18 21:22 11/21/18 21:22 11/21/18 21:22 11/21/18 21:22 11/21/18 21:22 Vital Signs Reviewed: Yes Diagnostics - Vital Signs Vital Signs Temp Pulse Resp BP Pulse Ox 11/21/18 21:22 101.1 F 70 16 119/60 88 - Laboratory Lab Results: Lab Results 11/21/18 Range/Units 21:53 Urine Color Yellow Urine Appearance Cloudy Urine pH 6.0 (5-9) Ur Specific [place] 1.016 (1.010-1.030) Urine Protein Negative (Negative) Urine Ketones Negative (Negative) Urine Blood Negative (Negative) Urine Nitrate Positive A (Negative) Urine Bilirubin Negative (Negative) Urine Urobilinogen Negative (Negative) Ur Leukocyte Esterase Trace A (Negative) Urine WBC (Auto) 3+(>20/hpf) A (Absent) Urine RBC (Auto) Trace(0-2/hpf) (Absent) Ur Squamous Epith Cells Present A (Absent) Urine Bacteria 1+ A (Absent) Urine Glucose Negative (Negative) Urine Ascorbic Acid * A (Negative) Result Diagrams: 11/22/18 00:49 11/22/18 11:51 Lab Statement: Any lab studies that have been ordered have been reviewed, and results considered in the medical decision making process. - Radiology CXR Radiology Interpretation Completed By: ED Physician Summary of Radiographic Findings: No acute process. Pending official radiology report. Course/Dx - Course Course Of Treatment: Pt is an 88 y/o F presenting to the ED with a chief complaint of a fever onset a couple of days ago. Per the pts daughter, she has had a fever, cough, wheezing, and one episode of emesis over the past few days. She has also been fatigued and quite somnolent, but does not have a decreased appetite. On physical exam, the pt is an ill-appearing elderly woman who appears somewhat lethargic but is easily rousable to voice. She has coarse crackles in her R lung base, but she is otherwise normal. Pts hematology shows Hgb of 11.7, RDW of 18, MPV of 6.3, and absolute lymphs of 0.7. Her chemistry shows a Sodium level of 125, Chloride level of 92, Creatinine level of 1.13, ALT of 56, Alkaline Phosphate of 111, and an initial troponin of 0.02. Her urine is positive for nitrate, containes trace leukocyte esterase, 3+ WBC, squamous epithelial cells, and 1+ bacteria. CXR shows no acute process. I spoke with Dr. Ritter at [id number] who will be accepting the pt to [facility] with a dx of fever. - Diagnoses Provider Diagnoses: Fever Discharge - Sign-Out/Discharge Documenting (check all that apply): Patient Departure Patient Received Moderate/Deep Sedation with Procedure: No - Discharge Plan Condition: Stable Disposition: ADMITTED TO [facility] - Billing Disposition and Condition Condition: STABLE Disposition: Admitted to [facility] - Attestation Statements Document Initiated by Nicoleibe: Yes Documenting Scribe: Nelly Bailey Provider For Whom Alma is Documenting (Include Credential): Yunier Guevara MD. Scribe Attestation: INelly, cristinaed for Yunier Guevara MD. on 11/25/18 at 0442. Scribe Documentation Reviewed: Yes Provider Attestation: The documentation as recorded by the scribeNelly accurately reflects the service I personally performed and the decisions made by me, Yunier Guevara MD. Status of Scribe Document: Viewed Consult Consult: [id number] - I spoke with Dr. Ritter who will be accepting the pt to [facility] with a dx of fever.
[2018-11-22 01:05] LABS: ABS Lymphocytes 0.7 10^3/ul (1.0-4.8); ABS Monocytes 0.4 10^3/ul (0-0.8); ABS Neutrophils 5.1 10^3/ul (1.5-7.7); Eosinophil % 0.4 %; Hematocrit 36 % (35-47); Hemoglobin 11.7 g/dL (12.0-16.0); Lymphocyte % 11.2 %; Mean Corpuscular HGB Conc 33 g/dL (31-36); Mean Corpuscular Hemoglobin 30 pg (27-31); Mean Corpuscular Volume 91 fL (80-97); Mean Platelet Volume 6.3 fL (7.4-10.4); Nucleated Red Blood Cells % 0.1; Platelet Count 185 10^3/uL (150-450); Red Blood Count 3.94 10^6 /uL (3.70-4.87); Red Cell Distribution Width 18 % (10.5-15); White Blood Count 6.2 10^3/uL (3.5-10.8)
[2018-11-22 01:07] LABS: INR 1.01 (0.82-1.09)
[2018-11-22 01:17] LABS: Albumin 4.5 g/dL (3.2-5.2); Albumin/Globulin Ratio 1.5 (1-3); BUN/Creatinine Ratio 16.8 (8-20); Calcium 9.3 mg/dL (8.6-10.3); EGFR African American 54.9 (>60); EGFR Non-African American 45.3 (>60); Globulin 3.1 g/dL (2-4); Potassium 4.7 mmol/L (3.5-5.0); Total Bilirubin 0.6 mg/dL (0.2-1.0); Total Protein 7.6 g/dL (6.4-8.9)
[2018-11-22 01:19] LABS: Troponin I 0.02 ng/mL (<0.04)
[2018-11-22] MEDS ORDERED: cefTRIAXone(*) 1 GM in NS 0.9% 50 ML* 50 ML IVPB ONE (03:55)
[2018-11-22] MEDS ORDERED: Acetaminophen TAB* 325 MG PO PRN (04:41)
[2018-11-22] MEDS ORDERED: Azithromycin 500 mg/250 ml NS 500 MG/250 ML BAG IVPB ONE (05:00)
[2018-11-22] MEDS ORDERED: cloNIDine 0.2 MG PATCH* 0.2 MG/24 HR 7 DAY PATCH TRANSDERM SCH (06:00)
[2018-11-22] MEDS: Magnesium Oxide TAB* 400 MG PO SCH ×2 (07:48→21:43)
--- NOTE | 2018-11-22 08:14 | HP ---
CC: Julita Riley MD HISTORY AND PHYSICAL: DATE OF ADMISSION: 11/22/18 PRIMARY CARE PHYSICIAN: Julita Riley MD HEALTHCARE PROXIES: Her daughters, Anna and Di. SOURCE: History obtained from the patient and her daughter Anna at bedside. CODE STATUS: DNR/DNI. CHIEF COMPLAINT: Fevers and tiredness for 2 days. HISTORY OF PRESENT ILLNESS: Ms. 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 Patient and her daughter report that the patient began having low-grade fevers at home approximately 2 days ago up to 100 or 101, which progressed until the day of presentation with T-max measured at 103.5. The fever was associated with a new cough productive of whitish sputum as well as profound tiredness. The daughter states that her mom usually can walk around for very short distances in a walker but recently has barely walked at all in her walker and has mostly moved around with her wheelchair. She also reported significant tiredness, feeling like she could sleep at anytime. The daughter also noted that her mother had foul-smelling urine around the start of these symptoms and talked to the patient's primary care physician, who recommended to start cephalexin and to present to the emergency room if she did not improve or was to have an altered mental status. The patient denies chest pain, shortness of breath, myalgias, but she does report chills in association with her fever. She reports an episode of emesis once after taking cephalexin but otherwise has not had nausea or vomiting. She denies constipation and reports chronic diarrhea from IBS at baseline without change recently. A complete 10-point review of systems was performed and pertinent positives and negatives are listed in this HPI. In the emergency room, the patient was noted to have coarse crackles over her right lung base but otherwise a nonfocal physical exam. Her sodium was 125, which is frequently her level during the hospitalization. Her UA was concerning for infection and her chest x-ray was without an acute process. She was admitted to the hospitalist service for profound tiredness, IV antibiotics, and ongoing workup of her fever. PAST MEDICAL HISTORY: 1. Hypertension. 2. Chronic indwelling Zheng. 3. Peripheral neuropathy and chronic pain from multiple bony fractures in her spine. 4. Lymphoma, in remission since 2008. 5. Myelodysplastic syndrome, last chemo 2009. 6. Left-sided breast cancer, status post lumpectomy 2012. 7. Esophageal spasms. 8. Irritable bowel. 9. Osteoporosis. HOME MEDICATIONS: 1. Tamoxifen 20 mg daily. 2. Verapamil ER 240 mg nightly. 3. Amlodipine 5 mg daily. 4. Omeprazole 40 mg twice a day. 5. Gabapentin 600 mg 3 times a day. 6. Clonidine 0.2 mg patch weekly. 7. Melatonin 3 mg nightly as needed. 8. B12 1000 mcg daily. 9. Vitamin D3 2000 units daily. 10. Mylanta as needed for gas pain. 11. Tylenol Extra Strength as needed for pain. 12. Magnesium oxide 400 mg twice a day. 13. Vitamin C 500 mg daily. 14. Cranberry supplement daily. 15. Probiotic supplement daily. 16. Last Reclast infusion May 2018. ALLERGIES: Please see chart. SOCIAL HISTORY: The patient lives with her , who has dementia, and a caregiver who is present during the day. Her daughter Anna stays with her at night. 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 She is a never smoker, alcohol or other drug user. Her healthcare proxies are her daughters Anna and Di. Anna's number is [phone]. Her is Irving Ventura. PHYSICAL EXAMINATION GENERAL: She is a frail, elderly appearing woman in no acute distress. Very sleepy but easily arousable to voice. Very pleasant. Appropriate responses to questions. VITAL SIGNS: T-max 101.1, heart rate 50s, blood pressure 134/54, respiratory rate 16, oxygen saturation 95% on 1 L. HEENT: Mucous membranes moist. OP clear. NECK: Supple. Full range of motion intact. RESPIRATORY: Coarse crackles on right lung base. No decreased breath sounds or wheezes. CARDIOVASCULAR: Regular rate and rhythm. No murmurs, gallops, or rubs. ABDOMEN: Soft, nontender, and nondistended. No suprapubic tenderness. EXTREMITIES: Lower extremities warm and well perfused without edema. NEUROLOGIC: A and O x3. Speech fluent. Answers appropriate. DIAGNOSTIC STUDIES/LAB DATA: Labs reviewed and significant for hemoglobin 11.7, normocytic, above baseline. Sodium 125, chloride 92. Creatinine 1.13, elevated from baseline of 0.7. Lactate negative. Troponin negative. UA positive for nitrites and leuk esterase, 3+ wbc's, 1+ bacteria. CXR without acute cardiopulmonary process, although increased markings over right lung base, pending official radiology read. ASSESSMENT AND PLAN: Ms. Ventura is an 88-year-old pleasant woman with a history of hypertension, multiple cancers, osteoporosis, falls, and chronic pain , who is presenting from home with fevers in the setting of new cough and malodorous urine, who was found to have new oxygen requirements and crackles at the right lung base. 1. Fever. Largest concern at this point is for a new pneumonia given new onset of cough and the patient found with crackles on exam and new oxygen requirements. For now, we will cover the patient for community acquired pneumonia with ceftriaxone and azithromycin. We will follow up blood cultures and urine antigens for Streptococcus pneumoniae and legionella. Monitor respiratory status. 2. Malodorous urine with UA concerning for infection. The patient does have a chronic indwelling Zheng with a history of colonization with Escherichia coli and enterococcus. She did take approximately 2 doses of first generation cephalosporin from her primary care physician before presentation. Urine culture has been sent. Of note, she has had urine cultures in the past, such as most recent Enterobacter cloacae in May 2018, that are resistant to ceftriaxone, so we will broaden antibiotics if the patient's status does not improve. 3. Hypertension. Can continue the patient's home verapamil, amlodipine, and clonidine patch. 4. History of breast cancer. Can continue the patient's tamoxifen 20 mg daily. 5. Heartburn. Continue omeprazole 40 mg twice a day. 6. Chronic pain. Decrease gabapentin to 300 twice daily given somnolence. Continue Tylenol as needed for pain. 7. Osteoporosis - defer management to PCP. 8. DVT prophylaxis: We will initiate Lovenox subcutaneous daily. 9. Code status: The patient is DNR/DNI. MOLST form scanned in chart from May admission. TIME SPENT: Approximately 60 minutes was spent on the admission of this patient , more than half of which was spent at bedside for interview and exam. [id number]/[facility] #: [id number] FIORDALIZA
[2018-11-22] MEDS: amLODIPine TAB* 5 MG PO SCH (09:54)
[2018-11-22] MEDS: Pantoprazole TAB * 40 MG TAB PO SCH ×2 (09:54→21:44)
[2018-11-22] MEDS: Gabapentin CAP(*) 300 MG PO SCH ×3 (09:54→21:52)
[2018-11-22] MEDS: Cyanocobalamin TAB* 500 MCG PO SCH (09:54)
[2018-11-22] MEDS: Enoxaparin(*) 30 MG/0.3 ML SYR SUBCUT SCH (09:56)
[2018-11-22] MEDS: Tamoxifen TAB* 10 MG PO SCH (11:46)
[2018-11-22 12:35] LABS: BUN/Creatinine Ratio 18.2 (8-20); Calcium 8.3 mg/dL (8.6-10.3); EGFR African American 85.4 (>60); EGFR Non-African American 70.6 (>60); Magnesium 1.9 mg/dL (1.9-2.7); Potassium 4.3 mmol/L (3.5-5.0)
[2018-11-22] MEDS ORDERED: cefTRIAXone(*) 1 GM in NS 0.9% 50 ML* 50 ML IVPB SCH (21:00)
[2018-11-22] MEDS ORDERED: Verapamil SR TAB* 240 MG PO SCH (21:00)
[2018-11-23] MEDS: Cyanocobalamin TAB* 500 MCG PO SCH (08:11)
[2018-11-23] MEDS: Magnesium Oxide TAB* 400 MG PO SCH (08:11)
[2018-11-23] MEDS: Gabapentin CAP(*) 300 MG PO SCH (08:11)
[2018-11-23] MEDS: Tamoxifen TAB* 10 MG PO SCH (08:12)
[2018-11-23] MEDS: Pantoprazole TAB * 40 MG TAB PO SCH (08:12)
[2018-11-23] MEDS: amLODIPine TAB* 5 MG PO SCH (08:12)
[2018-11-23] MEDS: Enoxaparin(*) 30 MG/0.3 ML SYR SUBCUT SCH (08:17)
[2018-11-23] MEDS ORDERED: Azithromycin TAB* 250 MG PO SCH (09:00)
[2018-11-23 11:39] VITALS: BP 121/74
--- NOTE | 2018-11-24 10:05 | DS ---
CC: Dr. Julita Riley DISCHARGE SUMMARY: DATE OF ADMISSION: 11/22/18 DATE OF DISCHARGE: 11/23/18 PRIMARY DIAGNOSIS: Pneumonia with a negative chest x-ray. SECONDARY DIAGNOSES: 1. Possible urinary tract infection with Pseudomonas aeruginosa and group B streptococcus. 2. Hypertension. 3. Chronic indwelling Zheng. 4. Peripheral neuropathy and chronic pain from multiple bony fractures in her spine. 5. Lymphoma in remission since 2008. 6. Myelodysplastic syndrome. 7. History of left-sided breast cancer, status post lumpectomy in 2012. 8. Esophageal spasm. 9. Irritable bowel. 10. Osteoporosis. 11. Hyponatremia. MEDICATIONS ON DISCHARGE: 1. Acetaminophen 1000 mg b.i.d. p.r.n. 2. Mylanta as needed. 3. Vitamin C 500 mg p.o. q. day. 4. Vitamin D 2000 units p.o. q. day. 5. Cranberry concentrate 1 tab p.o. q. day. 6. Probiotics 2 tabs p.o. q. day. 7. Melatonin 3 mg p.o. q.h.s. 8. Omeprazole 40 mg p.o. b.i.d. 9. Oxycodone/acetaminophen 5/325, 1 tab p.o. q.4 hours p.r.n. pain. 10. Amlodipine 5 mg p.o. q. day. 11. Azithromycin 250 mg p.o. q. day for 4 days. 12. Cefuroxime 500 mg p.o. b.i.d. for 6 days. 13. Clonidine patch 0.2 mg topically transdermal q.7 days. 14. Cyanocobalamin 1000 mcg p.o. q. day. 15. Gabapentin 300 mg p.o. b.i.d. 16. Magnesium oxide 400 mg p.o. q.12 hours. 17. Tamoxifen 20 mg p.o. q. day. 18. Verapamil SR 240 mg p.o. q.h.s. HOSPITAL COURSE: An 88-year-old woman with history of multiple cancers, all appearing in remission with indwelling Zheng catheter due to urinary retention, who was admitted with fatigue and fever up to 103.5. She did have a new cough with white sputum. Physical exam was notable for rales in the left lower lung field. Please see the history and physical on 11/22/18 for full presenting illness. The patient's chest x-ray on admission showed no infiltrates. She had urinalysis but due to the presence of indwelling Zheng and the lack of urinary symptoms, the results are difficult to interpret. She did have positive nitrite, trace leuk esterase, 3+ white cells, and 1+ bacteria, and the urine culture preliminary was growing Pseudomonas aeruginosa and group B strep. The patient's initial white count was 6.2. Sodium was 125, AST 18, ALT 56, and alkaline phosphatase of 111. She has had transient LFT elevations in the past in 2 years. The patient was treated empirically for pneumonia given her localizing symptoms to the chest with ceftriaxone and azithromycin IV. She quickly defervesced and felt much energetic. She initially required oxygen 2 L nasal cannula to keep her oxygen sats over 90%. On the day of discharge, she was able to wean off oxygen and ambulate in the hallway with oxygen saturations of 96%. After hydration overnight, her sodium was 125 to 127. On the day of discharge, she was ambulatory, eating well. DISPOSITION: To home where she lives with . FOLLOWUP: She should see her primary care doctor within 1 week. ACTIVITY: As tolerated. STATUS: Inpatient. CONDITION: Stable. DIET: Regular diet. TIME SPENT: I spent 40 minutes examining the patient, discussing with family and completing necessary paper work for discharge. [id number] #: [id number] FIORDALIZA
== END 2018-11-23 15:30 | disposition home health service (06) | DRG 194 ==
LOC: ED 21:11 → MEDTELE 11-22 04:35 → MED 11-23 07:50
PROVIDERS: ADMIT Internal Medicine; ATTEND Internal Medicine
DX: J18.9 Pneumonia, unspecified organism (principal); N39.0 Urinary tract infection, site not specified; E87.1 Hypo-osmolality and hyponatremia; B96.5 Pseudomonas (aeruginosa) (mallei) (pseudomallei) as the cause of diseases classified elsewhere; B95.1 Streptococcus, group B, as the cause of diseases classified elsewhere; I10 Essential (primary) hypertension; Z66 Do not resuscitate; G62.89 Other specified polyneuropathies; D46.9 Myelodysplastic syndrome, unspecified; K22.4 Dyskinesia of esophagus; K58.9 Irritable bowel syndrome, unspecified; R33.9 Retention of urine, unspecified; M81.0 Age-related osteoporosis without current pathological fracture; Z87.81 Personal history of (healed) traumatic fracture; Z85.3 Personal history of malignant neoplasm of breast; Z85.79 Personal history of other malignant neoplasms of lymphoid, hematopoietic and related tissues; Z79.1 Long term (current) use of non-steroidal anti-inflammatories (NSAID); Z79.899 Other long term (current) drug therapy; Z88.2 Allergy status to sulfonamides; Z88.7 Allergy status to serum and vaccine; Z88.8 Allergy status to other drugs, medicaments and biological substances; Z91.041 Radiographic dye allergy status
CPT/HCPCS: 36415; 71046; 80048; 80053; 81003; 81015; 83605; 83735; 84484; 85025; 85610; 85730; 87040; 87077; 87086; 87088; 87186; 87899; 99285; A9270-GY; G8978-GP-CK; G8979-GP-CI; J0456; J0696; J1650